=== PATIENT | female | born 1940 | race Caucasian/White ===

== ENCOUNTER → 2017-11-03 09:42 | Outpatient (CLI) | payer MEDICARE, OTHER, SELFPAY ==
--- NOTE | 2017-11-03 09:48 | US_ITS ---
STUDY: RENAL ULTRASOUND - COMPLETE REASON FOR EXAM: Female, 77 years old. Renal cysts. TECHNIQUE: Ultrasound evaluation of the kidneys was performed with real-time and static arango-scale imaging. COMPARISON: None. FINDINGS: RIGHT KIDNEY: Normal location of the right kidney, which is normal in size. The right kidney measures 9.5 x 4.4 x 5.1 cm. There is a normal cortex of the right kidney. The renal cortex measures 1.2 cm. No right renal masses evident. However, there are multiple small, round and ovoid anechoic foci throughout the renal cortex. These measure 1.2 x 1.2 x 1.2, 1.4 x 1.2 x 1.2, and 1.2 x 1.1 x 1.3 cm. Additionally, 2 echogenic foci are seen throughout the cortical medullary region both of these measure approximately 5 mm in size. There is no right hydronephrosis. DISTAL RIGHT URETER: There is non-visualization of the distal right ureter. There is no demonstrated right ureterovesical junction calculus. There is a visualized right ureteral jet. LEFT KIDNEY: Normal location of the left kidney, which is normal in size. The left kidney measures 10.3 x 5.1 x 5.4 cm. There is a normal cortex of the left kidney. The renal cortex measures 1.3 cm. There is no left renal mass. However, there are rounded and ovoid cystic foci. The these measure 2.9 x 5.5 x 3.7 cm, 1.4 x 1.7 x 1.6 cm and 1.9 x 1.7 x 1.4 cm. There are no left renal calculi. There is no left hydronephrosis. DISTAL LEFT URETER: There is non-visualization of the distal left ureter. There is no demonstrated left ureterovesical junction calculus. There is a visualized left ureteral jet. BLADDER: The distended urinary bladder has a volume of 76.2 ml. The empty urinary bladder has a volume of 10.7 ml. There is a normal wall thickness of the distended urinary bladder. There is no demonstrated mass within the urinary bladder. There are no demonstrated bladder calculi. US/Kidney and Bladder IMPRESSION: Bilateral renal cysts. Right nephrolithiasis versus nephrocalcinosis. Upon further review, potential left adrenal nodule measuring 4.[address] of the abdomen and pelvis performed May 14, 2015 indicates by report that this left adrenal finding is unchanged when compared to prior study. However, the adrenal nodule is larger on today's sonographic evaluation. Recommend comparison with recent/follow-up CT. Electronically Signed: Socrates Elizabeth MD at 12:28 EDT , Service support ,
== END ==
PROVIDERS: Family Provider Internal Medicine; PCP Internal Medicine; Visit Provider Nurse Practitioner Adult Health
DX: N28.1 Cyst of kidney, acquired (principal)
CPT/HCPCS: 76770

== ENCOUNTER → 2017-11-11 17:23 | Outpatient (CLI) | payer MEDICARE, OTHER, SELFPAY ==
--- NOTE | 2017-11-11 17:28 | CT_ITS ---
STUDY: CT ABDOMEN WITH CONTRAST REASON FOR EXAM: Female, 77 years old. Follow-up adrenal nodule from ultrasound and prior CT scan. RADIATION DOSAGE (If Supplied By Facility): CTDIvol = ( 17.03 ) mGy, DLP = ( 839.91 ) mGycm TECHNIQUE: Transaxial images were obtained post I.V. administration of 100 ml of Isovue 300 contrast, and with oral contrast. Sagittal and coronal images were reconstructed. Individualized dose optimization techniques were used for this CT. COMPARISON: Renal ultrasound 11/03/2017. CT scans 05/14/2015 and 04/21/2014. FINDINGS: There is mild atelectasis or fibrosis in the visualized posterior lung bases. The visualized portions of the heart are within normal limits. Normal liver. The gallbladder is partially contracted, which may be normal or abnormal, depending on when the patient last ate a fatty meal. Normal spleen. Normal pancreas. Normal bilateral adrenal glands. There is no demonstrated adrenal nodule in either the current or previous CT scan examinations. There are multiple right renal cysts, ranging up to 1.4 cm. Otherwise, normal right kidney. There are multiple left renal cysts, ranging up to 5.3 cm. Otherwise, normal left kidney. There is a moderate-sized hiatal hernia.. Normal small intestine. There are multiple colonic diverticula consistent with diverticulosis. There is non-visualization of the appendix. There is no evidence for appendicitis. There is diffuse atherosclerotic calcification of the abdominal aorta with elongation and tortuosity, but without a demonstrated aneurysm. Normal inferior vena cava. Normal retroperitoneum. There is an umbilical hernia which contains fat, but no bowel. There are multilevel degenerative changes of the visualized lumbar spine. CT/Abdomen WITH IV Contrast IMPRESSION: Moderate sized hiatal hernia. Colonic diverticulosis, without evidence for acute diverticulitis. Atherosclerosis. Bilateral renal cysts. No demonstrated urinary calculi or hydronephrosis. Contracted gallbladder, nonspecific finding, as above. No evidence for acute pathology. No demonstrated adrenal nodule. Electronically Signed: Ar Dempsey MD at 3:44 EDT , Service support ,
[2017-11-11 17:51] LABS: CREATININE FINGERSTICK 1.1 mg/dL (0.55-1.02)
== END ==
PROVIDERS: Family Provider Internal Medicine; PCP Internal Medicine; Visit Provider Internal Medicine
DX: E27.9 Disorder of adrenal gland, unspecified (principal); K44.9 Diaphragmatic hernia without obstruction or gangrene; K57.30 Diverticulosis of large intestine without perforation or abscess without bleeding; N28.1 Cyst of kidney, acquired
CPT/HCPCS: 74160; Q9967

== ENCOUNTER → 2018-04-01 17:32 | Outpatient (CLI) | payer MEDICARE, OTHER, SELFPAY | PROVIDERS: Family Provider Internal Medicine; PCP Internal Medicine; Visit Provider Nurse Practitioner Adult Health | DX: R30.0 Dysuria (principal) | CPT/HCPCS: 87086; 87088 ==

== ENCOUNTER → 2018-05-17 11:54 | Outpatient (CLI) | payer MEDICARE, OTHER, SELFPAY ==
[2018-05-17 13:37] LABS: Color, Urine Yellow (Yellow); Glucose, Dipstick Normal (Normal); Ketone-Dipstick 5 mg/dl (Negative); Leukocyte Esterase-Dipstick 500 /ul (Negative); Nitrite-Dipstick Negative (Negative); Occult Blood-Urine 25 /ul (Negative); Protein-Dipstick 30 mg/dl (Negative); Specific Gravity, Urine 1.025 (1.002-1.030); Urine Bilirubin Dipstick Negative (Negative); Urine Clarity Cloudy (Clear); Urine Urobilinogen 1 mg/dl (Normal)
[2018-05-17 13:45] LABS: Bacteria 2+ /hpf (None Seen); Mucous, Urine 1+ /hpf (<or=2+); Red Blood Cells-Urine 0-5 SEEN /hpf (0-5); Squamous Epithelial Cells - UA 0-5 SEEN /hpf (5-10); White Blood Cells 5-10 SEEN /hpf (0-5)
== END ==
PROVIDERS: Family Provider Internal Medicine; PCP Internal Medicine; Referring Provider Urology; Visit Provider Urology
DX: N39.0 Urinary tract infection, site not specified (principal); R10.84 Generalized abdominal pain
CPT/HCPCS: 81001; 87086; 87088

== ENCOUNTER 2019-11-15 14:32 | Emergency (ER) | payer OTHER, MEDICARE, SELFPAY ==
[2019-11-15 14:32] VITALS: BP 141/73; PULSE 67; RESP 16; TEMP 36.4
[2019-11-15 14:33] VITALS: BP 141/73; PULSE 67; RESP 16; TEMP 36.4; BMI 32.2
--- NOTE | 2019-11-15 14:43 | RAD_ITS ---
STUDY: X-RAY - LEFT WRIST REASON FOR EXAM: Female, 79 years old. PATIENT FELL. PAIN IN LEFT WRIST INTO LEFT HAND. PATIENT STATES HAS A HX OF A LEFT WRIST/FOREARM FX BEFORE. TECHNIQUE: 3 view(s) of the wrist were obtained. COMPARISON: Comparison is made with prior study dated March 02, 2010. FINDINGS: Evidence of prior fracture of the distal ulna as well as the distal radial metaphysis with residual deformity. There is degenerative arthrosis of the radiocarpal articulation. There is degenerative arthrosis of the distal radioulnar articulation. Normal carpal bones. Normal carpal articulations. Normal carpometacarpal articulation of the thumb. Normal second through fifth carpometacarpal articulations. Normal visualized metacarpal bones. Soft tissue swelling. RAD/Wrist min 3 Views IMPRESSION: No acute fracture is seen. Degenerative changes with evidence of prior fracture of the distal radius and distal ulna. Electronically Signed: Tonny Tee, at 15:04 EDT , Service support ,
--- NOTE | 2019-11-15 14:44 | ED.VIS.GEN ---
History of Present Illness Chief Complaint: Upper Extremity Injury Narrative: This patient is a 79-year-old female who presents after mechanical fall. She tripped and fell onto her left hand. She complains of pain to the left wrist and hand and also bit her lip. She did not lose consciousness. She has no headache. No vomiting. She is not anticoagulated. No neck chest abdominal or back pain. No injury to any other extremities. No paresthesias numbness weakness. Past Medical History - Allergies and Home Meds Allergies/Adverse Reactions: Allergies No Known Allergies Allergy (Verified 11/15/19 14:35) Primary Care Physician: Sanchez Lacey MD [Primary Care Provider] - Past Medical History: - - Hypertension, hyperlipidemia Review of Systems All systems negative except as indicated General: Denies: Fever Eyes: Denies: Visual changes - bilaterally ENT: Denies: Bilateral ear pain Cardiovascular: Denies: Chest pain Respiratory: Denies: Dyspnea Gastrointestinal: Denies: Nausea, Vomiting Musculoskeletal: Reports: Extremity Pain. Denies: Back pain Neurological: Denies: Headache Hematologic: Denies: Easy bruising, Easy bleeding Physical Exam Vital Signs/Narrative: Vital Signs Temp Pulse Resp BP 11/15/19 14:33 97.5 F L 67 16 141/73 H 11/15/19 14:32 97.5 F L 67 16 141/73 H Inital Vital Signs reviewed: Yes General: Well nourished Head: Normocephalic Eyes: EOMI ENT: Moist mucous membranes Neck: Supple Cardiovascular: Regular rate Respiratory: No distress Extremities: - - Tenderness of the left wrist and left hand without focal bony tenderness no obvious deformity palpable radial pulse brisk capillary refill normal sensation to light touch normal motor function no tenderness of the forearm elbow upper arm or shoulder Skin: Normal color Neurological: Alert, - - GCS of 15 with no focal or lateralizing neurological deficits Psychological: Normal affect Diagnostic/Tx/Re-eval Impressions Wrist X-Ray 11/15/19 14:43 IMPRESSION: No acute fracture is seen. Degenerative changes with evidence of prior fracture of the distal radius and distal ulna. Electronically Signed: Tonny Tee, at 15:04 EDT , Service support , Hand X-Ray 11/15/19 14:47 IMPRESSION: Degenerative joint disease of the hand and wrist, as described above. Electronically Signed: Tonny Tee, at 15:09 EDT , Service support , 11/15/19 14:43 Wrist min 3 Views [RAD] Stat 11/15/19 14:47 Hand Min 3 Views [RAD] Stat - Medical Decision Making X-rays obtained as above showed no acute fracture. Patient was given a Velcro wrist splint for comfort and advised on supportive care including rest, ice, elevation. Patient discharged. ED Disposition - Plan for ED Patient: Disposition: Home or Assisted Living Diagnosis: Left wrist sprain Instructions: ED Sprain Wrist Referrals: Sanchez Lacey MD [Primary Care Provider] -
--- NOTE | 2019-11-15 14:47 | RAD_ITS ---
STUDY: X-RAY - LEFT HAND REASON FOR EXAM: Female, 79 years old. PATIENT FELL. PAIN IN LEFT WRIST INTO LEFT HAND. PATIENT STATES HAS A HX OF A LEFT WRIST/FOREARM FX BEFORE. TECHNIQUE: 3 view(s) of the hand. COMPARISON: None. FINDINGS: Normal radiocarpal articulation. Normal distal radioulnar joint. Normal visualized carpal bones. Normal carpal articulations Normal carpometacarpal articulation of the thumb. Normal second through fifth carpometacarpal joints. Normal metacarpi. Normal metacarpophalangeal joint of the thumb. Normal interphalangeal joint of the thumb. Normal proximal and distal phalanges of the thumb. Normal metacarpophalangeal joints of the second through fifth fingers. There is diffuse articular joint space narrowing of the proximal and distal interphalangeal joints of the second through fifth fingers, but without erosive changes or periarticular soft tissue swelling. Normal phalanges of the second through fifth fingers. Soft tissue swelling. RAD/Hand Min 3 Views IMPRESSION: Degenerative joint disease of the hand and wrist, as described above. Electronically Signed: Tonny Tee, at 15:09 EDT , Service support ,
[2019-11-15 15:47] VITALS: PULSE 72; RESP 14; O2SAT 97
== END 2019-11-15 15:50 | disposition home or self-care (01) ==
PROVIDERS: Emergency Provider Emergency Medicine; PCP Internal Medicine
DX: S63.502A Unspecified sprain of left wrist, initial encounter (principal); W01.0XXA Fall on same level from slipping, tripping and stumbling without subsequent striking against object, initial encounter; M19.042 Primary osteoarthritis, left hand; E78.5 Hyperlipidemia, unspecified; I10 Essential (primary) hypertension
CPT/HCPCS: 73110; 73130; 99283

== ENCOUNTER → 2020-03-06 16:30 | Outpatient (CLI) | payer MEDICARE, OTHER, SELFPAY ==
[2020-03-06 17:01] LABS: Mucous, Urine 0 SEEN /hpf (<or=2+); Red Blood Cells-Urine 0 SEEN /hpf (0-5)
[2020-03-06 17:25] LABS: Color, Urine Yellow (Yellow); Glucose, Dipstick Normal (Normal); Ketone-Dipstick 5 mg/dl (Negative); Leukocyte Esterase-Dipstick 500 /ul (Negative); Nitrite-Dipstick Negative (Negative); Occult Blood-Urine 25 /ul (Negative); Protein-Dipstick Negative (Negative); Urine Bilirubin Dipstick Negative (Negative); Urine Clarity Sl. Cloudy (Clear); Urine Urobilinogen Normal (Normal)
[2020-03-06 17:33] LABS: White Blood Cells 10-25 SEEN /hpf (0-5)
[2020-03-06 17:34] LABS: Bacteria 1+ /hpf (None Seen); Squamous Epithelial Cells - UA 5-10 SEEN /hpf (5-10)
== END ==
PROVIDERS: PCP Internal Medicine; Referring Provider Urology; Visit Provider Urology
DX: M54.89 Other dorsalgia (principal); R31.21 Asymptomatic microscopic hematuria
CPT/HCPCS: 81001; 87086; 87088

== ENCOUNTER → 2020-09-06 10:52 | Outpatient (CLI) | payer MEDICARE, OTHER, SELFPAY | PROVIDERS: PCP Internal Medicine; Visit Provider Nurse Practitioner | DX: R00.2 Palpitations (principal); R07.9 Chest pain, unspecified | CPT/HCPCS: 93225; 93226 ==

== ENCOUNTER 2021-11-26 16:45 | Emergency (ER) | payer MEDICARE, OTHER, SELFPAY ==
[2021-11-26 16:45] VITALS: BP 134/81; PULSE 75; RESP 18; TEMP 36; O2SAT 98; BMI 30.9
[2021-11-26 17:33] LABS: Mucous, Urine 0 SEEN /hpf (<or=2+)
[2021-11-26 17:43] LABS: Color, Urine Yellow (Yellow); Glucose, Dipstick Normal (Normal); Ketone-Dipstick Negative (Negative); Leukocyte Esterase-Dipstick 500 /ul (Negative); Nitrite-Dipstick Negative (Negative); Occult Blood-Urine 10 /ul (Negative); Protein-Dipstick Negative (Negative); Urine Bilirubin Dipstick Negative (Negative); Urine Clarity Clear (Clear); Urine Urobilinogen 1 mg/dl (Normal)
[2021-11-26 17:52] LABS: Bacteria 1+ /hpf (None Seen); Red Blood Cells-Urine 0-5 SEEN /hpf (0-5); Squamous Epithelial Cells - UA 0-5 SEEN /hpf (5-10); White Blood Cells 5-10 SEEN /hpf (0-5)
[2021-11-26 18:01] VITALS: BP 136/72; O2SAT 97
--- NOTE | 2021-11-26 18:14 | EDS_ITS ---
HPI History of Present Illness Chief Complaint: Confusion Informant: patient and spouse/S.O. Onset/Context/Timing Onset: Month(s) Context: Gradual Onset Timing: Waxes and wanes Quality: Confusion Location: Generalized Worsened by: Nothing Relieved by: Nothing Narrative Narrative: Patient presents with increasing confusion that has been getting progressively worse over the past few months but became worse over the past couple days. states the patient is getting more forgetful. states patient cannot remember what she had for breakfast today. states patient has been having difficulty remembering her own birthday. Patient denies any fevers or chills. Patient states she has been having some low back pain. Patient denies any dysuria or hematuria. Patient denies any nausea or vomiting. Patient does have a history of Parkinson's disease and ADHD. [facility] Medical History Parkinson's disease Home Medications carbidopa-levodopa 2 tab PO TID 11/15/19 [History Last Taken Unknown] omeprazole 20 mg PO DAILY 11/15/19 [History Last Taken Unknown] paroxetine HCl 20 mg PO DAILY 11/15/19 [History Last Taken Unknown] cephalexin 500 mg PO Q6 #20 capsule 11/26/21 [Rx Last Taken Unknown] Allergy/AdvReac Type Severity Reaction Status Date / Time No Known Allergies Allergy Verified 11/26/21 16:48 Surgical History no surgical history no surgical history Social History Smoking Status: Never smoker ROS ROS ED Constitutional Constitutional ED: Denies chills or fever(s) Eyes Eyes: Denies blurry vision or change in vision ENT ENT ED: Denies rhinorrhea or sore throat Cardiovascular Cardiovascular: Denies chest pain or palpitations Respiratory/Chest Respiratory/Chest: Denies cough or dyspnea Gastrointestinal Gastrointestinal: Denies nausea or vomiting Genitourinary Genitourinary ED: Denies dysuria or hematuria Musculoskeletal Musculoskeletal: Reports back pain; Denies neck pain Integumentary Denies abscess or rash Neurologic Neurologic: Denies headache(s) or weakness Allergic/Immunologic Allergic/Immunologic ED: Denies mouth swelling or urticaria EXAM Physical Exam Const Vital Signs: 11/26/21 16:45 11/26/21 18:01 11/26/21 19:17 Temperature 96.8 F L Temperature Source Temporal Pulse Rate 75 68 Respiratory Rate 18 15 Blood Pressure 134/81 H 136/72 H 116/85 H Blood Pressure Mean 98 93 95 Pulse Ox 98 97 94 Oxygen Delivery Method Room Air Room Air Positive well nourished and well developed General Appearance ED: well developed and NAD HEENT Reports moist mucous membranes Neck supple and no JVD Resp normal respiratory effort and clear to auscultation bilaterally Cardio regular rate, regular rhythm and no murmurs GI normal to inspection, nondistended, normoactive bowel sounds and non-tender Palpation: soft Extremity normal to inspection General Extremety ED: Negative for edema or tenderness General Extremity: Negative for edema Neuro CN's II-XII intact bilaterally and no sensory deficits noted Neuro Narrative: Patient was able to remember her birthday here in the emergency department. Sensorium / Orientation: alert Motor Exam: strength 5/5 throughout Psych mental status grossly normal Skin no rashes or lesions noted MDM MDM MDM Narrative Medical decision making narrative: Urinalysis shows a leukocyte esterase of 500 with 5-10 white blood cells and 1+ bacteria. CBC was within normal limits. Comprehensive metabolic profile shows slightly elevated BUN of 24 but creatinine was normal. Lactate was normal. CT scan of the brain was obtained. There is no acute intracranial abnormality. This was interpreted by the radiologist and reviewed by myself. Urine culture was ordered. Patient was given a dose of Rocephin here. Patient was given IV fluids. Patient was advised of her findings. Patient was given a prescription for Keflex. Patient was instructed to start this tomorrow morning. Patient was instructed to follow-up with her primary care physician in 3 to 5 days. Patient and her understood and were agreeable with the plan. All questions were answered. Lab Data Attestation: I reviewed the patient's lab results. Labs: Laboratory Results - last 24 hr 11/26/21 11/26/21 11/26/21 17:25 18:40 18:40 WBC 7.5 RBC 4.12 L Hgb 12.9 Hct 40.6 MCV 98.5 MCH 31.3 MCHC 31.8 L RDW Std Deviation 47.8 H RDW Coeff of Sasha 13.2 Plt Count 252 MPV 9.5 Immature Gran % (Auto) 0.300 Neut % (Auto) 55.7 Lymph % (Auto) 31.1 [place] % (Auto) 6.8 Eos % (Auto) 5.7 H Baso % (Auto) 0.4 Absolute Neuts (auto) 4.2 Absolute Lymphs (auto) 2.34 Nucleated RBC % 0 Sodium 142 Potassium 3.8 Chloride 108 H Carbon Dioxide 30.0 Anion Gap 4 L BUN 24 H Creatinine 0.99 Estim Creat Clear Calc 38.48 Est GFR (MDRD) Af Amer 69 Est GFR (MDRD) Non-Af 57 L BUN/Creatinine Ratio 24.2 H Glucose 112 H Lactic Acid Calcium 8.8 Total Bilirubin 0.50 AST 14 L ALT 8 L Alkaline Phosphatase 112 Total Protein 7.1 Albumin 3.3 Globulin 3.8 Albumin/Globulin Ratio 0.9 Urine Color Yellow Urine Clarity Clear Urine pH 6.0 Ur Specific [place] 1.020 Urine Protein Negative Urine Glucose (UA) Normal Urine Ketones Negative Urine Occult Blood 10 H Urine Nitrite Negative Urine Bilirubin Negative Urine Urobilinogen 1 H Ur Leukocyte Esterase 500 H Urine RBC 0-5 SEEN Urine WBC 5-10 SEEN Ur Squamous Epith Cells 0-5 SEEN Urine Bacteria 1+ Urine Mucus 0 SEEN 11/26/21 18:40 WBC RBC Hgb Hct MCV MCH MCHC RDW Std Deviation RDW Coeff of Sasha Plt Count MPV Immature Gran % (Auto) Neut % (Auto) Lymph % (Auto) [place] % (Auto) Eos % (Auto) Baso % (Auto) Absolute Neuts (auto) Absolute Lymphs (auto) Nucleated RBC % Sodium Potassium Chloride Carbon Dioxide Anion Gap BUN Creatinine Estim Creat Clear Calc Est GFR (MDRD) Af Amer Est GFR (MDRD) Non-Af BUN/Creatinine Ratio Glucose Lactic Acid 0.8 Calcium Total Bilirubin AST ALT Alkaline Phosphatase Total Protein Albumin Globulin Albumin/Globulin Ratio Urine Color Urine Clarity Urine pH Ur Specific [place] Urine Protein Urine Glucose (UA) Urine Ketones Urine Occult Blood Urine Nitrite Urine Bilirubin Urine Urobilinogen Ur Leukocyte Esterase Urine RBC Urine WBC Ur Squamous Epith Cells Urine Bacteria Urine Mucus Radiography Diagnostic Testing: Clinical Impression(s) from Imaging Studies Brain CT 11/26/21 18:18 IMPRESSION: 1. No intracranial neoplasms or intracranial metastatic disease. 2. No ischemic or hemorrhagic cerebral infarction. 3. No subdural, epidural, intracerebral hematoma, hemorrhage or contusion. No subarachnoid hemorrhage. 4. Mild cortical, central, and cerebellar atrophy, appropriate for age. 5. No other intracranial pathology. 6. Normal calvarium without fractures. 7. Mucosal thickening in the posterior aspect of the left ethmoid sinus. The other paranasal sinuses are normal. Electronically Signed: Eugene Campos MD at 19:24 EDT , Discharge Plan Triage Chief Complaint: Confusion ED Provider: Santosh Santillan Dx/Rx/DC Orders Clinical Impression: Urinary tract infection, Confusion Instructions: ED CYSTITIS Female Adult Prescriptions: New cephalexin [cephalexin] 500 MG capsule 500 mg PO Q6 Qty: 20 RF: 0 No Action paroxetine HCl 20 MG tablet 20 mg PO DAILY RF: 0 omeprazole 20 MG capsule,delayed release(DR/EC) 20 mg PO DAILY RF: 0 carbidopa-levodopa 1 EACH tablet 2 tab PO TID RF: 0 Primary Care Provider: Sanchez Lacey Referrals: Sanchez Lacey MD [Primary Care Provider] - 3-5 Days Disposition Disposition: Home, Self Care
--- NOTE | 2021-11-26 18:18 | CT_ITS ---
STUDY: CT BRAIN WITHOUT CONTRAST ENHANCEMENT OF 1907 HOURS ON 11/26/2021 REASON FOR EXAM: 81-year-old female with confusion. RADIATION DOSAGE (If Supplied By Facility): CTDIvol = ( 44.99 ) mGy, DLP = ( 779.24 ) mGycm TECHNIQUE: Transaxial CT imaging of the brain was performed without administration of intravenous contrast material. COMPARISON: No relevant priors. FINDINGS: There is mild cortical, central, and cerebellar atrophy. Bilateral basal ganglia calcification is noted, not unusual for age. There is no evidence of ischemic or hemorrhagic surgical infarct. There is no evidence of intracranial neoplasms or intracranial metastatic disease. There is no midline shift. No subdural, epidural, or intracerebral hematoma, hemorrhage or contusion. The sella and pituitary are normal. The posterior fossa is normal. The brainstem has a normal appearance. Normal calvarium without linear or depressed skull fractures. There is mucosal thickening of posterior left ethmoid sinus. The other paranasal sinuses are normal. CT/Brain/Head without Contrast IMPRESSION: 1. No intracranial neoplasms or intracranial metastatic disease. 2. No ischemic or hemorrhagic cerebral infarction. 3. No subdural, epidural, intracerebral hematoma, hemorrhage or contusion. No subarachnoid hemorrhage. 4. Mild cortical, central, and cerebellar atrophy, appropriate for age. 5. No other intracranial pathology. 6. Normal calvarium without fractures. 7. Mucosal thickening in the posterior aspect of the left ethmoid sinus. The other paranasal sinuses are normal. Electronically Signed: Eugene Campos MD at 19:24 EDT ,
[2021-11-26 18:53] LABS: Absolute Lymphocyte Count 2.34 X10^3/uL (0.83-4.51); Absolute Neutrophil Count 4.2 X10^3/uL (2.0-7.7); Basophil# 0.03 X10^3/uL; Basophil% 0.4 % (0-1); Eosinophil# 0.43 X10^3/uL; Eosinophils% 5.7 % (0-5); Hematocrit 40.6 % (37-47); Hemoglobin 12.9 g/dL (12.0-15.0); Lymphocyte # 2.34 X10^3/ul (0.83-4.51); Lymphocyte % 31.1 % (19-41); Mean Corp Hgb Conc 31.8 g/dL (32-36); Mean Corpuscular Hgb 31.3 pg (27.0-32.0); Mean Corpuscular Volume 98.5 fL (81-99); Mean Platelet Vol. 9.5 fl (6.2-12.0); Monocyte# 0.51 X10^3/uL; Monocyte% 6.8 % (0-10); NRBC Flagged by Analyzer 0 % (0-5); Neutrophil % 55.7 % (47-70); Platelet Count 252 K/mm3 (150-450); RBC Distribution Width CV 13.2 % (11.6-14.6); RBC Distribution Width SD 47.8 fl (35.1-43.9); Red Blood Count 4.12 M/mm3 (4.2-5.4); White Blood Count 7.5 K/mm3 (4.4-11.0)
[2021-11-26] MEDS: 0.9% Normal Saline 1,000 ML 1000 ML IV (18:59)
[2021-11-26 19:11] LABS: ALB/GLOB Ratio 0.9 RATIO (0.9-2.4); AST(SGOT) 14 U/L (15-37); Alanine Aminotransfer ALT/SGPT 8 U/L (13-56); Albumin, Serum 3.3 g/dL (3.2-5.0); Alkaline Phosphatase 112 U/L (45-117); Anion Gap 4 (5-15); BUN 24 mg/dL (7-18); BUN/Creat Ratio 24.2 RATIO (10-20); Calcium,Total 8.8 mg/dL (8.5-10.1); Chloride 108 mmol/L (98-107); Creatinine, Serum 0.99 mg/dL (0.55-1.02); EST Glomerular Filtration Rate 57 mL/min (>60); Est Glom Filt Rate - Afr Amer 69 mL/min (>60); Estimated Creatinine Clearance 38.48 ml/min; Globulin 3.8 g/dL (2.2-4.2); Glucose 112 mg/dL (74-106); Potassium 3.8 mmol/L (3.5-5.1); Protein, Total 7.1 g/dL (6.4-8.2); Sodium Level 142 mmol/L (136-145)
[2021-11-26 19:14] LABS: Lactic Acid 0.8 mmol/L (0.4-1.9)
[2021-11-26 19:17] VITALS: BP 116/85; PULSE 68; RESP 15; O2SAT 94
[2021-11-26] MEDS: Ceftriaxone 1 GM/50 ML BAG IV (19:45)
[2021-11-26 20:57] VITALS: BP 132/75
== END 2021-11-26 20:58 | disposition home or self-care (01) ==
PROVIDERS: Emergency Provider Emergency Medicine; PCP Internal Medicine; Visit Provider Emergency Medicine
DX: N39.0 Urinary tract infection, site not specified (principal); G20 Parkinson's disease; R41.0 Disorientation, unspecified; F90.9 Attention-deficit hyperactivity disorder, unspecified type
CPT/HCPCS: 70450; 80053; 81001; 83605; 85025; 87040; 87086; 99283; J7030; A4216

== ENCOUNTER → 2021-12-19 | Outpatient (CLI) | payer MEDICARE, OTHER, SELFPAY | END | disposition home or self-care (01) | PROVIDERS: PCP Internal Medicine; Visit Provider Obstetrics & Gynecology | DX: N39.0 Urinary tract infection, site not specified (principal) | CPT/HCPCS: 87077; 87086; 87088 ==

== ENCOUNTER → 2022-03-18 | Outpatient (CLI) | payer MEDICARE, OTHER, SELFPAY | END | disposition home or self-care (01) | PROVIDERS: PCP Internal Medicine; Referring Provider Urology; Visit Provider Urology | DX: N30.01 Acute cystitis with hematuria (principal) | CPT/HCPCS: 87086; 87088 ==

== ENCOUNTER → 2022-03-20 | Outpatient (CLI) | payer MEDICARE, OTHER, SELFPAY | END | disposition home or self-care (01) | PROVIDERS: PCP Internal Medicine; Visit Provider Urology | DX: N30.01 Acute cystitis with hematuria (principal) | CPT/HCPCS: 87086 ==

== ENCOUNTER → 2023-04-10 | Outpatient (CLI) | payer MEDICARE, OTHER, SELFPAY ==
--- NOTE | 2023-04-10 13:01 | CT_ITS ---
CT LEFT LOWER EXTREMITY WITHOUT CONTRAST. CLINICAL INDICATION: OSTEOARTHRITIS LEFT KNEE. PRE-OP [place] [employer] KNEE PROTOCOL TECHNIQUE: Axial CT images of the LEFT lower extremity was performed without IV contrast material. Coronal and sagittal reformats were provided. RADIATION DOSAGE (If Supplied By Facility): CTDIvol = ( 18.76 ) mGy, DLP = ( 1228.81 ) mGycm COMPARISON: None FINDINGS: Noncontrast CT of the left hip knee and ankle per [facility] protocol. The patient does have some osteoarthritic change involving the left hip with joint space narrowing as well as subchondral cyst formation and osteophytosis around the left femoral head. There is some trochanteric enthesopathy. No acute fracture is detected. Degenerative changes are present at the pubic symphysis. There is colonic diverticular disease. Left adnexal clips are present. Regarding the knee, the patient does have moderate to severe medial and [id number] lateral tibiofemoral joint compartmental narrowing. Joint loose bodies are detected. No acute fracture is present. A joint effusion is small. At the ankle there is mild tibiotalar joint space narrowing. Achilles enthesopathy. Plantar spur. Some degenerative changes are present involving the articulations of the midfoot. CT/Extremity Lower without Contra IMPRESSION: Preprocedural imaging provided of left lower extremity. Electronically Signed: Arley Rollins MD at 20:29 EDT ,
[2023-04-10 14:43] LABS: Absolute Lymphocyte Count 1.54 X10^3/uL (0.83-4.51); Absolute Neutrophil Count 3.4 X10^3/uL (2.0-7.7); Basophil# 0.04 X10^3/uL; Basophil% 0.7 % (0-1); Eosinophil# 0.31 X10^3/uL; Eosinophils% 5.4 % (0-5); Hemoglobin 13.2 g/dL (12.0-15.0); Lymphocyte # 1.54 X10^3/ul (0.83-4.51); Lymphocyte % 26.9 % (19-41); Mean Corp Hgb Conc 31.4 g/dL (32-36); Mean Corpuscular Hgb 30.6 pg (27.0-32.0); Mean Corpuscular Volume 97.2 fL (81-99); Monocyte# 0.42 X10^3/uL; Monocyte% 7.3 % (0-10); NRBC Flagged by Analyzer 0 % (0-5); Neutrophil % 59.5 % (47-70); Platelet Count 263 K/mm3 (150-450); RBC Distribution Width CV 12.7 % (11.6-14.6); RBC Distribution Width SD 45.9 fl (35.1-43.9); Red Blood Count 4.32 M/mm3 (4.2-5.4); White Blood Count 5.7 K/mm3 (4.4-11.0)
[2023-04-10 15:06] LABS: Albumin, Serum 3.4 g/dL (3.2-5.0); Anion Gap 5 (5-15); BUN 32 mg/dL (7-18); BUN/Creat Ratio 25.4 RATIO (10-20); Calcium,Total 8.9 mg/dL (8.5-10.1); Chloride 109 mmol/L (98-107); Creatinine, Serum 1.26 mg/dL (0.55-1.02); EST Glomerular Filtration Rate 43 mL/min (>60); Est Glom Filt Rate - Afr Amer 52 mL/min (>60); Glucose 121 mg/dL (74-106); Potassium 3.8 mmol/L (3.5-5.1); Sodium Level 140 mmol/L (136-145)
[2023-04-10 15:14] LABS: Hemoglobin A1c 5.6 % (3.8-5.6)
[2023-04-10 15:15] LABS: Magnesium 2.1 mg/dL (1.6-2.6); Thyroid Stim Hormone (TSH) 3.12 uIU/mL (0.358-3.74)
== END | disposition home or self-care (01) ==
PROVIDERS: Anesthesiology; PCP Internal Medicine; Referring Provider Orthopaedic Surgery; Visit Provider Orthopaedic Surgery
DX: Z01.818 Encounter for other preprocedural examination (principal); R94.6 Abnormal results of thyroid function studies; R73.09 Other abnormal glucose; M17.12 Unilateral primary osteoarthritis, left knee
CPT/HCPCS: 36415; 73700; 80048; 82040; 83036; 83735; 84443; 85025; 87081

== ENCOUNTER 2023-04-27 11:06 | Observation (INO) | payer MEDICARE, OTHER, SELFPAY ==
[2023-04-27] VITALS (11 sets, daily range): BP systolic 94–149; BP diastolic 41–82; PULSE 66–98; RESP 14–18; TEMP 36.1–36.8; O2SAT 92–100; BMI 30.3
[2023-04-27] MEDS: Gabapentin 600 MG Tablet PO (06:24)
[2023-04-27] MEDS: Acetaminophen 500 MG Tablet 1000 MG PO ×3 (06:25→21:50)
[2023-04-27 06:26] LABS: Bedside Glucose 90 mg/dL (74-106)
[2023-04-27] MEDS: Lactated Ringers 1,000 ML 999 ML IV ×2 (06:32→08:10)
[2023-04-27] MEDS: Magnesium 1 GM over 15 mins IV (06:35)
[2023-04-27] MEDS: Lactated Ringers 1,000 ML 75 ML IV (06:37)
--- NOTE | 2023-04-27 07:30 | KNEE_PTH ---
PATIENT: SILVIANO WU LOC: MS3 U#:[id number] AGE/SX: 82/F [place] [facility] [place]: Dr. Ayaz Estrella DO : 1940 BED: 1 DIS: 04/28/2023 SPEC #: [id number] RECD: 04/27/23 10:47 STATUS: SIENNA REFidel #: [id number] SAIMA: 04/27/23 07:[address]: Ayaz Estrella DEPT: SURGICAL PATHOLOGY RECD BY: Deep Cornelius ENTERED: 04/27/23 11:14 SP TYPE: TOTAL KNEE OTHR DR: Dr. Sanchez Lacey MD Tissues: Knee, NOS Procedures: Decalcification bone/plaque Surgery Specimen Level IV HEADER OPERATION: ERAS, total knee replacement robotic arm assist PRE-OP DIAGNOSIS: Severe osteoarthritis left knee TISSUE SUBMITTED: Left knee bone and tissue MICROSCOPIC DIAGNOSIS Bone and tissue, left knee, total knee replacement/resection: Pieces of bone with degenerative osteoarthritic changes. DANIELA:ingrid 04/30/2023 MICROSCOPIC DESCRIPTION Slides are reviewed. GROSS DESCRIPTION Received is one container designated bone and soft tissue left knee. The specimen consists of multiple fragments of schulz-yellow bone measuring in aggregate 10.0 x 10.0 x 3.0 cm. No soft tissue is identified. A number of bony fragments contain articular surfaces consistent with tibial plateau and femoral condyle and displaying prominent osteophyte formation, eburnation and bone erosion. Freight Tallier sections are submitted in one cassette after decalcification. / DANIELA:ingrid 04/27/2023 TC:5 CPT: 03417, 21878
[2023-04-27] MEDS: Cefazolin 2 GM in 0.9% Normal Saline (100mL Bag) 100 ML IV (07:40)
[2023-04-27] MEDS: dexAMETHasone 10 MG/ML Vial IV (08:00)
[2023-04-27] MEDS: JPS (Morphine 10mg/ml) OPERA.SITE (08:57)
[2023-04-27] MEDS: TRANEXAMIC ACID 2,000 MG, 0.9% Normal Saline (100mL Bag) 100 ML OPERA.SITE (08:58)
--- NOTE | 2023-04-27 09:06 | PCM.OPRPT ---
Report of Operation Date of Procedure: 04/27/23 Pre-Operative Diagnosis: OA Left knee Post-Operative Diagnosis: same Surgery/Procedure Performed:: Left TKR Description of Surgical Findings:: Report of Operation Date of Procedure: 04/27/2023 Preoperative Diagnosis: [Left ] knee primary osteoarthritis Postoperative Diagnosis: [Left ] knee primary osteoarthritis Operation: Robotic Assisted Knee Total Arthroplasty, [Left ] knee Surgeon: Dr Ayaz Estrella DO Mud Jack Nozzle Worker: Freddy Gordon PA-C Anesthesia: spinal Anesthesiologist: Henri Donnelly M.D. Findings: Stable knee with good patella tracking Specimen(s): Bony cuts Complications: No intraoperative complications Estimated Blood Loss: 20 cc IV Fluids: 1000 cc crystalloid Implants Used: 1. [place] Triathlon press fit size 3 CR femur 2. [place] Triathlon size 3 tibia 3. 29 mm patella 4. 9 mm CS polyethylene Brief History Operative Indications: [ (82 y/o female) ] with history of [left ] knee osteoarthrosis with radiographic findings with loss of joint space, osteophyte formation and subchondral sclerosis. Failed conservative measures as mentioned in the H&P. Discussion of total knee arthroplasty as well as risk and benefits were discussed with the patient including but not limited to blood loss, DVTs, PEs, neurovascular damage, general risk of anesthesia including loss of life, and stiffness or instability were also discussed with the patient. Patient demonstrated understanding and was able to sign informed consent. Procedure: On the date of procedure, patient's [left ] lower extremity was marked in the preoperative area. The patient was then taken back to the operating room where that patient was placed on the table in the supine position. All bony prominences were identified and well-padded. Anesthesia assumed control of the C-spine and airway throughout the remainder of the procedure. A tourniquet was placed on the [left ] upper thigh and the leg was prepped in a sterile fashion. The surgeon then scrubbed at this time. Upon reentering the room, the [left ] lower extremity was draped in a standard orthopedic fashion. A timeout was then called and everyone agreed upon the side, the site, the procedure to be performed, patient's identity and antibiotics given. Esmarch bandage was used to exsanguinate the extremity and the tourniquet was placed up to 250 mmHg with the knee in flexion. A midline skin incision was made and a sharp dissection was taken down through skin, subcutaneous tissue and fat. The standard medial parapatellar incision was made and the patella was subluxed laterally. An appropriate deep MCL release was done and the fat pad was resected. Our attention was then directed to the patella. The patella was everted and a flat resection was made. The knee was then flexed up and 2 femoral pins were placed inside the incision and 2 tibial pins were placed outside the incision in the medial tibia bicortically. Once this was completed, the 2 checkpoints in the femur and tibia were placed. Knee was then flexed up and the bony landmarks were registered. Once the was completed, the knee taken through range of motion and manually stressed allowing us to plan for an appropriate tibial cut. The robotic arm was brought into the field sterilely and checkpoint and saw were registered. Based on the patient's deformity, the tibial cut was made in [2 degrees varus ]. At this time, the tensioner was then placed in the joint and ligament tension was checked at 90 degrees and full extension. Based on the patient's ligamentous tension, appropriate adjustments were made to the operative plan and ligament releases were done. Once we were happy with our operative plan with balanced flexion and extension gaps, our attention was directed to the femur. The robot was brought into the field sterilely and registered. Posterior condylar cuts, anterior chamfer cuts and anterior cuts were appropriately made for a [size 3 ] femur. When these were completed, the saws were switched out in the distal femoral and posterior chamfer cuts were made. Protecting the soft tissue throughout this time. A [ size 3 ] base plate was selected. The knee was flexed to 90 degrees and soft tissues and posterior osteophytes were removed from the joint. 40 cc of the periarticular injection was injected into the posterior medial corner of the joint. The appropriate trials were then placed on the femur and tibia. A trial polyethylene was trialed to ensure proper balancing and stability of the knee. The appropriate tibial internal rotation was then marked with a bovie. Our attention was then directed to the patella. The lug holes were drilled and the patella trial was placed. Patellar tracking was checked and deemed appropriate. Once we were happy, lug holes were drilled for the femur and trial components were removed. The tibia was subluxed and pinned into place and the keel was punched and drilled appropriately. Final components were verified and opened. The wound was copiously irrigated with normal saline. The components were impacted into place with the tibia, femur and finally the patella. The trial poly component was placed and the knee was placed in full extension. The tracking, alignment and balance were verified and a [ 9 mm CS ] polyethylene component was placed. Once the final components were placed an Irrisept lavage was performed and the wound was copiously irrigated with normal saline solution and the periarticular injection was given. the wound was closed in a layer-valdivia fashion using #1 vicryl interrupted sutures for the arthrotomy, 2-0 interrupted vicryl suture for the subcuticular layer and yogesh for final skin closure. A sterile compressive dressing was then placed. The patient was then awakened from anesthesia, transferred to the [place] [place] and transferred to the PACU for recovery. My physician admin assistant was a vital part of this case. He was important in appropriate retraction during the case, and protection of soft tissues during bony cuts. His intimate knowledge of the case and my steps aided in safe and expedient completion of the procedure as well as appropriate position of the leg during the case. He was also vital in assisting with closure under my direct supervision. Due to the complexity of this case, robotic arm was used to assist in the surgery to improve accuracy and clinical outcomes. Post-op Plan: DVT ppx; ASA 81 mg BID, thigh high compression stockings Follow up: in office in 2 weeks for wound check PT: to start POD #0 at hospital, outpatient PT should be arranged. Preoperative antibiotic: Ancef 2 grams IV Ayaz Estrella DO Surgeon: Ayaz Estrella electronics design engineer: Freddy Gordon Type of Anesthesia: Spinal Anesthesiologist: Henri Donnelly Specimen's removed: bone Estimated Blood Loss (mL): 20 cc Fluids Replaced: 1000 cc crystalloid Admit VTE Documentation VTE Present on Admission: No VTE Mechan Device Prophylaxis: SCD's and Thigh High SOFI Hose VTE Pharm Prophylaxis ordered?: Yes
--- NOTE | 2023-04-27 09:35 | RAD_ITS ---
STUDY: X-RAY - LEFT KNEE REASON FOR EXAM: Female, 82 years old. Post op -- AP and Lateral xray of operative knee in PACU. TECHNIQUE: 2 views of the left knee. COMPARISON: None. FINDINGS: There are new postoperative changes related to left total knee arthroplasty with patellar resurfacing. There is a vertical staple line along the anterior aspect of the knee. There is gas in the patellofemoral joint recess and anterior soft tissues, compatible with recent surgery. The orthopedic hardware components are intact. There is no periprosthetic fracture. Normal proximal tibiofibular articulation. RAD/Knee 1 or 2 Views IMPRESSION: New postoperative changes related to left total knee arthroplasty. Electronically Signed: Anish Mueller MD at 9:52 EDT ,
[2023-04-27] MEDS: Lactated Ringers 1,000 ML 125 ML IV (10:44)
[2023-04-27] MEDS: Aspirin 81 MG TAB.CHEW PO ×2 (11:57→21:51)
[2023-04-27] MEDS: Paroxetine 20 MG Tablet 30 MG PO (11:58)
[2023-04-27] MEDS: Senna/Docusate Sodium 1 Tablet 2 TABLET PO ×2 (11:58→21:50)
[2023-04-27] MEDS: Levothyroxine 50 MCG Tablet PO (11:58)
[2023-04-27] MEDS: Carbidopa/Levodopa 25/100 Tablet PO ×4 (11:59→21:50)
[2023-04-27] MEDS: Pantoprazole Sodium 20 MG Tablet PO (11:59)
[2023-04-27] MEDS: Potassium Chloride Oral Tablet 10 MEQ PO (11:59)
[2023-04-27] MEDS: Cefazolin 1 GM/50 ML BAG IV ×2 (14:57→22:43)
[2023-04-27] MEDS: Atorvastatin Calcium 40 MG Tablet PO (21:51)
[2023-04-28 03:03] VITALS: BP 142/97; PULSE 60; RESP 16; TEMP 36.7; O2SAT 94
[2023-04-28 06:19] LABS: Hemoglobin 9.1 g/dL (12.0-15.0); Mean Corp Hgb Conc 32.5 g/dL (32-36); Mean Corpuscular Hgb 31.9 pg (27.0-32.0); Mean Corpuscular Volume 98.2 fL (81-99); Mean Platelet Vol. 9.4 fl (6.2-12.0); Platelet Count 176 K/mm3 (150-450); RBC Distribution Width SD 46.1 fl (35.1-43.9); Red Blood Count 2.85 M/mm3 (4.2-5.4)
[2023-04-28 07:01] LABS: Anion Gap 6 (5-15); BUN 25 mg/dL (7-18); BUN/Creat Ratio 21.7 RATIO (10-20); Calcium,Total 8.2 mg/dL (8.5-10.1); Chloride 110 mmol/L (98-107); Creatinine, Serum 1.15 mg/dL (0.55-1.02); EST Glomerular Filtration Rate 48 mL/min (>60); Est Glom Filt Rate - Afr Amer 58 mL/min (>60); Glucose 111 mg/dL (74-106); Potassium 4.2 mmol/L (3.5-5.1); Sodium Level 141 mmol/L (136-145)
[2023-04-28 07:25] VITALS: BP 104/54; PULSE 58; RESP 18; TEMP 36.5; O2SAT 100
[2023-04-28] MEDS: Acetaminophen 500 MG Tablet 1000 MG PO ×2 (07:30→14:45)
[2023-04-28] MEDS: Levothyroxine 50 MCG Tablet PO (07:30)
[2023-04-28 09:52] VITALS: O2SAT 94
[2023-04-28 10:30] VITALS: BP 108/56; PULSE 67; RESP 18; TEMP 36.6; O2SAT 94
[2023-04-28] MEDS: Senna/Docusate Sodium 1 Tablet 2 TABLET PO (10:31)
[2023-04-28] MEDS: amLODIPine 2.5 MG Tablet PO (10:31)
[2023-04-28] MEDS: Carbidopa/Levodopa 25/100 Tablet PO ×3 (10:31→17:42)
[2023-04-28] MEDS: Pantoprazole Sodium 20 MG Tablet PO (10:31)
[2023-04-28] MEDS: hydroCHLOROthiazide 12.5mg 12.5 MG PO (10:31)
[2023-04-28] MEDS: Potassium Chloride Oral Tablet 10 MEQ PO (10:31)
[2023-04-28] MEDS: Aspirin 81 MG TAB.CHEW PO (10:31)
[2023-04-28] MEDS: Paroxetine 20 MG Tablet 30 MG PO (10:32)
[2023-04-28 11:06] VITALS: O2SAT 95
--- NOTE | 2023-04-28 11:20 | CASEMGMT ---
Addendum entered by Rosa Pruett 04/28/23 16:07: Pt and family aware that she was accepted by inpatient rehab and she can dc today. They deny any questions. Pt nurse aware as well. Addendum entered by Rosa Pruett 04/28/23 13:08: JAVI ROBB back into pt room. Pt states she is agreeable to inpt rehab unit at [facility]. Updated SW. Original Note: JAVI ROBB Assessment: Face to Face with pt for initial transition planning/care coordination assessment. JAVI ROBB introduced self and role at [facility], pt voices understanding and consents to assessment. Pt is A&O x4 and answers all questions appropriately at this time. Pt sitting up in chair with dtr and present in room. Pt agreeable to assessment with visitors present. Care providers, pharmacy, and demographics verified/updated. Admitting Dx: TKR PCP:Abhijit Specialists:lizzeth Estrella; Zoë Whitmore at [facility] in [place] for parkinsons Preferred Pharmacy: [facility] Insurance: [facility], [facility] Prescription Benefit: yes LNOK: Lefty Lowe, ; Toyin Thomas, dtr Living Arrangements: Pt lives with in a two story home with 1 step to enter. Pt reports she is I in ADL's and denies concerns at home. Transportation: Pt transports her to medical appts. Pt states she can drive short distances but her does not allow her. DME:polar care, tub bench, FWW, high rise toilet HHC/SNF: Pt denies hx of Pt dtr and are inquiring about the inpatient rehab unit at [facility] for pt post hospitalization. Pt states she is not sure if she wants this yet. Pt has some food stuck in her throat, notified pt nurse. Pt asks to come back for her decision. Pt has outpt therapy set up at [facility] for tomorrow. Pt states no further concerns/needs. CM to follow. Advised pt to ask CM if any further question/concerns/needs arise, voices understanding. Pt Goal: TBD Plan: Home with outpt therapy already set up vs Inpatient Rehab unit
[2023-04-28 15:03] VITALS: BP 100/52; PULSE 65; RESP 18; TEMP 36.6; O2SAT 93
--- NOTE | 2023-04-28 15:23 | CASEMGMT ---
Met with patient to complete HUNT form. HUNT form explained to patient who voiced understanding and signed form. Original form placed in pt?s chart and copy provided to?patient. Stacey Lassiter, Discharge Planning Asst.
== END 2023-04-28 18:46 ==
LOC: SDC 04-28 12:56 → MS3 04-28 12:56
PROVIDERS: Admitting Provider Orthopaedic Surgery; PCP Internal Medicine; Referring Provider Orthopaedic Surgery; Visit Provider Orthopaedic Surgery
PROC: 0SRD0JZ Replacement of Left Knee Joint with Synthetic Substitute, Open Approach (ICD-10-PCS; CPT 27447; principal; 2023-04-27 07:00)
DX: M17.12 Unilateral primary osteoarthritis, left knee (principal); I10 Essential (primary) hypertension; E78.00 Pure hypercholesterolemia, unspecified; E07.9 Disorder of thyroid, unspecified; Z86.718 Personal history of other venous thrombosis and embolism; Z87.891 Personal history of nicotine dependence; Z79.899 Other long term (current) drug therapy; Z79.890 Hormone replacement therapy; K21.9 Gastro-esophageal reflux disease without esophagitis; G20.A1 Parkinson's disease without dyskinesia, without mention of fluctuations
CPT/HCPCS: 27447; S2900; 01402; 64447; 96361; 96365; 96366 ×2; 36415; 73560; 80048; 82962; 85027; 88305; 88311; 93005; 94668; 97110; 97116; 97162; 97166; 97530; 97535; 99221; J7120; G0378; J2405; J3475

== ENCOUNTER 2023-04-28 18:50 | Inpatient (IN) | payer MEDICARE, OTHER, SELFPAY ==
[2023-04-28 19:18] VITALS: BMI 31.8
--- NOTE | 2023-04-28 20:23 | HP.PCM_ITS ---
[facility] - General General Date of Admission: 04/28/23 Date of Service: 04/29/23 Chief Complaint: Here for 3 hours daily rehabilitation. HPI Narrative SILVIANO WU, is a 82 Female who presents with followin04/27/2023 Dr. Estrella performed left total knee replacement. 04/28/2023 Admit to for 3 hours daily rehabilitation, strengthening, prior to discharge home with . [facility] Medical History (Updated 04/28/23 @ 20:[address] Korey Wallace MD) Alcohol use Arthritis Chronic cough DVT (deep venous thrombosis) Former smoker Gastric reflux History of edema History of Holter monitoring History of pain when walking History of steroid therapy History of stress test Hypertension Kidney stone Parkinson's disease Post-menopausal Thyroid disease Wears glasses Wears partial dentures Home Medications carbidopa 25 mg-levodopa 100 mg tablet 1.5 tab PO 4X/DAY Parkinson 11/15/19 [History Last Taken 04/28/23] omeprazole 20 mg capsule,delayed release 20 mg PO DAILY GERD 11/15/19 [History Last Taken 04/28/23] paroxetine HCl 20 mg tablet 30 mg PO DAILY Depression 11/15/19 [History Last Taken 04/28/23] amlodipine 2.5 mg tablet 2.5 mg PO DAILY Blood Pressure 04/06/23 [History Last Taken 04/28/23] atorvastatin 40 mg tablet 40 mg PO QHS Cholesterol 04/06/23 [History Last Taken 04/27/23] hydrochlorothiazide 12.5 mg capsule 12.5 mg PO DAILY Blood Pressure 04/06/23 [History Last Taken 04/28/23] levothyroxine 50 mcg tablet 50 mcg PO DAILY Thyroid 04/06/23 [History Last Taken 04/28/23] meloxicam 15 mg tablet 15 mg PO DAILY Arthritis 04/06/23 [History Last Taken 04/26/23] potassium chloride 10 mEq tablet,extended release (Klor-Con) 10 meq PO DAILY supplement 04/06/23 [History Last Taken 04/28/23] aspirin 81 mg tablet,delayed release (Adult Low Dose Aspirin) 81 mg PO BID DVT Proph 04/28/23 [History Last Taken 04/28/23] Allergy/AdvReac Type Severity Reaction Status Date / Time No Known Allergies Allergy Verified 04/27/23 06:00 Surgical History (Updated 04/28/23 @ 20:42 by Kassidy Mcclain) History of carpal tunnel surgery of right wrist Hx of bilateral cataract extraction Hx of tubal ligation Status post left knee replacement Social History (Updated 04/28/23 @ 20:[address] Korey Wallace MD) household members: spouse Smoking Status: Former smoker alcohol intake: current details: Social. substance use type: does not use ROS Constitutional Constitutional: Denies chills, fever(s) or weight gain ENT HEENT: Denies headache(s), nasal congestion or nasal discharge Cardiovascular Cardiovascular: Denies chest pain or palpitations Respiratory/Chest Respiratory/Chest: Denies cough, excessive phlegm production or shortness of breath with exertion Gastrointestinal Gastrointestinal: Denies abdominal pain, nausea or vomiting Genitourinary Genitourinary: Denies dysuria Musculoskeletal Musculoskeletal: Denies joint pain or joint swelling Integumentary Integumentary: Denies rash or wounds Neurologic Neurologic: Denies focal weakness, numbness or tingling Psychiatric Psychiatric: Denies anxiety, auditory hallucinations, depression, homicidal ideation or suicidal ideation Vital Signs Vital Signs Vital Signs: Weight Weight: 81.7 kg Body Mass Index (BMI) 31.8 Indicators for Scoring Admitted with or Primary Diagnosis of CVA/Stroke: No Hx of CVA/Stroke: No Modified Anjelica Score MRS Score at time of Evaluation: 4-Moderate/severe disability Physical Exam Const alert General Appearance: cooperative HEENT normocephalic Eyes PERRL and EOMs intact bilaterally Neck supple, no JVD and no carotid bruits Resp normal respiratory effort, normal air movement and clear to auscultation bilaterally Cardio regular rate and regular rhythm GI normal to inspection, nondistended, normoactive bowel sounds, non-tender and non-distended Extremity normal capillary refill General Extremity: Negative for edema Skin no rashes or lesions noted General Skin Exam: no breakdown Psych affect normal Appearance: appropriate Assessment & Plan Assessment/Plan (1) Debility: (2) Osteoarthritis of left knee: (3) Status post total left knee replacement: (4) Hypertension: (5) Parkinson's disease: (6) Hypothyroidism: (7) GERD (gastroesophageal reflux disease): (8) Depression: (9) Hypokalemia: PLAN: Plan 82 year old female with below past medical history underwent left total knee replacement 04/28/[address] Estrella, admitted to for 3 hours daily rehabiliation, strengthening, prior to discharge home with . * Debility - PT/OT/ST. * Pain - Tylenol 1000mg q8, Tramadol 50mg q6 prn pain (1-5), Oxycodone 2.5mg q4 prn pain (6-10). * Bowel - senna/colace 2 tablets bid, Magnesium citrate 300ml po daily prn. * DVT prophylaxis - Aspirin 81mg bid thru 05/28/2023. * Hypertension - Amlodipine 2.5mg daily, Blood pressure low, hold HCTZ 12.5mg daily. * Parkinson Disease - Sinemet 25/100mg 1.5 tablets 4x/day. * Hypothyroidism - Levothyroxine 50mcg daily. * Osteoarthritis - Meloxicam 15mg daily. * GERD - Pantoprazole 20mg daily. * Depression - Paroxetine 30mg daily. * Hypokalemia - KCL 10meq daily.
[2023-04-28 20:40] VITALS: BP 85/40; PULSE 76; RESP 16; TEMP 36.6; O2SAT 95
[2023-04-28 20:55] VITALS: BP 106/45; PULSE 74; RESP 16; TEMP 36.6; O2SAT 94
[2023-04-28 22:00] VITALS: PULSE 77; RESP 15; O2SAT 93
[2023-04-28] MEDS: Senna/Docusate Sodium 1 Tablet 2 TABLET PO (22:11)
[2023-04-28] MEDS: Carbidopa/Levodopa 25/100 Tablet PO (22:11)
[2023-04-28] MEDS: Aspirin E.C. 81 MG Tablet PO (22:12)
[2023-04-28] MEDS: Acetaminophen 500 MG Tablet 1000 MG PO (22:12)
[2023-04-28] MEDS: Atorvastatin Calcium 40 MG Tablet PO (22:12)
[2023-04-29] MEDS: 0.9% Saline Lock 10 ML Syringe IV (03:31)
[2023-04-29] MEDS: Acetaminophen 500 MG Tablet 1000 MG PO ×3 (05:00→21:10)
[2023-04-29] MEDS: Levothyroxine 50 MCG Tablet PO (05:00)
[2023-04-29 07:28] VITALS: BP 124/55; PULSE 84; RESP 16; TEMP 37.1; O2SAT 95
[2023-04-29 08:26] VITALS: O2SAT 93
[2023-04-29] MEDS: Magnesium Hydroxide 30 ML UDC PO (10:03)
[2023-04-29] MEDS: Pantoprazole Sodium 20 MG Tablet PO (10:07)
[2023-04-29] MEDS: Paroxetine 20 MG Tablet 30 MG PO (10:07)
[2023-04-29] MEDS: amLODIPine 2.5 MG Tablet PO (10:08)
[2023-04-29] MEDS: Meloxicam 15 MG Tablet PO (10:08)
[2023-04-29] MEDS: Senna/Docusate Sodium 1 Tablet 2 TABLET PO (10:09)
[2023-04-29] MEDS: Carbidopa/Levodopa 25/100 Tablet PO ×4 (10:09→21:10)
[2023-04-29] MEDS: Potassium Chloride Oral Tablet 10 MEQ PO (10:09)
[2023-04-29] MEDS: Aspirin E.C. 81 MG Tablet PO ×2 (10:09→21:10)
[2023-04-29] MEDS: traMADol 50 MG Tablet PO (16:01)
--- NOTE | 2023-04-29 19:07 | REHABEVAL_ITS ---
Admission Information Primary Diagnosis:: Status post left total knee replacement. Status Changes from Prescreening?: No changes Identified Actual Problem List:: Pain, ALteration in Cmfrt, Bowel, Constipation, Alteration in Sleep, Mobility Impaired, Self Care Deficit, Ineffective Communication, Know.Dfct/Disease Process and Alteration-Leisure Activ. Potential Problem List:: DVT, Bleeding, Infection, UTI, Aspiration, Falls, Skin Integrity and Depression Risk of Complications DVT: - (Aspirin.) Bleeding: Monitor Lab Values, Nursing to Teach Precautions for anti-coagulation therapy., Wound, if applicable, to be assessed every shift. and Stroke patients assessed for lethargy or change in status. Infection: Clinical Staff to Monitor for S/S of infection: and S/S of infection include fever, redness, warmth, etc. Urinary Tract Infection: Monitor for frequency, burning, discomfort, or incontinence. and Nursing will obtain urine sample for urinalysis and C&S when ordered. Aspiration: Clinical staff will monitor for coughing, drooling, congestion., Speech will evaluate swallowing and dsyphasia. and Nursing will monitor patient swallowing during meals. Falls: Patient will be evaluated for Fall Precautions and Patient will be placed on Fall Precautions as indicated per protocol. Skin Breakdown: Nursing will assess skin daily using assessment tool. and Nursing will place on Skin Breakdown Precautions as indicated. Pain: Clinical staff will assess patient's pain level per protocol., Medications will be given, if needed, and the pain level reassessed. and Other methods: Massage, distraction, decrease stimulus, etc. used PRN. Plan of Care Patient requires physician specializing in physical medicine and rehab oversight to provide close medical supervision of rehab issues including: Pain Management, Sleep Problems, Bowel and Bladder, Medical and co-morbidity Management, DVT prophylaxis, Rehabilitation Leadership and Coordination of treatment team Patient needs Physical Therapy: For a minimum of 1 hour and At least 5 out of 7 days Patient needs Physical Therapy to improve:: Mobility, Strengthening, Transfers, Stretching, ROM, Endurance, Stairs, Gait and Balance Patient needs Occupational Therapy: For a minimum of 1 hour and At least 5 out of 7 days Patient needs Occupational Therapy to improve ADL's incl.: Eating, Grooming, Bathing, Dressing, Toileting, Toilet transfers, Community Reintegration, Higher functioning activities, Household tasks, Adaptive Equipment, Splinting and Other activities as determined Patient requires speech therapy: For a minimum of 1 hour and At least 5 out of 7 days Patient requires speech therapy for: Swallowing, Cognition, Language Skills and Compensatory Strategies Patient requires 24/ Rehabilitation Nursing for: Pain Issues, Identifying and preventing risk factors, Monitoring and reporting current medical conditions, Assisting with ambulation, transfer, and all ADL's, Teaching patients about disease process and medications, Family teaching, Providing safe environment, Bowel and Bladder Issues, Skin integrity and Medication Management Patient needs Wastewater Plant Civil Engineer/ Case Management for: Discharge Planning, Arranging Home Equipment or Services and Family Interventions Patient needs Dietary and Nutrition Services for: Adequate Nutrition, Nutritional Supplements and Nutritional Education Goals Patient will remain: free from falls and or injury at time of discharge. Patient will perform bed mobility at: Standby Assist. Patient will complete transfers from bed to chair at: MOD I level of assist. Patient will ambulate: - (150 feet SBA) Patient will complete upper body dressing at: MOD I level of assist. Patient will complete lower body dressing at: MOD I level of assist. Patient will complete toileting at: MOD I level of assist. Patient will perform bathing at: - (CGA) Patient will achieve: 12 stairs and - (min A) Patient's skin will: remain intact and free from infection. Patient will receive: adequate nutrition. Discharge Planning Pt Prognosis for Sig. Practical Improv. w/in Reasonable Time: Good Estimated Length of stay (days): 14 Anticipated D/C Destination: Home with Home Health Was Preadmission Assessment Accurate?: Yes
[2023-04-29 20:00] VITALS: BP 130/55; PULSE 95; RESP 17; TEMP 36.7; O2SAT 98
[2023-04-29] MEDS: Atorvastatin Calcium 40 MG Tablet PO (21:10)
[2023-04-30] MEDS: Levothyroxine 50 MCG Tablet PO (05:04)
[2023-04-30] MEDS: Acetaminophen 500 MG Tablet 1000 MG PO ×3 (05:05→21:00)
[2023-04-30] MEDS: oxyCODONE 5 MG Tablet 2.5 MG PO (05:05)
[2023-04-30 07:14] VITALS: BP 116/67; PULSE 75; RESP 18; TEMP 37.1; O2SAT 93
--- NOTE | 2023-04-30 08:08 | CASEMGMT ---
Social Work IDT met with patient and for Team meeting. Discussed patient's progress in PT/OT/ST/SN. Educated to Medicare benefit. SW to update once approval of days are given. Pt's goal is to return home with closer to PLOF. SW to coordinate DC needs. Will ReTeam weekly. ARNEL SainiW
--- NOTE | 2023-04-30 09:00 | ST.MBS ---
Modified Barium Swallow Patient Information Study Date: 04/30/23 Study Time: 09:00 Direct Billable Minutes: 90 Total Minutes procedure & reportin Diagnosis: Parkoinson's Disease, Dysphagia Referring Physician: Korey Wallace Chi Reason for Referral: Objective assessment of swallow function under fluoroscopy recommended following Clinical Bedside Swallow Evaluation d/t suspected pharyngoesophageal phase dysphagia. Pt reports difficulty swallowing, characterized by sensation of food ?getting stuck? in her throat and not going down. Pt indicates location of food retention to be near the clavicular notch. Pt is able to talk and breathe while retention occurs ? suspect esophageal retention. Pt additionally reports odynophagia with deglutition, especially w/ larger volume bites/sips. Medical History: Alcohol use, Arthritis, Chronic cough, DVT (deep venous thrombosis), Former smoker, Gastric reflux, History of edema, History of Holter monitoring, History of pain when walking, History of steroid therapy, History of stress test, Hypertension, Kidney stone, Parkinson's disease, Post-menopausal, Thyroid disease, Wears glasses, Wears partial dentures. This patient underwent a left total knee replacement 04/28/[address] Estrella. Current Diet Ordered: regular textures/thin liquids Dentition: Natural Teeth and Partials (has partials for missing molars, but not currently wearing them) Respiratory Status: Oxygenating on Room Air Penetration-Aspiration Scale Penetration-Aspiration Scale: OBJECTIVE ASSESSMENT OF SWALLOW FUNCTION (QUANTITATIVE ? PER TRIAL): PENETRATION / ASPIRATION SCALE (MENCHACA): 1 = does not enter airway 2 = enters airway/above vocal folds/ejected 3 = enters airway/above vocal folds/not ejected 4 = enters airway/contacts vocal folds/ejected 5 = enters airway/contacts vocal folds/not ejected 6 = enters airway/below vocal folds/ejected 7 = enters airway/below vocal folds/not ejected despite effort 8 = enters airway/below vocal folds/no effort VIDEOFLOROSCOPIC SCALE SCORE (MENCHACA): Grade I = aspiration of material that has penetrated into the laryngeal vestibule, intact cough reflex Grade II = aspiration < 10 % of the bolus, intact cough reflex Grade III = aspiration of < 10 % of the bolus, reduced cough reflex or aspiration of > 10 % of the bolus, intact cough reflex Grade IV = aspiration of > 10 % of the bolus, reduced cough reflex Penetration-Aspiration Scale Score Thin Liquid via teaspoon: Result: 2= enter airway/above vocal folds/ejected Thin Liquid via teaspoon Trial 2: Result: 2= enter airway/above vocal folds/ejected Thin Liquid via small single sip: cup: Result: 2= enter airway/above vocal folds/ejected Thin Liquid via large single sip: cup: Result: 2= enter airway/above vocal folds/ejected Thin Liquid via single sip: straw: Result: 1= does not enter airway Pudding: Result: 1= does not enter airway Cookie: Result: 1= does not enter airway Oral Phase Labial Seal: Escape progressing to mid-chin (w/ liquid presented via tsp) Tongue Control During Bolus Hold: Escape to lateral buccal cavity/floor of mouth Bolus Preparation/Mastication: Slow prolonged chewing/mashing with complete recollection Bolus Transport/Lingual Motion: Repetitive/disorganized tongue motion Oral Residue: Residue collection on oral structures (utilizes piecemeal deglutition pattern ) Pharyngeal Phase Initiation of Pharyngeal Swallow: Bolus head at posterior laryngeal surgace of epiglottis Soft Palate Elevation: No bolus between soft palate and pharyngeal wall Laryngeal Elevation: Partial superior movement thyroid cart/partial apprx aryt-epig petiole Anterior Hyoid Excursion: Complete anterior movement Epiglottic Movement: Complete inversion Laryngeal Vestibule Closure at Height of Swallow: Complete; no air/contrast in laryngeal vestibule Pharyngeal Stripping Wave: Present - diminished Pharyngoesophageal Segment Opening: Parital distension and partial duration; parital obstruction of flow Tongue Base Retraction: Narrow column of contrast between tongue base & post. pharyngeal wall Pharyngeal Residue: Trace residue within or on pharyngeal structures Esophageal Phase Esophageal Clearance: Esophageal retention w/ retrograde flow below pharyngoesophageal seg. Diagnosis/Impression Diagnosis: oropharyngeal dysphagia (R13.12), pharyngoesophageal dysphagia (R13.14) Impression: The oral phase is marked by: anterior bolus loss from the R labial commissure w/ contrast extending to mid chin (w/ bolus presented via teaspoon only) disorganized oral bolus control characterized by loss of bolus to the buccal cavities/floor of mouth prior to recollection for A-P bolus transportation repetitive pumping of the tongue w/ rocking-rolling lingual festination prolonged mastication time piecemeal deglutition pattern The pharyngeal phase is marked by: swallow onset initiated when the leading edge of thin liquid boluses reaches the posterior laryngeal surface of the epiglottis, allowing laryngeal vestibule penetration to occur before/during the swallow complete laryngeal vestibule closure achieved at the height of the swallow w/ complete ejection of all penetrated thin liquid contrast reduced tongue base retraction and reduced pharyngeal wall contraction, resulting in trace post-prandial residue retention along the tongue base and tip of uvula reduced PES distention w/ cricopharyngeal hypertrophy noted, which narrowed the opening for pharyngoesophageal transit, but did not prevent clearance (of note, the patient indicates tightness when swallowing, as if it is narrow/difficult to clear things) The esophageal phase is marked by: impaired esophageal motility w/ significant retention and retrograde flow below the UES - GI REFERRAL RECOMMENDED Recommendations Diet: Regular Textures and Thin Liquids Compensatory Strategies: Small Bites, Small Sips, Slow Rate, Alternate bites/solids and sips/liquids, Sitting upright and Remain sitting upright for 30 minutes after PO intake Recommend Repeat Modified Barium Swallow: Yes (pending changes in swallow function d/t progression of Parkinson's Disease) Need for Skilled Speech Therapy Services: Yes Comment: This patient requires ongoing skilled dysphagia intervention to address deficits identified and initiate an oropharyngeal strengthening exercise program to maintian current swallow function and prevent further decline in function d/t the progressive nature of Parkinson's Disease. Recommended Referrals: GI Consult (cricopharyngeal hypertrophy, impaired esophageal motility w/ retention/discomfort) Education Completed: 1. Described result of evaluation. and 2. Pt understands evaluation & agrees with goals and treatment plan. Status Active ST Patient: Active Contact Information [facility] Speech Therapy:: Brenda Wayne M.A. [facility]-ADMINISTRATIVE ASSISTANT COORDINATOR Speech-Language Pathologist [facility] [address] [place], [place] [id number] [email or web address]
[2023-04-30] MEDS: Meloxicam 15 MG Tablet PO (09:30)
[2023-04-30] MEDS: Paroxetine 20 MG Tablet 30 MG PO (09:30)
[2023-04-30] MEDS: Potassium Chloride Oral Tablet 10 MEQ PO (09:30)
[2023-04-30] MEDS: Pantoprazole Sodium 20 MG Tablet PO (09:30)
[2023-04-30] MEDS: amLODIPine 2.5 MG Tablet PO (09:30)
[2023-04-30] MEDS: Carbidopa/Levodopa 25/100 Tablet PO ×4 (09:30→21:00)
[2023-04-30] MEDS: Aspirin E.C. 81 MG Tablet PO ×2 (11:03→21:00)
[2023-04-30 20:00] VITALS: BP 127/61; PULSE 88; RESP 16; TEMP 37; O2SAT 96
[2023-04-30] MEDS: Atorvastatin Calcium 40 MG Tablet PO (20:55)
[2023-05-01] MEDS: Acetaminophen 500 MG Tablet 1000 MG PO ×3 (06:02→21:08)
[2023-05-01] MEDS: Levothyroxine 50 MCG Tablet PO (06:02)
[2023-05-01] MEDS: 0.9% Saline Lock 10 ML Syringe IV ×2 (06:03→08:52)
[2023-05-01 06:42] VITALS: O2SAT 94
[2023-05-01 07:30] VITALS: BP 150/80; PULSE 77; RESP 17; TEMP 36.6; O2SAT 96
[2023-05-01] MEDS: Aspirin E.C. 81 MG Tablet PO ×2 (08:46→21:09)
[2023-05-01] MEDS: Potassium Chloride Oral Tablet 10 MEQ PO (08:46)
[2023-05-01] MEDS: Meloxicam 15 MG Tablet PO (08:46)
[2023-05-01] MEDS: Pantoprazole Sodium 20 MG Tablet PO (08:47)
[2023-05-01] MEDS: Paroxetine 20 MG Tablet 30 MG PO (08:47)
[2023-05-01] MEDS: amLODIPine 2.5 MG Tablet PO (08:47)
[2023-05-01] MEDS: Carbidopa/Levodopa 25/100 Tablet PO ×4 (09:00→21:10)
--- NOTE | 2023-05-01 10:42 | PCM.PROGNOTE ---
Subjective Subjective Afebrile VSS Maintaining appropriate oxygen saturation on RA Oral intake is good Discussed with nursing - no problems that need addressed Reviewed the PT/OT/ST notes - ST reports that she is very drowsy today. Per night nursing she slept well last night. PMH per ST is significant for alcohol use, chronic cough. She c/o dysphagia while on the acute side of the hospital and that is why she is seeing ST. Medication list reviewed. She has only taken 1 tramadol 50 mg and 1 oxycodone 2.5 mg since admission to rehab. All lab this admission was personally reviewed. The hemoglobin dropped from 13.2 preoperative to 9.1 postop. GFR is 48 at last check which is consistent with stage IIIa chronic renal failure. Recent TSH is within normal limits. The last vitamin D level was in 2014. She is not on a calcium or vitamin D supplement. She is currently taking 30 mg of Paxil daily and she has stage IIIa chronic renal failure with a creatinine clearance estimated at 31 currently. With a creatinine clearance of 30 to 60 mL/min the dose of Paxil should be decreased by 25 to 50%. MBS showed impaired esophageal motility with significant retention and retrograde flow below the upper esophageal sphincter. Diet recommended was regular textures and thin liquids with small bites, small sips, slow rate and alternating bites/solids and sips/liquids. Salma denies lightheadedness, vertigo, CP, SOB at rest, SOB with exertion, nausea, vomiting, abd pain, diarrhea, dysuria and calf pain. 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 She is sleeping well at night. She admits to having problems with memory. She tells me that she follows with a neurologist in [facility] now and it is a woman. She cannot recall the name at this time. She is aware of the results of the MBS and that she will need to follow up with a scouring train operator. She tells me she has some soreness when bearing weight but, it is not bad and she has not been taking pain medication for this. Objective Data Objective Data Vital Signs: Vital Signs Temp Pulse Resp BP Pulse Ox O2 Del Method 98.6 F 88 16 127/61 H 94 Room Air 04/30/23 20:00 04/30/23 20:00 04/30/23 20:00 04/30/23 20:00 05/01/23 06:42 05/01/23 06:42 Oxygen Delivery Method Room Air Weight: 180 lb 1.883 oz Body Mass Index (BMI) 31.8 Intake & Output: Intake and Output for Last 24 Hours 04/29/23 04/30/23 05/01/23 23:59 23:59 23:59 Intake Total 480 / 480 120 / 120 Output Total 600 / 600 Balance -120 / -120 120 / 120 Physical Exam Const alert, oriented x3 and no apparent distress Constitutional Narrative: pleasant and talkative. Tells me that she is dyslexic. She is not feeling depressed. She does get anxious at times and she worries a lot. Has trouble going to sleep at night and sometimes she takes a nap during the day. General Appearance: cooperative and well developed HEENT moist oral mucous membranes HEENT Narrative: No thrush Resp normal respiratory effort Resp Narrative: Diminished BS's in the left base. No recent CXR and she smoked in the past but, she quit 40 years ago. No wheezing. R base is clear. Not tachypneic. No wheezes. No conversational dyspnea. Cardio regular rate, regular rhythm, S1 normal heart sound, S2 normal heart sound, no murmurs, no rub and no gallops Cardio Narrative: No ectopy GI normal to inspection, nondistended, normoactive bowel sounds, soft to palpation and non-tender GI Narrative: No guarding with palpation Extremity no calf tenderness General Extremity: edema right (ankle to just above the ankle. ) Skin General Skin Exam: no breakdown Rashes: no rashes Neuro CN's II-XII intact bilaterally and no focal motor deficits Psych cooperative and affect normal Psych Narrative: She is shaking her R leg and speech is a little pressured/excessive at times. Appearance: appropriate Assessment & Plan Assessment/Plan (1) Debility: (2) Osteoarthritis of left knee: (3) Status post total left knee replacement: (4) Hypocalcemia: (5) Parkinson's disease: QUALIFIERS: Dyskinesia presence: unspecified whether dyskinesia Fluctuating manifestations: unspecified whether manifestations fluctuate Qualified Code(s): G20.A1 - Parkinson's disease without dyskinesia, without mention of fluctuations PLAN: Not on any PD medications. (6) Chronic renal failure, stage 3a: (7) Hypertension: QUALIFIERS: Hypertension type: primary hypertension Qualified Code(s): I10 - Essential (primary) hypertension (8) Depression: (9) GERD (gastroesophageal reflux disease): (10) Hypothyroidism: (11) Acute blood loss anemia (ABLA): (12) Eosinophilia: PLAN: May be drug induced? Is this the reason for the chronic cough. She quit smoking 40 years ago. Could she have esoinophilic esophagitis? (13) Chronic cough: PLAN: Etiology? Due to esophageal retention and reflux? Not on a ARB or an SUSIE. PLAN: Plan 1. Continue therapy 2. Check a CMP, CBC with differential, magnesium and phosphorus in the a.m. 3. Discussed decreasing the Paxil to 40 mg BID with the patient. Maximum recommended dose of Paxil in this age group is 50 mg daily and she has chronic renal failure stage IIIa and it is recommended to decrease the dose by 25 to 50% with this degree of chronic renal failure. 4. Who diagnosed with PD? Has she seen a neurologist? 5. PA and lateral chest x-ray today. 6. Hemoccult stool - She is on Meloxicam and also ASA BID 7. Add MiraLAX once daily for constipation 8. Consult Dr. Swanson for esophageal dysmotility with esophageal retention 9. Add melatonin 3 mg p.o. at bedtime Charges/Coding Visit Charges Inpatient E&M: 61495 Subs Hosp L2
--- NOTE | 2023-05-01 12:20 | RAD_ITS ---
STUDY: X-RAY CHEST REASON FOR EXAM: Female, 82 years old. Cough. TECHNIQUE: Frontal and lateral views of the chest. COMPARISON: None. FINDINGS: Cardiomegaly with aortic tortuosity and calcification. Prominent central pulmonary arteries. Mild hyperinflation. Linear atelectasis at the left base. Thoracic osteopenia with moderate spondylosis and increased kyphosis. No abnormality of the visualized soft tissue structures of the upper abdomen. RAD/Chest PA and Lateral IMPRESSION: No active or acute cardiopulmonary disease Electronically Signed: Freddy Savage MD at 13:04 EDT ,
[2023-05-01] MEDS: Atorvastatin Calcium 40 MG Tablet PO (21:09)
[2023-05-01] MEDS: MELATONIN 3 MG TABLET PO (21:10)
[2023-05-01] MEDS: Pantoprazole Sodium 40 MG Tablet PO (21:10)
[2023-05-01] MEDS: Senna/Docusate Sodium 1 Tablet 2 TABLET PO (21:10)
[2023-05-01 21:30] VITALS: BP 119/54; PULSE 77; RESP 16; TEMP 37.2; O2SAT 96
[2023-05-02] MEDS: Levothyroxine 50 MCG Tablet PO (06:26)
[2023-05-02] MEDS: Acetaminophen 500 MG Tablet 1000 MG PO ×3 (06:26→21:15)
[2023-05-02 06:29] LABS: Absolute Lymphocyte Count 1.44 X10^3/uL (0.83-4.51); Absolute Neutrophil Count 3.9 X10^3/uL (2.0-7.7); Basophil# 0.02 X10^3/uL; Basophil% 0.3 % (0-1); Eosinophil# 0.35 X10^3/uL; Eosinophils% 5.6 % (0-5); Hematocrit 26.4 % (37-47); Hemoglobin 8.3 g/dL (12.0-15.0); Lymphocyte # 1.44 X10^3/ul (0.83-4.51); Lymphocyte % 23.2 % (19-41); Mean Corp Hgb Conc 31.4 g/dL (32-36); Mean Corpuscular Hgb 31.1 pg (27.0-32.0); Mean Corpuscular Volume 98.9 fL (81-99); Mean Platelet Vol. 9.8 fl (6.2-12.0); Monocyte# 0.51 X10^3/uL; Monocyte% 8.2 % (0-10); NRBC Flagged by Analyzer 0 % (0-5); Neutrophil # 3.88 X10^3/uL (2.7-7.7); Neutrophil % 62.4 % (47-70); Platelet Count 249 K/mm3 (150-450); RBC Distribution Width CV 13.3 % (11.6-14.6); RBC Distribution Width SD 47.8 fl (35.1-43.9); Red Blood Count 2.67 M/mm3 (4.2-5.4); White Blood Count 6.2 K/mm3 (4.4-11.0)
[2023-05-02] MEDS: 0.9% Saline Lock 10 ML Syringe IV ×2 (06:31→13:57)
[2023-05-02 06:59] LABS: ALB/GLOB Ratio 0.6 RATIO (0.9-2.4); AST(SGOT) 17 U/L (15-37); Alanine Aminotransfer ALT/SGPT 7 U/L (13-56); Albumin, Serum 2.2 g/dL (3.2-5.0); Alkaline Phosphatase 75 U/L (45-117); Anion Gap 6 (5-15); BUN 22 mg/dL (7-18); BUN/Creat Ratio 23.7 RATIO (10-20); Calcium,Total 8.1 mg/dL (8.5-10.1); Chloride 110 mmol/L (98-107); Creatinine, Serum 0.93 mg/dL (0.55-1.02); EST Glomerular Filtration Rate 61 mL/min (>60); Est Glom Filt Rate - Afr Amer 74 mL/min (>60); Estimated Creatinine Clearance 38.58 ml/min; Globulin 3.4 g/dL (2.2-4.2); Glucose 96 mg/dL (74-106); Magnesium 2.1 mg/dL (1.6-2.6); Phosphorus 3.3 mg/dL (2.5-4.9); Potassium 3.9 mmol/L (3.5-5.1); Protein, Total 5.6 g/dL (6.4-8.2); Sodium Level 142 mmol/L (136-145)
[2023-05-02 07:48] VITALS: O2SAT 95
[2023-05-02] MEDS: Pantoprazole Sodium 40 MG Tablet PO ×2 (08:06→21:14)
[2023-05-02] MEDS: amLODIPine 2.5 MG Tablet PO (08:06)
[2023-05-02] MEDS: Meloxicam 15 MG Tablet PO (08:06)
[2023-05-02] MEDS: Aspirin E.C. 81 MG Tablet PO ×2 (08:06→21:15)
[2023-05-02] MEDS: Potassium Chloride Oral Tablet 10 MEQ PO (08:06)
[2023-05-02] MEDS: Senna/Docusate Sodium 1 Tablet 2 TABLET PO ×2 (08:06→21:14)
[2023-05-02] MEDS: Paroxetine 20 MG Tablet PO (08:07)
[2023-05-02 08:43] VITALS: BP 138/68; PULSE 74; RESP 16; TEMP 36.8; O2SAT 93
[2023-05-02] MEDS: Carbidopa/Levodopa 25/100 Tablet PO ×4 (09:16→21:13)
[2023-05-02] MEDS: Polyethylene Glycol 3350 17 GM PACKET PO (09:16)
[2023-05-02] MEDS: Magnesium Hydroxide 30 ML UDC PO (16:33)
[2023-05-02 20:08] VITALS: BP 121/53; PULSE 82; RESP 18; TEMP 36.3; O2SAT 94
[2023-05-02] MEDS: Atorvastatin Calcium 40 MG Tablet PO (21:14)
[2023-05-02] MEDS: MELATONIN 3 MG TABLET PO (21:14)
[2023-05-03] MEDS: Acetaminophen 500 MG Tablet 1000 MG PO ×3 (05:20→21:23)
[2023-05-03] MEDS: Levothyroxine 50 MCG Tablet PO (05:20)
[2023-05-03] MEDS: Potassium Chloride Oral Tablet 10 MEQ PO (07:59)
[2023-05-03] MEDS: amLODIPine 2.5 MG Tablet PO (07:59)
[2023-05-03] MEDS: Meloxicam 15 MG Tablet PO (07:59)
[2023-05-03] MEDS: Aspirin E.C. 81 MG Tablet PO ×2 (07:59→21:23)
[2023-05-03] MEDS: Pantoprazole Sodium 40 MG Tablet PO ×2 (07:59→21:23)
[2023-05-03] MEDS: Senna/Docusate Sodium 1 Tablet 2 TABLET PO ×2 (07:59→21:23)
[2023-05-03] MEDS: Paroxetine 20 MG Tablet PO (07:59)
[2023-05-03] MEDS: Polyethylene Glycol 3350 17 GM PACKET PO (08:00)
[2023-05-03 09:53] VITALS: BP 113/66; PULSE 81; RESP 16; TEMP 36.7; O2SAT 94
[2023-05-03] MEDS: Carbidopa/Levodopa 25/100 Tablet PO ×4 (10:38→21:23)
--- NOTE | 2023-05-03 12:08 | CON.PCM.GI_ITS ---
HPI Consult Data Date of Consult: 05/03/23 HPI Narrative Reason for Consultation: Dysphagia HPI Narrative: SILVIANO WU, is a 82 F who presents to rehab for real with patient of left knee replacement. She has past medical history of CKD, Parkinson's disease use hypothyroidism, gastroesophageal reflux disease who has been having progressive solid food dysphagia. Pt reports difficulty swallowing, characterized by sensation of food ?getting stuck? in her throat and not going down. Pt indicates location of food retention to be near the clavicular notch. Pt is able to talk and breathe while retention occurs ? suspect esophageal retention. Pt additionally reports odynophagia with deglutition. She underwent modified barium swallow and it showed mild stricture at the level of the cricopharyngeus. GI Consult was recommended to assess for abnormality of the cricopharyngeus and to assess for impaired esophageal motility. [facility] Medical History (Updated 05/03/23 @ 12:[address] Solomon Friend, DO) Alcohol use Arthritis Chronic cough Chronic renal failure, stage 3a DVT (deep venous thrombosis) Eosinophilia Former smoker Gastric reflux History of edema History of Holter monitoring History of pain when walking History of steroid therapy History of stress test Hypertension Hypokalemia Kidney stone Parkinson's disease Post-menopausal Thyroid disease Wears glasses Wears partial dentures Home Medications carbidopa 25 mg-levodopa 100 mg tablet 1.5 tab PO 4X/DAY Parkinson 11/15/19 [History Last Taken 04/28/23] omeprazole 20 mg capsule,delayed release 20 mg PO DAILY GERD 11/15/19 [History Last Taken 04/28/23] paroxetine HCl 20 mg tablet 30 mg PO DAILY Depression 11/15/19 [History Last Taken 04/28/23] amlodipine 2.5 mg tablet 2.5 mg PO DAILY Blood Pressure 04/06/23 [History Last Taken 04/28/23] atorvastatin 40 mg tablet 40 mg PO QHS Cholesterol 04/06/23 [History Last Taken 04/27/23] hydrochlorothiazide 12.5 mg capsule 12.5 mg PO DAILY Blood Pressure 04/06/23 [History Last Taken 04/28/23] levothyroxine 50 mcg tablet 50 mcg PO DAILY Thyroid 04/06/23 [History Last Taken 04/28/23] meloxicam 15 mg tablet 15 mg PO DAILY Arthritis 04/06/23 [History Last Taken 04/26/23] potassium chloride 10 mEq tablet,extended release (Klor-Con) 10 meq PO DAILY supplement 04/06/23 [History Last Taken 04/28/23] aspirin 81 mg tablet,delayed release (Adult Low Dose Aspirin) 81 mg PO BID DVT Proph 04/28/23 [History Last Taken 04/28/23] Allergy/AdvReac Type Severity Reaction Status Date / Time No Known Allergies Allergy Verified 04/27/23 06:00 Surgical History (Updated 04/28/23 @ 20:42 by Kassidy Mcclain) History of carpal tunnel surgery of right wrist Hx of bilateral cataract extraction Hx of tubal ligation Status post left knee replacement Social History (Updated 04/28/23 @ 20:[address] Korey Wallace MD) household members: spouse Smoking Status: Former smoker alcohol intake: current details: Social. substance use type: does not use ROS Constitutional Constitutional: Denies chills, fever(s) or weight gain ENT HEENT: Denies headache(s), nasal congestion or nasal discharge Cardiovascular Cardiovascular: Denies chest pain or palpitations Respiratory/Chest Respiratory/Chest: Denies cough, excessive phlegm production or shortness of breath with exertion Gastrointestinal Gastrointestinal: Denies abdominal pain, nausea or vomiting Genitourinary Genitourinary: Denies dysuria Musculoskeletal Musculoskeletal: Denies joint pain or joint swelling Integumentary Integumentary: Denies rash or wounds Neurologic Neurologic: Denies focal weakness, numbness or tingling Psychiatric Psychiatric: Denies anxiety, auditory hallucinations, depression, homicidal ideation or suicidal ideation Physical Exam Const alert General Appearance: cooperative HEENT normocephalic Eyes PERRL and EOMs intact bilaterally Neck supple, no JVD and no carotid bruits Resp normal respiratory effort, normal air movement and clear to auscultation bilaterally Cardio regular rate and regular rhythm GI normal to inspection, nondistended, normoactive bowel sounds, non-tender and non-distended Extremity normal capillary refill General Extremity: Negative for edema Skin no rashes or lesions noted General Skin Exam: no breakdown Psych affect normal Appearance: appropriate Lab / Micro Data 05/02/23 05:27 05/02/23 05:27 Micro: Microbiology 05/02/23 10:00 Stool Stool Occult Blood (TARIK) - Final Occult Blood Positive Assessment & Plan Assessment/Plan (1) Dysphagia: QUALIFIERS: Dysphagia type: oropharyngeal phase Qualified Code(s): R13.12 - Dysphagia, oropharyngeal phase PLAN: Plan She has multiple risk factors for esophageal dysphagia including Parkinson's disease was associated with esophageal dysmotility disorders including an appropriate esophageal motility involving the distal to lower esophageal sphincter, presbyesophagus, achalasia. She is also at risk for eosinophilic esophagitis with history of GERD which can cause GERD induced eosinophilic esophagitis and she does have a peripheral eosinophilia which also increases her risk of eosinophilic esophagitis. She should undergo an upper endoscopy to evaluate upper GI tract. She was explained alternatives, risk, benefits include not withstanding bleeding, infection, sepsis, perforation, need for emergent surgery . She will have an ASA of 3. Charges/Coding Visit Charges Inpatient E&M: 30912 SNF Init L2
--- NOTE | 2023-05-03 12:18 | NURSING ---
Dr Swanson to unit to see pt, made aware of occult positive stool sample.
[2023-05-03 20:16] VITALS: BP 114/62; PULSE 75; RESP 17; TEMP 36.8; O2SAT 95
[2023-05-03] MEDS: MELATONIN 3 MG TABLET PO (21:23)
[2023-05-03] MEDS: Atorvastatin Calcium 40 MG Tablet PO (21:23)
[2023-05-04] MEDS: Levothyroxine 50 MCG Tablet PO (05:44)
[2023-05-04] MEDS: Acetaminophen 500 MG Tablet 1000 MG PO ×3 (05:45→20:43)
[2023-05-04 06:00] VITALS: BMI 32.0
[2023-05-04] MEDS: traMADol 50 MG Tablet PO (06:20)
[2023-05-04 07:54] VITALS: BP 135/76; PULSE 61; RESP 14; TEMP 36.6; O2SAT 95
[2023-05-04] MEDS: Potassium Chloride Oral Tablet 10 MEQ PO (08:02)
[2023-05-04] MEDS: Pantoprazole Sodium 40 MG Tablet PO ×2 (08:03→20:43)
[2023-05-04] MEDS: Senna/Docusate Sodium 1 Tablet 2 TABLET PO ×2 (08:03→20:43)
[2023-05-04] MEDS: Aspirin E.C. 81 MG Tablet PO ×2 (08:03→20:43)
[2023-05-04] MEDS: Paroxetine 20 MG Tablet PO (08:04)
[2023-05-04] MEDS: amLODIPine 2.5 MG Tablet PO (08:04)
[2023-05-04] MEDS: Meloxicam 15 MG Tablet PO (08:06)
[2023-05-04 08:10] LABS: Vitamin D,25 Hydroxy 21.6 ng/mL
[2023-05-04] MEDS: Carbidopa/Levodopa 25/100 Tablet PO ×4 (10:45→20:44)
--- NOTE | 2023-05-04 11:33 | CASEMGMT ---
Social Work SW phoned to inform him of Medicare approval for pt of 11 days, DC 05/09. states pt is anxious to DC sooner but and dtr have seen great improvements and would like pt to remain until 05/09. Pt will have Team meeting on 05/07 and DC plans can be finalized. appreciative. SW will continue to follow for DC planning. Jessica Estrada, UNDERGROUND MINE SUPERINTENDENT [employer]ING [employer]ER
--- NOTE | 2023-05-04 14:45 | PN_ITS ---
Subjective Subjective Afebrile VSS Maintaining appropriate oxygen saturation on RA Oral intake is good Discussed with nursing - she has edema of the LLE that nursing is concerned about. She also had this Thursday when I examined her and I think this is due to recent surgery. She had no calf pain Thursday. Reviewed the PT/OT notes Medication list reviewed. Hemoglobin on Thursday was 8.3, down from 9.1 on 04/28/2023. She is better hy drated than she was on 04/28. Creatinine went from 1.15 on 1016-0.93 on 05/02/2023. She has 5.6% eos on the diff. Calcium is low at 8.1 but when corrected for hypoalbuminemia is within normal limits at 9.22. Calcium and magnesium are within normal limits. LFTs are unremarkable. Vitamin D level is in the end of sufficiency range at 21.6. She is telling me that she has a dry mouth and her tongue is sore. She is also concerned about the swelling in the Left leg. she denies CP, shortness of breath, palpitations, lightheadedness, vertigo, nausea/vomiting/abdominal pain, dysuria and calf pain. she continues to have a cough. Her calf feels a little tight but, not painful. It is actually less swollen than it was on Thursday. Chest x-ray shows prominent central pulmonary arteries with mild hyperinflation. There is linear atelectasis at the left base. There is thoracic osteopenia with moderate spondylosis and increased kyphosis. She tells me that her sister this year from Gastric CA. She also told me that she has had colon polyps removed years ago. She was seen by Dr. Swanson yesterday and he plans on doing an EGD. I reviewed his consult and it is interesting that she also has pain with swallowing and peripheral eosinophilia........putting eosinophilic esophagitis in the differential. I suspect the cough is related to the esophageal retention and reflux. She has noted that her voice is different than it was and when I asked if it sounds more hoarse she said yes. Objective Data Objective Data Vital Signs: Vital Signs Temp Pulse Resp BP Pulse Ox O2 Del Method 97.8 F 61 14 135/76 H 95 Room Air 05/04/23 07:54 05/04/23 07:54 05/04/23 07:54 05/04/23 07:54 05/04/23 07:54 05/04/23 07:54 Oxygen Delivery Method Room Air Weight: 180 lb 12.465 oz Body Mass Index (BMI) 32.0 Intake & Output: Intake and Output for Last 24 Hours 05/02/23 05/03/23 05/04/23 23:59 23:59 23:59 Intake Total 280 / 280 120 / 120 Output Total 200 / 200 270 / 270 Balance -200 / -200 120 / 120 Lab / Micro Data 05/02/23 05:27 05/02/23 05:27 Labs: Laboratory Results - last 24 hr 05/04/23 05:13: Vitamin D 25-Hydroxy 21.6 Micro: Microbiology 05/02/23 10:00 Stool Stool Occult Blood (TARIK) - Final Occult Blood Positive Physical Exam Const alert Constitutional Narrative: She has memory difficulties. Could not recall my name and could not remember where I went on vacation recently and we discussed this on Thursday. ST is working with her. She is pleasant and very talkative. General Appearance: cooperative HEENT HEENT Narrative: no evidence of thrush. Mouth: dry mucous membranes Neck no lymphadenopathy Resp normal respiratory effort Resp Narrative: No conversational dyspnea. BS's mildly diminished in the left base with a rare coarse crackle, chest x-ray showing left basilar atelectasis. Effort and Inspection: Negative for tachypneic or labored Cardio regular rate, regular rhythm and no gallops Cardio Narrative: No ectopy GI normal to inspection, nondistended, normoactive bowel sounds, soft to palpation and non-tender GI Narrative: No guarding with palpation. No masses appreciated. Extremity no calf tenderness Extremity Narrative: Negative Homans and negative Xavi signs. She is not tachycardic nor is she tachypneic. General Extremity: edema left (She has pitting edema of the left ankle and in fact the calf from the knee distally is swollen. There is no erythema and no increased warmth to touch.) Skin Rashes: no rashes Assessment & Plan Assessment/Plan (1) Debility: (2) Osteoarthritis of left knee: (3) Status post total left knee replacement: (4) Hypocalcemia: (5) Parkinson's disease: QUALIFIERS: Dyskinesia presence: unspecified whether dyskinesia Fluctuating manifestations: unspecified whether manifestations fluctuate Qualified Code(s): G20.A1 - Parkinson's disease without dyskinesia, without mention of fluctuations (6) Chronic renal failure, stage 3a: (7) Hypertension: QUALIFIERS: Hypertension type: primary hypertension Qualified Code(s): I10 - Essential (primary) hypertension (8) Depression: (9) GERD (gastroesophageal reflux disease): (10) Hypothyroidism: (11) Acute blood loss anemia (ABLA): (12) Eosinophilia: (13) Chronic cough: (14) Heme + stool: (15) Dysphagia: QUALIFIERS: Dysphagia type: oropharyngeal phase Qualified Code(s): R13.12 - Dysphagia, oropharyngeal phase (16) Vitamin D insufficiency: PLAN: Plan 1. Continue therapy 2. Add cholecalciferol 1000 units p.o. daily to current drug regimen 3. I think the drop in HGB from 04/28 is likely due to better hydration and not ongoing blood loss but, hemoccult stool is +. 4. I spoke with No Garcia's dtr, and with No Olea's , when they were in to visit today and answered all there questions and explained about the EGD....yes she will be sedated and yes it will be done in the endoscopy suite where she will be monitored. Charges/Coding Visit Charges Inpatient E&M: 92041 Subs Hosp L2
[2023-05-04] MEDS: MELATONIN 3 MG TABLET PO (20:43)
[2023-05-04] MEDS: Atorvastatin Calcium 40 MG Tablet PO (20:43)
[2023-05-04 20:48] VITALS: BP 135/70; PULSE 70; RESP 17; TEMP 36.9; O2SAT 97
[2023-05-04] MEDS: NYSTATIN 500,000 UNIT/5 ML UDC 500000 UNIT PO (21:05)
[2023-05-05] MEDS: traMADol 50 MG Tablet PO ×2 (04:18→11:51)
[2023-05-05] MEDS: Levothyroxine 50 MCG Tablet PO (06:41)
[2023-05-05] MEDS: Acetaminophen 500 MG Tablet 1000 MG PO ×3 (06:41→20:57)
[2023-05-05 07:29] VITALS: BP 139/73; PULSE 67; RESP 16; TEMP 36.7; O2SAT 94
[2023-05-05] MEDS: Carbidopa/Levodopa 25/100 Tablet PO ×4 (07:46→20:58)
[2023-05-05] MEDS: Senna/Docusate Sodium 1 Tablet 2 TABLET PO ×2 (07:46→20:58)
[2023-05-05] MEDS: Aspirin E.C. 81 MG Tablet PO ×2 (07:46→20:58)
[2023-05-05] MEDS: Pantoprazole Sodium 40 MG Tablet PO ×2 (07:46→20:59)
[2023-05-05] MEDS: Meloxicam 15 MG Tablet PO (07:47)
[2023-05-05] MEDS: amLODIPine 2.5 MG Tablet PO (07:48)
[2023-05-05] MEDS: Potassium Chloride Oral Tablet 10 MEQ PO (07:48)
[2023-05-05] MEDS: Paroxetine 20 MG Tablet PO (07:48)
[2023-05-05] MEDS: NYSTATIN 500,000 UNIT/5 ML UDC 500000 UNIT PO ×4 (07:48→20:59)
[2023-05-05] MEDS: Cholecalciferol (VIT D3) 25 MCG TABLET (1,000 UNITS) 50 MCG PO (07:49)
[2023-05-05] MEDS: Menthol/Lanolin/Calamine/Znox 113 GM Tube 1 APPLIC TOPICAL (07:50)
--- NOTE | 2023-05-05 11:05 | PCM.PROGNOTE ---
Subjective Subjective Afebrile VSS Maintaining appropriate oxygen saturation on RA Oral intake is good Weight is stable Discussed with nursing - no problems that need addressed Reviewed the PT/OT/ST notes Medication list reviewed. No denies lightheadedness, vertigo, CP, SOB at rest, SOB with exertion, cough, nausea, vomiting, abd pain, diarrhea, constipation, dysuria, calf pain and cephalgia. the Left LE is not feeling as tight as it was yesterday. She has a SUSIE on the LLE now and she has been elevating her leg. Objective Data Objective Data Vital Signs: Vital Signs Temp Pulse Resp BP Pulse Ox O2 Del Method 98.0 F 67 16 139/73 H 94 Room Air 05/05/23 07:29 05/05/23 07:29 05/05/23 07:29 05/05/23 07:29 05/05/23 07:29 05/05/23 07:29 Oxygen Delivery Method Room Air Weight: 180 lb 12.465 oz Body Mass Index (BMI) 32.0 Intake & Output: Intake and Output for Last 24 Hours 05/03/23 05/04/23 05/05/23 23:59 23:59 23:59 Intake Total 280 / 280 120 / 120 Output Total 270 / 270 Balance 120 / 120 Lab / Micro Data 05/02/23 05:27 05/02/23 05:27 Micro: Microbiology 05/02/23 10:00 Stool Stool Occult Blood (TARIK) - Final Occult Blood Positive Physical Exam Const alert, oriented x3 and no apparent distress General Appearance: cooperative HEENT moist oral mucous membranes Resp normal respiratory effort Resp Narrative: No conversational dyspnea. BS's mildly diminished in the left base with a rare coarse crackle, chest x-ray showing left basilar atelectasis. Effort and Inspection: Negative for tachypneic or labored Cardio regular rate, regular rhythm, no murmurs, no rub and no gallops Cardio Narrative: No ectopy GI normal to inspection, nondistended, normoactive bowel sounds, soft to palpation and non-tender GI Narrative: No guarding with palpation. No masses appreciated. Extremity no calf tenderness Extremity Narrative: The edema in the L distal leg is less today and she has compression now to the distal leg. General Extremity: edema left (She has pitting edema of the left ankle and in fact the calf from the knee distally is swollen. There is no erythema and no increased warmth to touch.) Skin General Skin Exam: no breakdown Rashes: no rashes Wound Narrative: The incision is intact with no dehiscence and no vitor-incisional erythema to purulent DC present. Psych cooperative and affect normal Psych Narrative: She is calmer today and no longer shaking her leg. She is more comfortable when talking with me. Making good eye contact. Appearance: appropriate Attitude: No agitated Activity / Motor Behavior: Negative for restless Assessment & Plan Assessment/Plan (1) Debility: (2) Osteoarthritis of left knee: (3) Status post total left knee replacement: (4) Hypocalcemia: (5) Parkinson's disease: QUALIFIERS: Dyskinesia presence: unspecified whether dyskinesia Fluctuating manifestations: unspecified whether manifestations fluctuate Qualified Code(s): G20.A1 - Parkinson's disease without dyskinesia, without mention of fluctuations (6) Chronic renal failure, stage 3a: (7) Hypertension: QUALIFIERS: Hypertension type: primary hypertension Qualified Code(s): I10 - Essential (primary) hypertension (8) Depression: QUALIFIERS: Depression Type: other depression Qualified Code(s): F32.89 - Other specified depressive episodes (9) GERD (gastroesophageal reflux disease): QUALIFIERS: Esophagitis presence: esophagitis presence not specified Qualified Code(s): K21.9 - Gastro-esophageal reflux disease without esophagitis (10) Hypothyroidism: QUALIFIERS: Hypothyroidism type: acquired Qualified Code(s): E03.9 - Hypothyroidism, unspecified (11) Acute blood loss anemia (ABLA): PLAN: Stable (12) Eosinophilia: QUALIFIERS: Eosinophilia type: unspecified eosinophilia Qualified Code(s): D72.10 - Eosinophilia, unspecified PLAN: persistent since at least 2012....etiology at this time is not known. With the dysphagia, painful swallowing and the stricture on MBS she could have eosinophilic esophagitis. (13) Chronic cough: PLAN: Due to reflex, esophageal retention? (14) Heme + stool: (15) Dysphagia: QUALIFIERS: Dysphagia type: oropharyngeal phase Qualified Code(s): R13.12 - Dysphagia, oropharyngeal phase (16) Vitamin D insufficiency: PLAN: Supplement started. PLAN: Plan 1. Continue therapy 2. Recheck a HH and BMP on Thursday 3. Plan DC home on Thursday 4. D/W Dr. Swansno whether he plans to do the EGD while she is on rehab OR as OP. She has not had a colonoscopy for many years and she had 2 polyps removed in the past......if no source of bleeding in the UGI tract she should have a colonoscopy. Charges/Coding Visit Charges Inpatient E&M: 44477 Subs Hosp L2
[2023-05-05 20:00] VITALS: BP 126/56; PULSE 69; RESP 20; TEMP 37; O2SAT 97
[2023-05-05] MEDS: Atorvastatin Calcium 40 MG Tablet PO (20:59)
[2023-05-05] MEDS: MELATONIN 3 MG TABLET PO (20:59)
[2023-05-06] MEDS: Acetaminophen 500 MG Tablet 1000 MG PO ×3 (06:09→20:28)
[2023-05-06] MEDS: Levothyroxine 50 MCG Tablet PO (06:09)
[2023-05-06 07:22] VITALS: BP 123/72; PULSE 72; RESP 17; TEMP 36.3; O2SAT 97
[2023-05-06] MEDS: Paroxetine 20 MG Tablet PO (07:51)
[2023-05-06] MEDS: NYSTATIN 500,000 UNIT/5 ML UDC 500000 UNIT PO ×4 (07:51→20:27)
[2023-05-06] MEDS: Aspirin E.C. 81 MG Tablet PO ×2 (07:51→20:26)
[2023-05-06] MEDS: Pantoprazole Sodium 40 MG Tablet PO ×2 (07:51→20:27)
[2023-05-06] MEDS: Menthol/Lanolin/Calamine/Znox 113 GM Tube 1 APPLIC TOPICAL (07:51)
[2023-05-06] MEDS: amLODIPine 2.5 MG Tablet PO (07:51)
[2023-05-06] MEDS: Potassium Chloride Oral Tablet 10 MEQ PO (07:51)
[2023-05-06] MEDS: Carbidopa/Levodopa 25/100 Tablet PO ×4 (07:52→20:28)
[2023-05-06] MEDS: Senna/Docusate Sodium 1 Tablet 2 TABLET PO ×2 (07:52→20:27)
[2023-05-06] MEDS: Cholecalciferol (VIT D3) 25 MCG TABLET (1,000 UNITS) 50 MCG PO (07:52)
[2023-05-06] MEDS: Meloxicam 15 MG Tablet PO (07:52)
[2023-05-06 12:13] VITALS: BP 130/66; PULSE 72; RESP 17; O2SAT 98
--- NOTE | 2023-05-06 12:27 | NURSING ---
Pt c/o Chest pain under bilateral breasts. No SOB. not radiating. VS NWL. Dr Fung made aware. EKG complete
--- NOTE | 2023-05-06 16:06 | CHAPLAIN ---
Type of Pastoral Visit _x__ Initial Visit ___ Follow-up Visit ___ On-call Visit ___ General Patient Visit ___ Spiritual Assessment ___ Family Conference ___ Bereavement ___ Rapid Response ___ Code Blue ___ Other (describe below) Pastoral Care Referral From _x__ Patient ___ Family ___ Nurse ___ Physician ___ Science Instructor ___ Punch Out Crew Member ___ Other (describe below) Sacrament/Intervention _x__ Active listening ___ Anointing ___ Taoism ___ Bereavement ___ Communion ___ Fannie exploration ___ _x__ Life review ___ Prayer ___ Reconciliation ___ Sacrament of Sick _x__ Supportive presence ___ Wedding ___ Other (describe below) Pastoral Comments patient is welcoming and talkative about her life, her surgery/recovery, her family, and her thoughts on spirituality; pt is spiritual but not connected to a sabianism; pt states she enjoys the opportunity to be with people and is thankful for such a visit with 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
[2023-05-06] MEDS: Atorvastatin Calcium 40 MG Tablet PO (20:27)
[2023-05-06] MEDS: MELATONIN 3 MG TABLET PO (20:27)
[2023-05-06 21:00] VITALS: PULSE 72; RESP 15; O2SAT 98
[2023-05-06 22:00] VITALS: BP 126/51; PULSE 68; RESP 15; TEMP 36.9; O2SAT 98
[2023-05-07] MEDS: oxyCODONE 5 MG Tablet 2.5 MG PO (00:37)
[2023-05-07] MEDS: Acetaminophen 500 MG Tablet 1000 MG PO ×3 (05:32→20:40)
[2023-05-07] MEDS: Levothyroxine 50 MCG Tablet PO (05:33)
[2023-05-07] MEDS: Polyethylene Glycol 3350 17 GM PACKET PO (08:38)
[2023-05-07] MEDS: Paroxetine 20 MG Tablet PO (08:39)
[2023-05-07] MEDS: Cholecalciferol (VIT D3) 25 MCG TABLET (1,000 UNITS) 50 MCG PO (08:39)
[2023-05-07] MEDS: amLODIPine 2.5 MG Tablet PO (08:40)
[2023-05-07] MEDS: Potassium Chloride Oral Tablet 10 MEQ PO (08:40)
[2023-05-07] MEDS: Senna/Docusate Sodium 1 Tablet 2 TABLET PO ×2 (08:40→20:40)
[2023-05-07] MEDS: Meloxicam 15 MG Tablet PO (08:40)
[2023-05-07] MEDS: NYSTATIN 500,000 UNIT/5 ML UDC 500000 UNIT PO ×4 (08:40→20:39)
[2023-05-07] MEDS: Pantoprazole Sodium 40 MG Tablet PO ×2 (08:40→20:40)
[2023-05-07] MEDS: Aspirin E.C. 81 MG Tablet PO ×3 (08:40→20:39)
[2023-05-07] MEDS: Carbidopa/Levodopa 25/100 Tablet PO ×4 (08:41→20:40)
[2023-05-07] MEDS: traMADol 50 MG Tablet PO ×2 (08:44→20:40)
[2023-05-07] MEDS: Magnesium Hydroxide 30 ML UDC PO (08:48)
[2023-05-07] MEDS: Menthol/Lanolin/Calamine/Znox 113 GM Tube 1 APPLIC TOPICAL ×2 (08:52→20:39)
[2023-05-07 10:00] VITALS: BP 125/65; PULSE 67; RESP 14; TEMP 36.3; O2SAT 96
--- NOTE | 2023-05-07 11:28 | PN_ITS ---
Subjective Subjective No was seen on TEAM rounds today. Lefty and Radha were present in the room. Afebrile VSS Maintaining appropriate oxygen saturation on RA Oral intake is good Discussed with nursing - Did not sleep well last night due to pain in the L knee......it was relieved after she got a Tramadol. She did not take any Tramadol yesterday until the dose she had early this morning. Reviewed the PT/OT/ST notes Medication list reviewed. Other than feeling tired she has not complaints today. Yesterday afternoon she had CP but, the EKG was normal except for low voltage. she denies CP today. She is known to have GERD and esophageal retention so I suspect the CP may have been due to reflux. Objective Data Objective Data Vital Signs: Vital Signs Temp Pulse Resp BP Pulse Ox O2 Del Method 97.4 F L 67 14 125/65 H 96 Room Air 05/07/23 10:00 05/07/23 10:00 05/07/23 10:00 05/07/23 10:00 05/07/23 10:00 05/07/23 10:00 Oxygen Delivery Method Room Air Weight: 180 lb 12.465 oz Body Mass Index (BMI) 32.0 Intake & Output: Intake and Output for Last 24 Hours 05/05/23 05/06/23 05/07/23 23:59 23:59 23:59 Intake Total 300 / 300 Balance 300 / 300 Lab / Micro Data 05/07/23 12:10 05/08/23 05:09 Micro: Microbiology 05/02/23 10:00 Stool Stool Occult Blood (TARIK) - Final Occult Blood Positive Physical Exam Const alert, oriented x3 and no apparent distress General Appearance: cooperative HEENT moist oral mucous membranes Resp normal respiratory effort Resp Narrative: No conversational dyspnea. BS's mildly diminished in the left base with a rare coarse crackle, chest x-ray showing left basilar atelectasis. Effort and Inspection: Negative for tachypneic or labored Cardio regular rate, regular rhythm, no murmurs, no rub and no gallops Cardio Narrative: No ectopy GI normal to inspection, nondistended, normoactive bowel sounds, soft to palpation and non-tender GI Narrative: No guarding with palpation. No masses appreciated. Extremity no calf tenderness Extremity Narrative: The edema in the L distal leg is less today and she has compression now to the distal leg. Skin General Skin Exam: no breakdown Rashes: no rashes Wound Narrative: The incision is intact with no dehiscence and no vitor-incisional erythema to purulent DC present. Psych cooperative and affect normal Appearance: appropriate Attitude: No agitated Activity / Motor Behavior: Negative for restless Assessment & Plan Assessment/Plan (1) Debility: (2) Osteoarthritis of left knee: (3) Status post total left knee replacement: (4) Hypocalcemia: (5) Parkinson's disease: QUALIFIERS: Dyskinesia presence: unspecified whether dyskinesia Fluctuating manifestations: unspecified whether manifestations fluctuate Qualified Code(s): G20.A1 - Parkinson's disease without dyskinesia, without mention of fluctuations (6) Chronic renal failure, stage 3a: (7) Hypertension: QUALIFIERS: Hypertension type: primary hypertension Qualified Code(s): I10 - Essential (primary) hypertension (8) Depression: QUALIFIERS: Depression Type: other depression Qualified Code(s): F32.89 - Other specified depressive episodes (9) GERD (gastroesophageal reflux disease): QUALIFIERS: Esophagitis presence: esophagitis presence not specified Qualified Code(s): K21.9 - Gastro-esophageal reflux disease without esophagitis (10) Hypothyroidism: QUALIFIERS: Hypothyroidism type: acquired Qualified Code(s): E03.9 - Hypothyroidism, unspecified (11) Acute blood loss anemia (ABLA): PLAN: Stable (12) Eosinophilia: QUALIFIERS: Eosinophilia type: unspecified eosinophilia Qualified Code(s): D72.10 - Eosinophilia, unspecified PLAN: persistent since at least 2012....etiology at this time is not known. With the dysphagia, painful swallowing and the stricture on MBS she could have e osinophilic esophagitis. (13) Chronic cough: PLAN: Due to reflex, esophageal retention? (14) Heme + stool: (15) Dysphagia: QUALIFIERS: Dysphagia type: oropharyngeal phase Qualified Code(s): R13.12 - Dysphagia, oropharyngeal phase (16) Vitamin D insufficiency: PLAN: Supplement started. PLAN: Plan 1. Continue therapy 2. Contact Dr. Swanson today to determine if he plans on doing the EGD as an inpatient or as an outpatient. 3. Lab ordered for the a.m. 4. Schedule tramadol 50 mg p.o. nightly. 5. Discharge home on Thursday with outpatient PT. Charges/Coding Visit Charges Inpatient E&M: 04043 Subs Hosp L2
[2023-05-07 12:29] LABS: Hematocrit 29.6 % (37-47); Hemoglobin 9.5 g/dL (12.0-15.0)
--- NOTE | 2023-05-07 12:46 | CASEMGMT ---
Social Work IDT met with patient, and dtr for Team meeting. Discussed patient's progress in PT/OT/ST/SN. Confirmed DC home 05/09. Offered HHC vs OP therapy. Family and pt prefer OP therapy at [place]. No DME needs. to transport. SW faxed referral to [place] OP PT/OT/ST. Plan: DC home with 05/09, [facility] OP PT/OT/ST Jessica Estrada, EARTH SCIENCE PROFESSOR STRIKE OFF MACHINE OPERATOR
[2023-05-07 19:21] VITALS: BP 121/64; PULSE 77; RESP 16; TEMP 36.8; O2SAT 94
[2023-05-07 19:24] VITALS: PULSE 82; RESP 16; O2SAT 97
[2023-05-07] MEDS: MELATONIN 3 MG TABLET PO (20:39)
[2023-05-07] MEDS: Atorvastatin Calcium 40 MG Tablet PO (20:39)
[2023-05-08] VITALS (7 sets, daily range): BP systolic 108–128; BP diastolic 57–86; PULSE 68–85; RESP 16–18; TEMP 36.2–36.7; O2SAT 92–100; BMI 32.0
--- NOTE | 2023-05-08 | IMM_PTH ---
PATIENT: SILVIANO WU LOC: RU U#:[id number] AGE/SX: 82/F ROOM: [facility] RE04/28/[address]: Dr. Karina Fung DO : 1940 BED: 1 DIS: 05/09/2023 SPEC #: [id number] RECD: 05/12/23 13:36 STATUS: SIENNA REFidel #: [id number] SAIMA: 05/08/23 00:[address]: Juanito Swanson DEPT: IMMUNOHISTOCHEMISTRY RECD BY: Jennifer Barrios ENTERED: 05/12/23 13:37 SP TYPE: IMMUNO OTHR DR: DO Dr. Korey Quezada Chi, MD Dr. Victor Velasquez, MD Tissues: Esophagus, NOS Procedures: P53 (initial) KI-67 (add) PHYSICIAN & INSTITUTION [place] [id number] SPECIMEN INFORMATION: Tissue Source: Distal esophagus Clinical Info: Dysphagia Specimen Number: [id number] [facility] code: [id number], [id number] METHODOLOGY: Deparaffinized sections of prefer/formalin-fixed tissue or PAP/DQ stained slides are incubated with monoclonal/polyclonal antibodies/oligonucleotide probes. Localization is made via biotin free immunoperoxidase method. Appropriate controls are performed and reacted as expected. Results on target cell population are indicated in the following table: RESULTS: ANTIBODY / CLONE RESULT P53 (DO-7) negative (null pattern) Ki-67 (30-9) negative, very low These tests were developed and their performance characteristics determined by [facility]. They may not have been cleared or approved by the U.S. Food and Drug Administration. The FDA has determined that such clearance or approval is not necessary. The above immunohistochemical/dualISH markers are ordered and reviewed by the Pathologist. INTERPRETATION: Distal esophagus, biopsy: Negative for dysplasia. DANIELA:ingrid 05/13/2023
[2023-05-08 06:37] LABS: Anion Gap 6 (5-15); BUN 29 mg/dL (7-18); BUN/Creat Ratio 25.9 RATIO (10-20); Calcium,Total 8.3 mg/dL (8.5-10.1); Chloride 109 mmol/L (98-107); Creatinine, Serum 1.12 mg/dL (0.55-1.02); EST Glomerular Filtration Rate 49 mL/min (>60); Est Glom Filt Rate - Afr Amer 60 mL/min (>60); Estimated Creatinine Clearance 32.04 ml/min; Glucose 89 mg/dL (74-106); Potassium 4.3 mmol/L (3.5-5.1); Sodium Level 141 mmol/L (136-145)
--- NOTE | 2023-05-08 11:50 | DCINST_ITS ---
Discharge Instructions Diet Discharge Diet: 4000 mg Sodium Diet and - (Low salt, low fat) Activity Discharge Activity: May Not Drive, May Shower, Use Walker and - (NO TUB BATHS AND NO SWIMMING) Weight Bearing Status: Full weight bearing Lifting Restrictions: 5 lbs Keep extremity elevated above heart level: Left Leg Additional Activity Instructions:: Get up at least once every hour and take a walk around the inside of your home to keep the knee from getting stiff. This will help with pain control. Do the exercises given to you by therapy at least once a day.....twice would be better. Dressing / Incision Call your doctor if your incision/area has: Continuous Slow Oozing, Sudden Increased Bleeding, Increased Pain/ Swelling, Increased Redness, Foul Smelling Discharge and Swelling at the incision site Call your doctor if you observe: Fever of 101 or Higher, Inability to urinate, Inability to have a bowel movement, Shortness of breath, Dizziness, Fainting spells, Chest pain, Increased palpitations (irregular heartbeat), Calf discomfort and Uncontrolled pain Suture Line Care: Avoid Pulling/Pushing and Avoid Pinching/Bending Remove Dressing in: no dressin Cleanse incision/area with: Soap & Water Additional Dressing/Incision Instructions:: You do not have to have a dressing on the incision but, if your pants are rubbing the incision and irritating it you can apply a light dry dressing. Make sure to continue wearing the white compression stockings to help control swelling and elevate the left leg any time you are sitting in a chair. Follow Up Care Please Follow Up With: Sanchez Lacey MD When: within the next 2 weeks. You will also need to follow up with Dr. Estrella/Bill Haque at [facility] on 05/19/23 at [address] Swanson to discuss the results of the biopsies. Test Results: Test results from this visit will be discussed in further detail at your follow- up appointment, if applicable. 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 1. It is VERY IMPORTANT for you to MOVE. IF you do not move and do your exercises you will probably not regain full range of motion at the knee and it will be stiff and painful. After 3 months you should be walking like a champ and not having pain. No pain, no gain.......Do Your exercises. 2. Listen to your family when they tell you you need to do your exercises and do not put it off until the end of the day because, you will forget and they won't get done. 3. We checked the vitamin D level and it was low. vitamin D comes from the sun and we don't see much of the sun in [place] so many [place] have low Vitamin D levels and need to take a supplement. Vitamin D is necessary to absorb Calcium from you gastrointestinal tract. Without sufficient vitamin D your calcium will drop. This can lead to osteoporosis and bone loss. I am giving you a prescription for a vitamin D supplement and you will take it once a day. It is available [id number] so you can ask your pharmacist for recommendation. 4. You have stage 3 chronic renal/kidney failure. I don't know if anyone has told you this is the past. There are 5 stages of kidney failure. When you get to stage 5 you are headed for dialysis. Medications like Meloxicam, Motrin, Advil, Naprosyn and Aleve can damage your kidneys and you probably should not be taking these at this time in your life. I recommend that you discuss this with Dr. Lacey. 5. The endoscopy(EGD) showed a tight stricture in the upper esophagus called a Schatzki's ring. Dr. Swanson dilated the ring. The esophagus was very tortuous. You have a hiatal hernia and reflux. You also had pyloric stenosis. The pylorus is the region between the stomach and the duodenum. You have delayed emptying of the stomach because of this and it can contribute to reflux. There is a line in the esophagus where the esophagus enters the stomach and this is called the Z line. The Z line was irregular and biopsies were taken. Chronic reflux can lead to an esophageal malignancy and the results of the biopsies will not be back to next week. 6. I have enjoyed getting to know you and sharing photos. KEEP MOVING.......it helps to prevent dementia and it will improve your chances of walking normally. If you or your family have any questions after you leave rehab please do not hesitate to call me. OFFICE: [phone] CELL: [phone] Discharge Orders/Prescriptions Prescriptions: New acetaminophen 500 mg Tablet 1,000 mg PO Q8 Qty: 1 0RF Rx Instructions: Take 1,000 mg every 8 hours for 1-2 weeks and as the pain gets better you can convert to taking it every 8 hours as needed. paroxetine HCl 20 mg Tablet 20 mg PO DAILY Qty: 30 0RF pantoprazole 40 mg Tablet,Delayed Release (Dr/Ec) 40 mg PO BID Qty: 60 0RF cholecalciferol (vitamin D3) 25 mcg (1,000 unit) Tablet 50 mcg PO DAILY Qty: 60 12RF nystatin 100,000 unit/mL Suspension 500,000 unit PO 4X/DAY Qty: 200 0RF Rx Instructions: 1 teaspoon 4 X's a day.....swish and swallow for thrush tramadol 50 mg Tablet 50 mg PO Q6H PRN PRN (Reason: Pain Score 1-5) Qty: 28 0RF Continued carbidopa-levodopa 1 EACH tablet 1.5 tab PO 4X/DAY amlodipine 2.5 mg tablet 2.5 mg PO DAILY Patient Comments: TAKE 1 TABLET BY MOUTH EVERY DAY atorvastatin 40 mg tablet 40 mg PO QHS Patient Comments: TAKE 1 TABLET BY MOUTH EVERYDAY AT BEDTIME levothyroxine 50 mcg tablet 50 mcg PO DAILY Patient Comments: TAKE 1 TABLET BY MOUTH ONCE DAILY. TAKE ON EMPTY STOMACH. FOR THYROID. meloxicam 15 mg tablet 15 mg PO DAILY Patient Comments: TAKE 1 TABLET BY MOUTH EVERY DAY potassium chloride [Klor-Con 10] 10 mEq tablet extended release 10 meq PO DAILY Patient Comments: TAKE 1 TABLET BY MOUTH EVERY DAY WITH BREAKFAST aspirin [Adult Low Dose Aspirin] 81 mg tablet,delayed release (DR/EC) 81 mg PO BID Qty: 1 0RF Rx Instructions: Take 1 baby aspirin twice a day with food until May 25and then discontinue. This is to help prevent blood clots after your surgery. Discontinued paroxetine HCl 20 MG tablet 30 mg PO DAILY omeprazole 20 MG capsule,delayed release(DR/EC) 20 mg PO DAILY hydrochlorothiazide 12.5 mg capsule 12.5 mg PO DAILY Patient Comments: TAKE 1 CAPSULE BY MOUTH ONCE DAILY Referrals / Follow Up: [facility] [Provider Group] - 05/11/23 11:00 am (Елена REYNOLDS) Juanito Swanson DO [Med Staff - Active Staff] - Sanchez Lacey MD [Primary Care Provider] - Freddy Gordon PA-C [Med Staff - Adv Practice Prof] - 05/19/23 2:00 am Disposition Disposition (needs filled in before D/C Order can be placed): Home, Self Care
--- NOTE | 2023-05-08 13:25 | NURSING ---
report called to ac belinda calvo with no questions voiced. pt in gown and back to bed. had just been up to void 10min prior. sl flushed per deisy trevino with no diff. pt sent to endo via bed with chart.
[2023-05-08] MEDS: Lactated Ringers 1,000 ML 15 ML IV (13:28)
--- NOTE | 2023-05-08 14:00 | EGD_PTH ---
PATIENT: SILVIANO WU LOC: RU U#:[id number] AGE/SX: 82/F ROOM: [facility] RE04/28/[address]: Dr. Karina Fung DO : 1940 BED: 1 DIS: 05/09/2023 SPEC #: [id number] RECD: 05/08/23 18:30 STATUS: SIENNA MONCHO #: [id number] SAIMA: 05/08/23 14:[address]: Juanito Swanson DEPT: SURGICAL PATHOLOGY RECD BY: Esther Sommers ENTERED: 05/11/23 07:58 SP TYPE: EGD BIOPSY OTHR DR: DO Dr. Korey Quezada Chi, MD Dr. Victor Velasquez, MD Tissues: Esophageal mucous membrane Procedures: Special Stain Group II Surgery Specimen Level IV Alcian Blue/PAS (control) Comments: @ Ordering doctor for SUIV edited from to @ by [email or web address] at 05/11/23 1529 @ Submitting doctor edited from to @ by RGOOD at 05/11/23 1529 HEADER OPERATION: EGD with biopsy and dilation PRE-OP DIAGNOSIS: Dysphagia TISSUE SUBMITTED: Distal esophagus MICROSCOPIC DIAGNOSIS Distal esophagus, biopsy: Fragments of gastroesophageal mucosa with focal intestinal metaplasia (goblet cell metaplasia), consistent with Crenshaw's esophagus. Chronic inflammation. Negative for dysplasia. See comment. DANIELA:ingrid 05/12/2023 COMMENT Immunohistochemistry ([id number]) for P53 and Ki-67 will be performed and results will be reported separately. Alcian blue/PAS stain with matched control is used in the evaluation of the specimen. Correlation with clinical, endoscopic findings and appropriate follow up are necessary. MICROSCOPIC DESCRIPTION Slides are reviewed. GROSS DESCRIPTION Received in fixative is one container labeled with the patient's name and designated distal esophagus. The specimen consists of multiple irregular fragments of light schulz soft tissue that in aggregate measure 1.5 x 0.7 x 0.1 cm. The specimen is totally submitted in one cassette. / DANIELA:ingrid 05/11/2023 TC:3 CPT: 44178, 89275
--- NOTE | 2023-05-08 14:28 | OP.EGD_ITS ---
Patient Name: Slama Lowe Procedure Date: 05/08/2023 1:40 PM Date of : 1940 Age: 82 Procedure: Upper GI endoscopy Indications: Dysphagia Providers: Juanito Swanson DO Medicines: Monitored Anesthesia Care Patient Profile: This is an 82 year old female. Refer to note in patient chart for documentation of history and physical. Patient has symptoms of chronic dysphagia and dysphagia with solids. Complications: No immediate complications. Procedure: Pre-Anesthesia Assessment: - Prior to the procedure, a History and Physical was performed, and patient medications and allergies were reviewed. The risks and benefits of the procedure and the sedation options and risks were discussed with the patient. All questions were answered and informed consent was obtained. Patient identification and proposed procedure were verified by the physician. Mental Status Examination: normal. Prophylactic Antibiotics: The patient does not require prophylactic antibiotics. Prior Anticoagulants: The patient has taken no anticoagulant or antiplatelet agents. ASA Grade Assessment: III - A patient with severe systemic disease. After reviewing the risks and benefits, the patient was deemed in satisfactory condition to undergo the procedure. The anesthesia plan was to use monitored anesthesia care (MAC). Immediately prior to administration of medications, the patient was re-assessed for adequacy to receive sedatives. The heart rate, respiratory rate, oxygen saturations, blood pressure, adequacy of pulmonary ventilation, and response to care were monitored throughout the procedure. The physical status of the patient was re-assessed after the procedure. After obtaining informed consent, the endoscope was passed under direct vision. Throughout the procedure, the patient's blood pressure, pulse, and oxygen saturations were monitored continuously. The Endoscope was introduced through the mouth, and advanced to the second part of duodenum. The upper GI endoscopy was accomplished without difficulty. The patient tolerated the procedure well. Scope In: 2:12:08 PM Scope Out: 2:18:46 PM Total Procedure Duration Time 0 hours 6 minutes 38 seconds Findings: The examined esophagus was significantly tortuous. A high-grade of narrowing Schatzki ring was found at the gastroesophageal junction. A guidewire was placed and the scope was withdrawn. Dilation was performed with a Savary dilator with no resistance at 51 Fr. The dilation site was examined and showed moderate improvement in luminal narrowing. Estimated blood loss was minimal. The Z-line was irregular and was found 40 cm from the incisors. Biopsies were taken with a cold forceps for histology. Verification of patient identification for the specimen was done. Estimated blood loss was minimal. A large hiatal hernia was present. A benign-appearing, intrinsic severe stenosis was found at the pylorus. This was non-traversed. A TTS dilator was passed through the scope. Dilation with a 15 mm pyloric balloon dilator was performed. The dilation site was examined following endoscope reinsertion and showed moderate improvement in luminal narrowing. Estimated blood loss was minimal. No gross lesions were noted in the second portion of the duodenum. Impression: - Tortuous esophagus. - High-grade of narrowing Schatzki ring. Dilated. - Z-line irregular, 40 cm from the incisors. Biopsied. - Large hiatal hernia. - Gastric stenosis was found at the pylorus. Dilated. - No gross lesions in the second portion of the duodenum. Recommendation: - Return patient to [facility] for ongoing care. - Full liquid diet. - Use Protonix (pantoprazole) 40 mg PO BID for 12 weeks. - Continue present medications. Procedure Code(s): --- Professional --- 87286, Esophagogastroduodenoscopy, flexible, transoral; with dilation of gastric/duodenal stricture(s) (eg, balloon, bougie) 20261, Esophagogastroduodenoscopy, flexible, transoral; with insertion of guide wire followed by passage of dilator(s) through esophagus over guide wire 40068, 59,51, Esophagogastroduodenoscopy, flexible, transoral; with biopsy, single or multiple CPT copyright 2021 [employer]. All rights reserved. The codes documented in this report are preliminary and upon tinner automatic review may be revised to meet current compliance requirements. Juanito Swanson DO 05/08/2023 2:27:09 PM This report has been signed electronically. Number of Addenda: 0 Note Initiated On: 05/08/2023 1:40 PM
--- NOTE | 2023-05-08 14:28 | OP.CCLET_ITS ---
05/08/2023 Sanchez Lacey [address] [place] [address] Re : Upper GI endoscopy procedure for Salma Lowe Dear Dr. Lacey This procedure was performed on Monday, May 08, 2023. My impressions and recommendations are as follows: Impressions : - Tortuous esophagus. - High-grade of narrowing Schatzki ring. Dilated. - Z-line irregular, 40 cm from the incisors. Biopsied. - Large hiatal hernia. - Gastric stenosis was found at the pylorus. Dilated. - No gross lesions in the second portion of the duodenum. Recommendations : - Return patient to [facility] for ongoing care. - Full liquid diet. - Use Protonix (pantoprazole) 40 mg PO BID for 12 weeks. - Continue present medications. My findings are described in the full procedure note, which is enclosed. If I can be of further assistance, please feel free to contact me at . Sincerely, Juanito Swanson, 05/08/2023 2:27:09 PM This report has been signed electronically.
--- NOTE | 2023-05-08 16:22 | NURSING ---
1400-pt back to floor after egd a&ox3 and denies any pain or nausea. aware that full liq for rest of day ordered. no other needs at this time.
[2023-05-08] MEDS: Polyethylene Glycol 3350 17 GM PACKET PO (17:09)
[2023-05-08] MEDS: Menthol/Lanolin/Calamine/Znox 113 GM Tube 1 APPLIC TOPICAL ×2 (17:09→21:30)
[2023-05-08] MEDS: Potassium Chloride Oral Tablet 10 MEQ PO (17:09)
[2023-05-08] MEDS: Meloxicam 15 MG Tablet PO (17:10)
[2023-05-08] MEDS: NYSTATIN 500,000 UNIT/5 ML UDC 500000 UNIT PO ×3 (17:10→21:01)
[2023-05-08] MEDS: amLODIPine 2.5 MG Tablet PO (17:11)
[2023-05-08] MEDS: Paroxetine 20 MG Tablet PO (17:12)
[2023-05-08] MEDS: Pantoprazole Sodium 40 MG Tablet PO ×2 (17:12→21:02)
[2023-05-08] MEDS: Senna/Docusate Sodium 1 Tablet 2 TABLET PO ×2 (17:13→21:03)
[2023-05-08] MEDS: Carbidopa/Levodopa 25/100 Tablet PO ×2 (17:13→21:03)
[2023-05-08] MEDS: Cholecalciferol (VIT D3) 25 MCG TABLET (1,000 UNITS) 50 MCG PO (17:14)
[2023-05-08] MEDS: Aspirin E.C. 81 MG Tablet PO (21:01)
[2023-05-08] MEDS: Atorvastatin Calcium 40 MG Tablet PO (21:02)
[2023-05-08] MEDS: Acetaminophen 500 MG Tablet 1000 MG PO (21:03)
[2023-05-08] MEDS: MELATONIN 3 MG TABLET PO (21:04)
[2023-05-08] MEDS: traMADol 50 MG Tablet PO (21:07)
[2023-05-09] MEDS: Levothyroxine 50 MCG Tablet PO (06:56)
[2023-05-09] MEDS: Acetaminophen 500 MG Tablet 1000 MG PO (06:56)
[2023-05-09 07:55] VITALS: BP 114/63; PULSE 64; RESP 16; TEMP 36.7; O2SAT 92
[2023-05-09] MEDS: NYSTATIN 500,000 UNIT/5 ML UDC 500000 UNIT PO (09:39)
[2023-05-09] MEDS: Paroxetine 20 MG Tablet PO (09:39)
[2023-05-09] MEDS: Cholecalciferol (VIT D3) 25 MCG TABLET (1,000 UNITS) 50 MCG PO (09:40)
[2023-05-09] MEDS: Pantoprazole Sodium 40 MG Tablet PO (09:40)
[2023-05-09] MEDS: Polyethylene Glycol 3350 17 GM PACKET PO (09:41)
[2023-05-09] MEDS: Senna/Docusate Sodium 1 Tablet 2 TABLET PO (09:41)
[2023-05-09] MEDS: Aspirin E.C. 81 MG Tablet PO (09:42)
[2023-05-09] MEDS: Potassium Chloride Oral Tablet 10 MEQ PO (09:44)
[2023-05-09] MEDS: amLODIPine 2.5 MG Tablet PO (09:44)
[2023-05-09] MEDS: Menthol/Lanolin/Calamine/Znox 113 GM Tube 1 APPLIC TOPICAL (09:44)
[2023-05-09] MEDS: Carbidopa/Levodopa 25/100 Tablet PO (09:45)
[2023-05-09] MEDS: Meloxicam 15 MG Tablet PO (09:45)
--- NOTE | 2023-05-09 11:22 | PCM.DC.SUM ---
Providers Date of Admission: 04/28/23 Date of Discharge: 05/09/23 Primary Care Physician: Dr. Sanchez Lacey MD Consultations 05/01/23 12:19 Consult: Gastroenterology Routine Consulting Provider: [facility] Reason for Consult: esophageal dysmotility and esophageal retention. EMERGENT Consult: No MD Notified: Yes Date Notified: 05/01/23 Time Notified: 12:19 Method of Notification: Text Reason For Visit: L KNEE REPLACEMENT Diagnosis Discharge Diagnosis (1) Debility: Status: Acute Code(s): R53.81 - Other malaise (2) Osteoarthritis of left knee: Status: Inactive Code(s): M17.12 - Unilateral primary osteoarthritis, left knee (3) Status post total left knee replacement: Status: Acute Code(s): Z96.652 - Presence of left artificial knee joint Plan: Patient has an appointment to follow-up with Bill Haque/Dr. Estrella on the . Surgery was 04/27/23 and she will be taking ASA for DVT prophylaxis for 4 weeks from the date of surgery. (4) Parkinson's disease: Status: Inactive Code(s): G20 - Parkinson's disease Qualifiers: Dyskinesia presence: unspecified whether dyskinesia Fluctuating manifestations: unspecified whether manifestations fluctuate Qualified Code(s): G20.A1 - Parkinson's disease without dyskinesia, without mention of fluctuations (5) Chronic renal failure, stage 3a: Status: Inactive Code(s): N18.31 - Chronic kidney disease, stage 3a (6) Hypertension: Status: Inactive Code(s): I10 - Essential (primary) hypertension Qualifiers: Hypertension type: primary hypertension Qualified Code(s): I10 - Essential (primary) hypertension (7) Depression: Status: Inactive Code(s): F32.A - Depression, unspecified Qualifiers: Depression Type: other depression Qualified Code(s): F32.89 - Other specified depressive episodes (8) GERD (gastroesophageal reflux disease): Status: Inactive Code(s): K21.9 - Gastro-esophageal reflux disease without esophagitis Qualifiers: Esophagitis presence: esophagitis presence not specified Qualified Code(s): K21.9 - Gastro-esophageal reflux disease without esophagitis (9) Hypothyroidism: Status: Inactive Code(s): E03.9 - Hypothyroidism, unspecified Qualifiers: Hypothyroidism type: acquired Qualified Code(s): E03.9 - Hypothyroidism, unspecified (10) Acute blood loss anemia (ABLA): Status: Acute Code(s): D62 - Acute posthemorrhagic anemia Plan: Stable (11) Eosinophilia: Status: Acute Code(s): D72.10 - Eosinophilia, unspecified Qualifiers: Eosinophilia type: unspecified eosinophilia Qualified Code(s): D72.10 - Eosinophilia, 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 With the dysphagia, painful swallowing and the stricture on MBS she could have eosinophilic esophagitis. (12) Chronic cough: Status: Chronic Code(s): R05.3 - Chronic cough Plan: Due to reflux, esophageal retention? (13) Heme + stool: Status: Acute Code(s): R19.5 - Other fecal abnormalities (14) Dysphagia: Status: Acute Code(s): R13.10 - Dysphagia, unspecified Qualifiers: Dysphagia type: oropharyngeal phase Qualified Code(s): R13.12 - Dysphagia, oropharyngeal phase Plan: With esophageal retention due to a Schatzki's ring. (15) Vitamin D insufficiency: Status: Acute Code(s): E55.9 - Vitamin D deficiency, unspecified Plan: Supplement started. (16) Schatzki's ring: Status: Acute Code(s): K22.2 - Esophageal obstruction (17) Hiatal hernia: Status: Acute Code(s): K44.9 - Diaphragmatic hernia without obstruction or gangrene (18) Pyloric stenosis: Status: Acute Code(s): K31.1 - Adult hypertrophic pyloric stenosis (19) Irregular Z line of esophagus: Status: Acute Code(s): K22.9 - Disease of esophagus, unspecified Plan: Biopsies were taken on 05/08/2023 and the results are pending. Plan 1. DC home with OP Therapy. 2. She will follow up with Bill Haque/Dr. Estrella, Dr. Swanson and Dr. Lacey post DC. 3. She needs to take Protonix 40 mg BID for 12 weeks. RX given for [address] Lacey or Dr. Swanson can refill. 4. she is to avoid caffeine, chocolate and peppermint to help reduce reflux and she should not lie down for at least 1 hour after eating. 5. The Paxil dose was decreased to 20 mg daily due to CRF stage 3. Affect is normal at ID. 6. HCTZ was discontinued due to poor fluid intake and elevated BUN/CREAT ratio. BP remains well controlled. 7. Would consider discontinuing the use of NSAID's in light of stage 3 CRF. Medications at Discharge Home Medications carbidopa 25 mg-levodopa 100 mg tablet 1.5 tab PO 4X/DAY Parkinson 11/15/19 amlodipine 2.5 mg tablet 2.5 mg PO DAILY Blood Pressure 04/06/23 atorvastatin 40 mg tablet 40 mg PO QHS Cholesterol 04/06/23 levothyroxine 50 mcg tablet 50 mcg PO DAILY Thyroid 04/06/23 meloxicam 15 mg tablet 15 mg PO DAILY Arthritis 04/06/23 potassium chloride 10 mEq tablet,extended release (Klor-Con) 10 meq PO DAILY supplement 04/06/23 acetaminophen 500 mg tablet 1,000 mg (2 x 500 mg) PO Q8 #1 TAB 05/08/23 aspirin 81 mg tablet,delayed release (Adult Low Dose Aspirin) 81 mg PO BID DVT Proph #1 TAB 05/08/23 cholecalciferol (vitamin D3) 25 mcg (1,000 unit) tablet 50 mcg (2 x 25 mcg (1,000 unit)) PO DAILY #60 tabs 05/08/23 nystatin 100,000 unit/mL oral suspension 500,000 unit (5 mL) PO 4X/DAY #200 mL 05/08/23 pantoprazole 40 mg tablet,delayed release 40 mg PO BID #60 tabs 05/08/23 paroxetine HCl 20 mg tablet 20 mg PO DAILY #30 tabs 05/08/23 tramadol 50 mg tablet 50 mg PO Q6H PRN PRN Pain Score 1-5 #28 tabs 05/08/23 Hospital Course Operations total knee replacement (Left total knee replacement on 04/27/[address] Ayaz Estrella) Procedures EGD (Dr. Swanson on 05/08/2023 for dysphagia and esophageal obstruction) Summary of Care Provided Minutes Spent on Discharge: 45 Hospital Course: Salma Lowe is an 82-year-old female who underwent a left total knee replacement by Dr. Estrella on 04/27/2023. On 04/28/2023 she was transferred to the acute inpatient rehab unit for 3 hours of therapy daily to strengthen prior to returning home. She has for quite some time had difficulty swallowing both solids and liquids and she was seen by the speech therapist while on acute rehab. She had a modified barium swallow and had oral pharyngeal and pharyngoesophageal dysphagia. The esophageal phase was marked by impaired esophageal motility with significant retention in the esophagus and retrograde flow below the upper esophageal sphincter. She had a known hx of HH and GERD. Consultation was obtained with GI and she underwent an EGD on 05/08/2023. The exam revealed a tortuous esophagus, high-grade narrowing due to a Schatzki's ring which was dilated and an irregular Z-line which was biopsied. She had a large hiatal hernia and had gastric stenosis at the pylorus. The pylorus was also dilated. There were no gross lesions in the second portion of the duodenum. She will continue Protonix 40 mg twice daily for the next 12 weeks and she will need to follow-up with Dr. Swanson. The results of the biopsies will be discussed at her next appointment with Dr. Swanson. She did well in therapy. She had 97 degrees of flexion while sitting prior to leaving rehab. She was able to climb up twelve 6 inch steps with 2 handrails to contact guard assist prior to discharge. She had ambulated up to 200 feet on the rehab unit at contact-guard assist with a front wheeled walker. She also ambulated on uneven surfaces off the rehab unit at contact-guard assist. She was supervision/set up for eating, grooming, upper body dressing and toileting/toilet transfer.. She still needed minimal assistance with bathing and lower body dressing which her will provide at home. She was contact-guard assist for tub/shower transfer. She was discharged home on 05/09/2023. While she was in the hospital the Paxil dose was decreased to 20 mg daily due to chronic renal failure stage III with a maximum recommended dose of Paxil at 20 mg. She had been taking 30 mg as an outpatient. She consistently has poor fluid intake with an elevated BUN/creatinine ratio and hydrochlorothiazide was discontinued. The blood pressure remained well controlled. She was instructed not to take nonsteroidal anti-inflammatory drugs due to her stage III chronic renal failure. She was also instructed to avoid caffeine, chocolate, peppermints to help reduce reflux. She will not lie down for at least 1 hour after eating. Follow-up appointments were scheduled with Dr. Lacey and . Sky. Physical Exam Const alert, oriented x3 and no apparent distress General Appearance: cooperative HEENT Mouth: dry mucous membranes Resp normal respiratory effort Resp Narrative: No conversational dyspnea. BS's mildly diminished in the left base with a rare coarse crackle, chest x-ray showing left basilar atelectasis. Effort and Inspection: Negative for tachypneic or labored Cardio regular rate, regular rhythm, no murmurs, no rub and no gallops Cardio Narrative: No ectopy GI normal to inspection, nondistended, normoactive bowel sounds, soft to palpation and non-tender GI Narrative: No guarding with palpation. No masses appreciated. Extremity no calf tenderness Extremity Narrative: The edema in the L distal leg is less today and she has compression now to the distal leg. Skin General Skin Exam: no breakdown Rashes: no rashes Wound Narrative: The incision is intact with no dehiscence and no vitor-incisional erythema to purulent DC present. Psych cooperative and affect normal Appearance: appropriate Attitude: No agitated Activity / Motor Behavior: Negative for restless Weight / BMI Weight Weight: 180 lb 12.465 oz Body Mass Index (BMI) 32.0 ABG / Lab / Microbiology Data 05/07/23 12:10 05/08/23 05:09 Microbiology: Microbiology 05/02/23 10:00 Stool Stool Occult Blood (TARIK) - Final Occult Blood Positive D/C Instructions Discharge Diet: 4000 mg Sodium Diet and - (Low salt, low fat) Weight Bearing Status: Full weight bearing Keep extremity elevated above heart level: Left Leg Additional Activity Instructions: Get up at least once every hour and take a walk around the inside of your home to keep the knee from getting stiff. This will help with pain control. Do the exercises given to you by therapy at least once a day.....twice would be better. Call your doctor if your incision/area has: Continuous Slow Oozing, Sudden Increased Bleeding, Increased Pain/ Swelling, Increased Redness, Foul Smelling Discharge and Swelling at the incision site Call your doctor if you observe: Fever of 101 or Higher, Inability to urinate, Inability to have a bowel movement, Shortness of breath, Dizziness, Fainting spells, Chest pain, Increased palpitations (irregular heartbeat), Calf discomfort and Uncontrolled pain Suture Line Care: Avoid Pulling/Pushing and Avoid Pinching/Bending Cleanse incision/area with: Soap & Water Additional Dressing/Incision Instructions: You do not have to have a dressing on the incision but, if your pants are rubbing the incision and irritating it you can apply a light dry dressing. Make sure to continue wearing the white compression stockings to help control swelling and elevate the left leg any time you are sitting in a chair. Pending Tests Upon Discharge: none Please Follow Up With: Sanchez Lacey MD When: within the next 2 weeks. You will also need to follow up with Dr. Estrella/Bill Haque at [facility] on 05/19/23 at [address] Swanson to discuss the results of the biopsies. Meaningful Use Info Meaningful Use Diagnoses (Choose all that apply): None applicable Discharge Plan Admission Admit Date/Time: 04/28/23 18:50 Primary Reason for Your Visit: Debility due to severe OA/L TKA Attending Provider: Karina Fung Primary Care Provider: Sanchez Lacey Consulting Providers: Korey Wallace Chi Instructions Patient Instructions: Home Safety After Joint Surgery, Knee Replace Control Swelling, Caring for Your Incision, Knee Replace Manage Pain, Knee Replace At Home Exercise Additional Instructions / Restrictions: 1. 1. It is VERY IMPORTANT for you to MOVE. IF you do not move and do your exercises you will probably not regain full range of motion at the knee and it will be stiff and painful. After 3 months you should be walking like a champ and not having pain. No pain, no gain.......Do Your exercises. 2. Listen to your family when they tell you you need to do your exercises and do not put it off until the end of the day because, you will forget and they won't get done. 3. We checked the vitamin D level and it was low. vitamin D comes from the sun and we don't see much of the sun in [place] so many [place] have low Vitamin D levels and need to take a supplement. Vitamin D is necessary to absorb Calcium from you gastrointestinal tract. Without sufficient vitamin D your calcium will drop. This can lead to osteoporosis and bone loss. I am giving you a prescription for a vitamin D supplement and you will take it once a day. It is available [id number] so you can ask your pharmacist for recommendation. 4. You have stage 3 chronic renal/kidney failure. I don't know if anyone has told you this is the past. There are 5 stages of kidney failure. When you get to stage 5 you are headed for dialysis. Medications like Meloxicam, Motrin, Advil, Naprosyn and Aleve can damage your kidneys and you probably should not be taking these at this time in your life. I recommend that you discuss this with Dr. Lacey. 5. The endoscopy(EGD) showed a tight stricture in the upper esophagus called a Schatzki's ring. Dr. Swanson dilated the ring. The esophagus was very tortuous. You have a hiatal hernia and reflux. You also had pyloric stenosis. The pylorus is the region between the stomach and the duodenum. You have delayed emptying of the stomach because of this and it can contribute to reflux. There is a line in the esophagus where the esophagus enters the stomach and this is called the Z line. The Z line was irregular and biopsies were taken. Chronic reflux can lead to an esophageal malignancy and the results of the biopsies will not be back to next week. 6. I have enjoyed getting to know you and sharing photos. KEEP MOVING.......it helps to prevent dementia and it will improve your chances of walking normally. If you or your family have any questions after you leave rehab please do not hesitate to call me. OFFICE: [phone] CELL: [phone] Discharge Orders/Prescriptions Prescriptions: New acetaminophen 500 mg Tablet 1,000 mg PO Q8 Qty: 1 0RF Rx Instructions: Take 1,000 mg every 8 hours for 1-2 weeks and as the pain gets better you can convert to taking it every 8 hours as needed. paroxetine HCl 20 mg Tablet 20 mg PO DAILY Qty: 30 0RF pantoprazole 40 mg Tablet,Delayed Release (Dr/Ec) 40 mg PO BID Qty: 60 0RF cholecalciferol (vitamin D3) 25 mcg (1,000 unit) Tablet 50 mcg PO DAILY Qty: 60 12RF nystatin 100,000 unit/mL Suspension 500,000 unit PO 4X/DAY Qty: 200 0RF Rx Instructions: 1 teaspoon 4 X's a day.....swish and swallow for thrush tramadol 50 mg Tablet 50 mg PO Q6H PRN PRN (Reason: Pain Score 1-5) Qty: 28 0RF Continued carbidopa-levodopa 1 EACH tablet 1.5 tab PO 4X/DAY amlodipine 2.5 mg tablet 2.5 mg PO DAILY Patient Comments: TAKE 1 TABLET BY MOUTH EVERY DAY atorvastatin 40 mg tablet 40 mg PO QHS Patient Comments: TAKE 1 TABLET BY MOUTH EVERYDAY AT BEDTIME levothyroxine 50 mcg tablet 50 mcg PO DAILY Patient Comments: TAKE 1 TABLET BY MOUTH ONCE DAILY. TAKE ON EMPTY STOMACH. FOR THYROID. meloxicam 15 mg tablet 15 mg PO DAILY Patient Comments: TAKE 1 TABLET BY MOUTH EVERY DAY potassium chloride [Klor-Con 10] 10 mEq tablet extended release 10 meq PO DAILY Patient Comments: TAKE 1 TABLET BY MOUTH EVERY DAY WITH BREAKFAST aspirin [Adult Low Dose Aspirin] 81 mg tablet,delayed release (DR/EC) 81 mg PO BID Qty: 1 0RF Rx Instructions: Take 1 baby aspirin twice a day with food until May 25and then discontinue. This is to help prevent blood clots after your surgery. Discontinued paroxetine HCl 20 MG tablet 30 mg PO DAILY omeprazole 20 MG capsule,delayed release(DR/EC) 20 mg PO DAILY hydrochlorothiazide 12.5 mg capsule 12.5 mg PO DAILY Patient Comments: TAKE 1 CAPSULE BY MOUTH ONCE DAILY Referrals / Follow Up: [facility] [Provider Group] - 05/11/23 11:00 am (Елена REYNOLDS) Juanito Swanson DO [Med Staff - Active Staff] - Sanchez Lacey MD [Primary Care Provider] - Freddy Gordon PA-C [Med Staff - Adv Practice Prof] - 05/19/23 2:00 am Disposition Disposition (needs filled in before D/C Order can be placed): Home, Self Care Charges/Coding Visit Charges Inpatient E&M: 66693 Disch Hosp >30min
[2023-05-09 13:35] VITALS: BP 114/63; PULSE 64; RESP 16; TEMP 36.7; O2SAT 92
--- NOTE | 2023-05-09 13:45 | NURSING ---
Discharged to home with and both parties verbalized understanding to discharge instructions provided.
== END 2023-05-09 13:45 | disposition home or self-care (01) | DRG 560 ==
PROVIDERS: Internal Medicine Gastroenterology; Admitting Provider Family Medicine Geriatric Medicine; PCP Internal Medicine; Visit Provider Internal Medicine
PROC: 0DJ08ZZ Inspection of Upper Intestinal Tract, Via Natural or Artificial Opening Endoscopic (ICD-10-PCS; CPT 43235; principal; 2023-05-08 13:55)
DX: Z47.1 Aftercare following joint replacement surgery (principal); D62 Acute posthemorrhagic anemia; K22.0 Achalasia of cardia; D72.10 Eosinophilia, unspecified; K22.2 Esophageal obstruction; N18.31 Chronic kidney disease, stage 3a; E03.9 Hypothyroidism, unspecified; F32.A Depression, unspecified; I12.9 Hypertensive chronic kidney disease with stage 1 through stage 4 chronic kidney disease, or unspecified chronic kidney disease; E55.9 Vitamin D deficiency, unspecified; M17.12 Unilateral primary osteoarthritis, left knee; K21.9 Gastro-esophageal reflux disease without esophagitis; K44.9 Diaphragmatic hernia without obstruction or gangrene; E87.6 Hypokalemia; K31.89 Other diseases of stomach and duodenum; Z79.82 Long term (current) use of aspirin; G20.A1 Parkinson's disease without dyskinesia, without mention of fluctuations; Z96.652 Presence of left artificial knee joint; Z87.891 Personal history of nicotine dependence; R13.12 Dysphagia, oropharyngeal phase; Z79.899 Other long term (current) drug therapy; Z79.890 Hormone replacement therapy; Z86.718 Personal history of other venous thrombosis and embolism
CPT/HCPCS: 36415; 71046; 73560; 74230; 80048; 80053; 82274; 82306; 82962; 83735; 84100; 85014; 85018; 85025; 85027; 88305; 88311; 88313; 88341; 88342; 92507; 92526; 92610; 92611; 93005; 94668; 96361; 96365; 96366; 97110; 97116; 97162; 97166; 97530; 97535; 97802; 97803; 99221; 99252; C1776; J7120; A4216; C1769; G0378; G0463; J2405; J3475

== ENCOUNTER 2023-11-05 10:46 | Observation (INO) | payer MEDICARE, OTHER, SELFPAY ==
[2023-11-05] VITALS (7 sets, daily range): BP systolic 102–147; BP diastolic 70–109; PULSE 67–82; RESP 16–18; TEMP 36.4–36.6; O2SAT 96–100; BMI 28.8
--- NOTE | 2023-11-05 11:01 | CT_ITS ---
STUDY: CT BRAIN WITHOUT CONTRAST REASON FOR EXAM: Female, 83 years old. Head injury due to a fall. History of Parkinson''s. RADIATION DOSAGE (If Supplied By Facility): CTDIvol = ( 44.99 ) mGy, DLP = ( 796.11 ) mGycm TECHNIQUE: Transaxial CT imaging of the brain was performed without administration of intravenous contrast material. Individualized dose optimization techniques were used for this CT. COMPARISON: No relevant priors. FINDINGS: Normal soft tissue structures. Normal calvarium. There is mild cerebral atrophy with widening of the extra-axial spaces and ventricular dilatation. There are areas of decreased attenuation within the white matter tracts of the supratentorial brain, consistent with microvascular disease changes. There are small punctate calcifications of the basal ganglia which are seen in the aging brain as a normal variant. Normal brainstem. There is mild cerebellar atrophy. There is no intracranial hemorrhage. There are no findings of an acute ischemic infarction. Atherosclerotic calcification of the cavernous portions of the internal carotid arteries bilaterally. Normal visualized paranasal sinuses. CT/Brain/Head without Contrast IMPRESSION: Chronic involutional changes of the brain. Electronically Signed: Tonny Tee MD at 12:01 EDT ,
--- NOTE | 2023-11-05 11:01 | RAD_ITS ---
STUDY: X-RAY - LEFT KNEE REASON FOR EXAM: Female, 83 years old. Pain following fall. TECHNIQUE: 4 view(s) of the knee. COMPARISON: Comparison is made with prior study April 27, 2023. FINDINGS: Normal visualized distal femur. Normal visualized proximal tibia and fibula. Normal proximal tibiofibular articulation. The patient is status post total knee replacement. There is good alignment. Joint effusion and postoperative soft tissue changes. RAD/Knee 4 or More Views IMPRESSION: Status post left total knee replacement. There is good alignment. Residual soft tissue swelling and a joint effusion. Electronically Signed: Tonny Tee MD at 12:03 EDT ,
--- NOTE | 2023-11-05 11:02 | EKG12_ITS ---
Test Reason : Blood Pressure : / mmHG Vent. Rate : 068 BPM Atrial Rate : 068 BPM P-R Int : 164 ms QRS Dur : 072 ms QT Int : 430 ms P-R-T Axes : 035 007 038 degrees QTc Int : 457 ms SIGNIFICANT BASELINE ARTIFACT POSSIBLE SINUS RHYTHM Low voltage QRS Possible Inferior infarct , age undetermined Abnormal ECG Confirmed by KIA OBANDO, JEWELS ([id number]), science editor JOVANNY ALCARAZ ([id number]) on 11/09/2023 10:28:08 AM Referred By: Confirmed By:SHANTHI ADAM MD
--- NOTE | 2023-11-05 11:05 | ED.VIS.FALL ---
HPI HPI - Fall History of Present Illness Chief Complaint: Fall Informant: patient, spouse/S.O. and family Occured/Mechanism Occurred: Weeks Mechanism/Context: Yes same level fall Usually ambulates: Without assistance Pain/Injury Pain Location: pelvis and lower extremity Quality of Pain: Dull and Aching Current Severity: Mild Maximum Severity: Mild Associated Symptoms Associated Symptoms: Negative for Parasthesias, Weakness, Loss of function, Inability to ambulate, Loss of consciousness or Amnesia Narrative Narrative: 83-year-old female history of Parkinson's disease prior left knee replacement in April of last year. Denies history of falls is fallen about 3 times last 2 weeks. and daughter are with her they said her mental status is changed. They are concerned she may have a UTI. They saw her neurologist 2 weeks ago when she was still doing well and said that time she was fine. At that time her neurological score for her daily function had not changed. He denies fever. Denies chills. Denies vomiting or diarrhea. No headache. She is not on any blood thinners. No recent med changes. Prior similar symptoms: Yes Recent Illness/Hospitalization: No PFSH PFSH Medical History Alcohol use Arthritis Chronic cough Chronic renal failure, stage 3a Depression DVT (deep venous thrombosis) Eosinophilia Former smoker Gastric reflux GERD (gastroesophageal reflux disease) Hiatal hernia History of edema History of Holter monitoring History of pain when walking History of steroid therapy History of stress test Hypertension Hypocalcemia Hypokalemia Hypothyroidism Kidney stone Osteoarthritis of left knee Parkinson's disease Post-menopausal Pyloric stenosis Thyroid disease Wears glasses Wears partial dentures Home Medications carbidopa 25 mg-levodopa 100 mg tablet 1.5 tab PO 4X/DAY Parkinson 11/15/19 [History Last Taken 04/28/23] amlodipine 2.5 mg tablet 2.5 mg PO DAILY Blood Pressure 04/06/23 [History Last Taken 04/28/23] atorvastatin 40 mg tablet 40 mg PO QHS Cholesterol 04/06/23 [History Last Taken 04/27/23] levothyroxine 50 mcg tablet 50 mcg PO DAILY Thyroid 04/06/23 [History Last Taken 04/28/23] meloxicam 15 mg tablet 15 mg PO DAILY Arthritis 04/06/23 [History Last Taken 10/15/23] potassium chloride 10 mEq tablet,extended release (Klor-Con) 10 meq PO DAILY supplement 04/06/23 [History Last Taken 04/28/23] acetaminophen 500 mg tablet 1,000 mg (2 x 500 mg) PO Q8 #1 TAB 05/08/23 [Rx Last Taken Unknown] cholecalciferol (vitamin D3) 25 mcg (1,000 unit) tablet 50 mcg (2 x 25 mcg (1,000 unit)) PO DAILY #60 tabs 05/08/23 [Rx Last Taken Unknown] nystatin 100,000 unit/mL oral suspension 500,000 unit (5 mL) PO 4X/DAY #200 mL 05/08/23 [Rx Last Taken Unknown] paroxetine HCl 20 mg tablet 20 mg PO DAILY #30 tabs 05/08/23 [Rx Last Taken Unknown] tramadol 50 mg tablet 50 mg PO Q6H PRN PRN Pain Score 1-5 #28 tabs 05/08/23 [Rx Last Taken Unknown] pantoprazole 40 mg tablet,delayed release 40 mg PO BID #60 tabs 06/15/23 [Rx Last Taken Unknown] Allergy/AdvReac Type Severity Reaction Status Date / Time No Known Allergies Allergy Verified 11/05/23 10:46 Surgical History History of carpal tunnel surgery of right wrist Hx of bilateral cataract extraction Hx of tubal ligation Status post left knee replacement Status post total left knee replacement Social History household members: spouse Smoking Status: Former smoker alcohol intake: current details: Social. substance use type: does not use ROS ROS ED ROS Narrative Mental status change. Mild left hip and knee pain. Review of Systems ROS Unobtainable: Denies due to encephalopathy Constitutional Constitutional ED: Denies chills or fever(s) Eyes Eyes: Denies blurry vision ENT ENT ED: Denies ear pain Cardiovascular Cardiovascular: Denies chest pain Respiratory/Chest Respiratory/Chest: Denies cough or dyspnea Gastrointestinal Gastrointestinal: Denies abdominal pain Genitourinary Genitourinary ED: Reports dysuria and urinary frequency Musculoskeletal Musculoskeletal: Denies arthralgias Integumentary Denies abscess Neurologic Neurologic: Denies headache(s) Psychiatric Psychiatric: Denies anxiety or depression Endocrine Endocrinology: Denies polydipsia Hematologic/Lymphatic Hematologic/Lymphatic: Denies easy bleeding Allergic/Immunologic Allergic/Immunologic ED: Denies mouth swelling or tongue swelling EXAM Physical Exam Narrative Exam Narrative: And 3 of female no acute distress sitting upright in bed. He knows month, year current location. Answering questions following commands. and daughter at bedside. Vital signs are stable and afebrile. Pulse ox 100% room air no signs hypoxia. She is no distress. H EENT exam pupils round react to light. No facial droop. Normal speech. No signs of trauma. No tenderness to her scalp. Neck nontender. Back nontender. No bruising. Lungs clear to auscultation bilaterally. Heart regular rhythm no murmur. Chest wall and ribs nontender. Abdomen soft nontender. Moving all 4 extremities. Well-healed prior knee replacement surgery. Normal flexion extension of both hips, knees ankles and feet. Mild tenderness to the left knee minimal swelling. No bruising. No signs of deformity. Normal control manager strength of her hands. Normal range of motion of her upper extremities. Neurologically she is awake alert. Answering questions and following commands. No focal motor deficits. GCS 15. Const Vital Signs: 11/05/23 10:46 11/05/23 11:03 11/05/23 12:45 Temperature 98 F Temperature Source Temporal Pulse Rate 71 68 Respiratory Rate 16 18 Respiratory Effort Normal Non-Labored Respiratory Depth Normal Respiratory Pattern Normal Blood Pressure 147/90 H 130/70 H Blood Pressure Mean 109 90 Pulse Ox 100 97 Oxygen Delivery Method Room Air Room Air Positive well nourished and well developed; Negative for cachectic, contractures or unkempt General Appearance ED: well developed and NAD; Negative for unkempt, cachectic or contractures Nutritional Appearance: Negative for cachectic HEENT Reports normocephalic atraumatic; Negative for trauma, contusion, hematoma or tenderness Eyes PERRL and EOMs intact bilaterally General Eye ED: Negative for pale conjunctiva, scleral icterus or other Neck full ROM, no lymphadenopathy and supple General: Negative for tenderness Chest Wall inspection of chest normal and palpation of chest normal Resp normal respiratory effort, no retractions and clear to auscultation bilaterally Effort and Inspection: Negative for pain with movement Auscultation: Negative for rales, rhonchi or wheezes Cardio regular rate, regular rhythm, S1 normal heart sound, S2 normal heart sound and no murmurs Rate: Negative for bradycardia or tachycardic GI non-tender, non-distended and no masses Inspection: Negative for abdominal distention Auscultation: normoactive bowel sounds Palpation: soft; Negative for guarding or rebound tenderness present Back/Spine no CVA tenderness General Back: Negative for CVA tenderness, erythema, ecchymosis, swelling or tenderness Cervical Spine: Negative for cervical spine tenderness Thoracic Spine / Upper Back: Negative for ROM limited Lumbar Spine / Lower Back: Negative for lumbar spinal tenderness or paraspinal muscle tenderness Neuro oriented x3, CN's II-XII intact bilaterally, moves all extremities and no focal motor deficits Sensorium / Orientation: alert, oriented to person, oriented to place and oriented to time; Negative for orientation impaired, confused, lethargic or stuporous Motor Exam: strength 5/5 throughout; Negative for general weakness or strength abnormal Psych mental status grossly normal and thought process normal Appearance: Negative for unkempt Attitude: No agitated Mood & Affect: Negative for depressed, anxious or tearful Skin Rashes: no rashes Trauma: Negative for abrasion or laceration MDM MDM MDM Narrative Medical decision making narrative: 83-year-old female has fallen 3 times at home the last 2 weeks. Family thinks she might have a UTI due to her mental status change. Her exam is pretty benign. Obtaining a CT of her brain to rule out intracranial bleed which I think is very unlikely. She is not on thinners. She did have a significant trauma to her head. Screening labs. Urine to rule out a UTI. Left hip and pelvis x-ray and a left knee x-ray even though I think they are just most likely contused. Repeat exams unchanged. At 130 nursing to walk the patient and she had great difficulty walking. She would have felt they were not at her sides. Discussed this with family we know of a specific reason for her worsening ataxia. It may be medication related. There is no signs of infection. There is no current signs of a stroke. I spoke to the hospitalist and she will be admitted for further evaluation. Family is comfortable with the plan. History & Record Review Discussion w/independent historian: Patient and Family Additional record(s) reviewed:: Prior inpatient record, Prior outpatient record and Prior labs Lab Data Attestation: I reviewed the patient's lab results. Lab results narrative: CBC shows a white count of 5. H&H 12 and 39. Platelets 241. The CBC is unremarkable. Electrolytes show gap 4. Normal BUN of 17 creatinine of 1. Liver enzymes normal. UA normal. No white or red cells. No nitrates or bacteria. Labs: Laboratory Results - last 24 hr 11/05/23 11/05/23 11:15 11:57 WBC 5.3 RBC 4.14 L Hgb 12.3 Hct 39.8 MCV 96.1 MCH 29.7 MCHC 30.9 L RDW Std Deviation 54.4 H RDW Coeff of Sasha 15.3 H Plt Count 241 MPV 9.8 Immature Gran % (Auto) 0.200 Neut % (Auto) 66.3 Lymph % (Auto) 21.3 [place] % (Auto) 7.3 Eos % (Auto) 4.5 Baso % (Auto) 0.4 Absolute Neuts (auto) 3.5 Absolute Lymphs (auto) 1.13 Nucleated RBC % 0 Sodium 143 Potassium 3.8 Chloride 108 H Carbon Dioxide 31.0 Anion Gap 4 L BUN 17 Creatinine 1.05 H Est GFR (MDRD) Af Amer 64 Est GFR (MDRD) Non-Af 53 L BUN/Creatinine Ratio 16.2 Glucose 103 Calcium 8.9 Total Bilirubin 0.50 AST 18 ALT 10 L Alkaline Phosphatase 93 Total Protein 7.2 Albumin 3.4 Globulin 3.8 Albumin/Globulin Ratio 0.9 Urine Color Yellow Urine Clarity Sl. Cloudy Urine pH 5.0 Ur Specific [place] 1.020 Urine Protein 30 H Urine Glucose (UA) Normal Urine Ketones 5 H Urine Occult Blood 10 H Urine Nitrite Negative Urine Bilirubin Negative Urine Urobilinogen Normal Ur Leukocyte Esterase Negative Urine RBC 0-5 SEEN Urine WBC 0-5 SEEN Ur Squamous Epith Cells 0-5 SEEN Urine Bacteria 0 SEEN Urine Mucus 0 SEEN Radiography Diagnostic Testing: Clinical Impression(s) from Imaging Studies Brain CT 11/05/23 11:01 IMPRESSION: Chronic involutional changes of the brain. Electronically Signed: Tonny Tee MD at 12:01 EDT , Knee X-Ray 11/05/23 11:01 IMPRESSION: Status post left total knee replacement. There is good alignment. Residual soft tissue swelling and a joint effusion. Electronically Signed: Tonny Tee MD at 12:03 EDT , Hip/Pelvis X-Ray 11/05/23 11:40 IMPRESSION: Arthritis of both hip joints worse on the right side with right femoral acetabular impingement. Electronically Signed: Tonny Tee MD at 12:08 EDT , Left hip and pelvis x-ray multiple views interpreted by myself and the radiologist, 3 views, shows chronic changes. Arthritis. No fracture. Left knee x-ray multiple views interpreted by myself and the radiologist, 4 views shows no acute abnormality. Well-appearing prior prosthetic knee. Rhythm Strip Rhythm Strip: Sinus Rhythm Rate: 68 Ectopy: None EKG Initial EKG: Attestation: I personally reviewed and interpreted this EKG as follows: Interpretation: Sinus Rhythm and No Acute Injury Pattern Comments: Normal sinus rhythm rate of 68 no acute [place] or ischemia. Low voltage. Discharge Plan Triage Chief Complaint: Fall ED Provider: Pérez Coronado Dx/Rx/DC Orders Clinical Impression: History of Parkinson's disease, Unable to ambulate, Fall Prescriptions: No Action pantoprazole 40 mg tablet,delayed release (DR/EC) 40 mg PO BID Qty: 60 6RF carbidopa-levodopa 1 EACH tablet 1.5 tab PO 4X/DAY amlodipine 2.5 mg tablet 2.5 mg PO DAILY Patient Comments: TAKE 1 TABLET BY MOUTH EVERY DAY atorvastatin 40 mg tablet 40 mg PO QHS Patient Comments: TAKE 1 TABLET BY MOUTH EVERYDAY AT BEDTIME levothyroxine 50 mcg tablet 50 mcg PO DAILY Patient Comments: TAKE 1 TABLET BY MOUTH ONCE DAILY. TAKE ON EMPTY STOMACH. FOR THYROID. meloxicam 15 mg tablet 15 mg PO DAILY Patient Comments: TAKE 1 TABLET BY MOUTH EVERY DAY potassium chloride [Klor-Con 10] 10 mEq tablet extended release 10 meq PO DAILY Patient Comments: TAKE 1 TABLET BY MOUTH EVERY DAY WITH BREAKFAST acetaminophen 500 mg Tablet 1,000 mg PO Q8 Qty: 1 0RF Rx Instructions: Take 1,000 mg every 8 hours for 1-2 weeks and as the pain gets better you can convert to taking it every 8 hours as needed. paroxetine HCl 20 mg Tablet 20 mg PO DAILY Qty: 30 0RF cholecalciferol (vitamin D3) 25 mcg (1,000 unit) Tablet 50 mcg PO DAILY Qty: 60 12RF nystatin 100,000 unit/mL Suspension 500,000 unit PO 4X/DAY Qty: 200 0RF Rx Instructions: 1 teaspoon 4 X's a day.....swish and swallow for thrush tramadol 50 mg Tablet 50 mg PO Q6H PRN PRN (Reason: Pain Score 1-5) Qty: 28 0RF Primary Care Provider: Sanchez Lacey Referrals: Sanchez Lacey MD [Primary Care Provider] - Disposition Disposition: Acute Care Hospital [facility]
[2023-11-05 11:24] LABS: Absolute Lymphocyte Count 1.13 X10^3/uL (0.83-4.51); Absolute Neutrophil Count 3.5 X10^3/uL (2.0-7.7); Basophil# 0.02 X10^3/uL; Basophil% 0.4 % (0-1); Eosinophil# 0.24 X10^3/uL; Eosinophils% 4.5 % (0-5); Hematocrit 39.8 % (37-47); Hemoglobin 12.3 g/dL (12.0-15.0); Lymphocyte # 1.13 X10^3/ul (0.83-4.51); Lymphocyte % 21.3 % (19-41); Mean Corp Hgb Conc 30.9 g/dL (32-36); Mean Corpuscular Hgb 29.7 pg (27.0-32.0); Mean Corpuscular Volume 96.1 fL (81-99); Mean Platelet Vol. 9.8 fl (6.2-12.0); Monocyte# 0.39 X10^3/uL; Monocyte% 7.3 % (0-10); NRBC Flagged by Analyzer 0 % (0-5); Neutrophil # 3.52 X10^3/uL (2.7-7.7); Neutrophil % 66.3 % (47-70); Platelet Count 241 K/mm3 (150-450); RBC Distribution Width CV 15.3 % (11.6-14.6); RBC Distribution Width SD 54.4 fl (35.1-43.9); Red Blood Count 4.14 M/mm3 (4.2-5.4); White Blood Count 5.3 K/mm3 (4.4-11.0)
[2023-11-05 11:40] LABS: ALB/GLOB Ratio 0.9 RATIO (0.9-2.4); AST(SGOT) 18 U/L (15-37); Alanine Aminotransfer ALT/SGPT 10 U/L (13-56); Albumin, Serum 3.4 g/dL (3.2-5.0); Alkaline Phosphatase 93 U/L (45-117); Anion Gap 4 (5-15); BUN 17 mg/dL (7-18); BUN/Creat Ratio 16.2 RATIO (10-20); Calcium,Total 8.9 mg/dL (8.5-10.1); Chloride 108 mmol/L (98-107); Creatinine, Serum 1.05 mg/dL (0.55-1.02); EST Glomerular Filtration Rate 53 mL/min (>60); Est Glom Filt Rate - Afr Amer 64 mL/min (>60); Globulin 3.8 g/dL (2.2-4.2); Glucose 103 mg/dL (74-106); Potassium 3.8 mmol/L (3.5-5.1); Protein, Total 7.2 g/dL (6.4-8.2); Sodium Level 143 mmol/L (136-145)
--- NOTE | 2023-11-05 11:40 | RAD_ITS ---
STUDY: X-RAY - PELVIS AND LEFT HIP REASON FOR EXAM: Female, 83 years old. Fall w/ left hip pain TECHNIQUE: 3 views of the pelvis and hip. COMPARISON: None. FINDINGS: Large amount of fecal material is seen in the colon. Bilateral tubal ligation clips. Degenerative changes of the lower lumbar spine. Normal bilateral iliac wings, sacroiliac joints and visualized sacrum. Normal bilateral superior and inferior pubic rami. Normal pubic symphysis. Normal bilateral ischial tuberosities. Normal visualized femoral head. Normal acetabulum. is severe articular joint space narrowing of the hip. Marked degree of joint space and of the right hip joint with femoral spurs. There is evidence of a right femoral acetabular impingement. RAD/HIP, UNI W/ Pelvis 2-3 Views IMPRESSION: Arthritis of both hip joints worse on the right side with right femoral acetabular impingement. Electronically Signed: Tonny Tee MD at 12:08 EDT ,
[2023-11-05 12:05] LABS: Bacteria 0 SEEN /hpf (None Seen); Mucous, Urine 0 SEEN /hpf (<or=2+)
[2023-11-05 12:12] LABS: Color, Urine Yellow (Yellow); Glucose, Dipstick Normal (Normal); Ketone-Dipstick 5 mg/dl (Negative); Leukocyte Esterase-Dipstick Negative /ul (Negative); Nitrite-Dipstick Negative (Negative); Occult Blood-Urine 10 /ul (Negative); Protein-Dipstick 30 mg/dl (Negative); Urine Bilirubin Dipstick Negative (Negative); Urine Clarity Sl. Cloudy (Clear); Urine Urobilinogen Normal (Normal)
[2023-11-05 12:18] LABS: Red Blood Cells-Urine 0-5 SEEN /hpf (0-5); Squamous Epithelial Cells - UA 0-5 SEEN /hpf (5-10); White Blood Cells 0-5 SEEN /hpf (0-5)
--- NOTE | 2023-11-05 13:41 | NURSING ---
DR CAMILO VERNON
--- NOTE | 2023-11-05 13:53 | NURSING ---
ICU OBS JOPPERI UNABLE TO WALK, PARKINSONS, FALLS
--- NOTE | 2023-11-05 13:58 | HP.PCM.HOS_ITS ---
[facility] - General General Date of Service: 11/05/23 Chief Complaint: Weakness HPI Narrative SILVIANO WU, is a 83 F who presents with weakness. Patient was in her normal state of health on Thursday and [place] the [place] indoor [place] her rollator. provided video evidence of that for me. But starting Thursday was feeling weak and then yesterday had fell in the bathroom. With her profound weakness, they sent her to the emergency room. Workup in the emergency room was unremarkable. They tried a walker but she was unable to do so. The hospital service was contacted for admission. REPLACED BY [facility] Medical History Alcohol use Arthritis Chronic cough Chronic renal failure, stage 3a Depression DVT (deep venous thrombosis) Eosinophilia Former smoker Gastric reflux GERD (gastroesophageal reflux disease) Hiatal hernia History of edema History of Holter monitoring History of pain when walking History of steroid therapy History of stress test Hypertension Hypocalcemia Hypokalemia Hypothyroidism Kidney stone Osteoarthritis of left knee Parkinson's disease Post-menopausal Pyloric stenosis Thyroid disease Wears glasses Wears partial dentures Home Medications carbidopa 25 mg-levodopa 100 mg tablet 1.5 tab PO 4X/DAY Parkinson 11/15/19 [History Last Taken 04/28/23] amlodipine 2.5 mg tablet 2.5 mg PO DAILY Blood Pressure 04/06/23 [History Last Taken 04/28/23] atorvastatin 40 mg tablet 40 mg PO QHS Cholesterol 04/06/23 [History Last Taken 04/27/23] levothyroxine 50 mcg tablet 50 mcg PO DAILY Thyroid 04/06/23 [History Last Taken 04/28/23] meloxicam 15 mg tablet 15 mg PO DAILY Arthritis 04/06/23 [History Last Taken 04/26/23] potassium chloride 10 mEq tablet,extended release (Klor-Con) 10 meq PO DAILY supplement 04/06/23 [History Last Taken 04/28/23] acetaminophen 500 mg tablet 1,000 mg (2 x 500 mg) PO Q8 #1 TAB 05/08/23 [Rx Last Taken Unknown] cholecalciferol (vitamin D3) 25 mcg (1,000 unit) tablet 50 mcg (2 x 25 mcg (1,000 unit)) PO DAILY #60 tabs 05/08/23 [Rx Last Taken Unknown] nystatin 100,000 unit/mL oral suspension 500,000 unit (5 mL) PO 4X/DAY #200 mL 05/08/23 [Rx Last Taken Unknown] paroxetine HCl 20 mg tablet 20 mg PO DAILY #30 tabs 05/08/23 [Rx Last Taken Unknown] tramadol 50 mg tablet 50 mg PO Q6H PRN PRN Pain Score 1-5 #28 tabs 05/08/23 [Rx Last Taken Unknown] pantoprazole 40 mg tablet,delayed release 40 mg PO BID #60 tabs 06/15/23 [Rx Last Taken Unknown] Allergy/AdvReac Type Severity Reaction Status Date / Time No Known Allergies Allergy Verified 11/05/23 10:46 Family History (Updated 11/05/23 @ 14:[address] Santosh Wang DO) Other Heart disease Surgical History History of carpal tunnel surgery of right wrist Hx of bilateral cataract extraction Hx of tubal ligation Status post left knee replacement Status post total left knee replacement Social History household members: spouse Smoking Status: Former smoker alcohol intake: current details: Social. substance use type: does not use ROS ROS Narrative Tremulousness from Parkinson's. Does have urinary urgency at baseline. All review of systems were negative except as mentioned above in the history of present illness and the other review of systems. Vital Signs Vital Signs Vital Signs: 11/05/23 10:46 11/05/23 11:03 11/05/23 12:45 Temperature 36.6 C Temperature Source Temporal Pulse Rate 71 68 Respiratory Rate 16 18 Respiratory Effort Normal Non-Labored Respiratory Depth Normal Respiratory Pattern Normal Blood Pressure 147/90 H 130/70 H Blood Pressure Mean 109 90 Pulse Ox 100 97 Oxygen Delivery Method Room Air Room Air Physical Exam Const alert and no apparent distress Constitutional Narrative: Upper extremity tremors HEENT normocephalic, head/scalp atraumatic, hearing grossly normal bilaterally and moist oral mucous membranes Neck no lymphadenopathy Resp normal respiratory effort, no retractions, no use of accessory muscles and clear to auscultation bilaterally Cardio regular rate, regular rhythm, S1 normal heart sound and S2 normal heart sound GI normal to inspection, nondistended, normoactive bowel sounds, soft to palpation, non-tender and non-distended Extremity normal to inspection and full ROM Neuro Sensorium / Orientation: awake and alert Psych affect normal Results Lab / Micro Data 11/05/23 11:15 11/05/23 11:15 Labs: Laboratory Results - last 24 hr 11/05/23 11:15: WBC 5.3, RBC 4.14 L, Hgb 12.3, Hct 39.8, MCV 96.1, MCH 29.7, MCHC 30.9 L, RDW Std Deviation 54.4 H, RDW Coeff of Sasha 15.3 H, Plt Count 241, M PV 9.8, Immature Gran % (Auto) 0.200, Neut % (Auto) 66.3, Lymph % (Auto) 21.3, [place] % (Auto) 7.3, Eos % (Auto) 4.5, Baso % (Auto) 0.4, Absolute Neuts (auto) 3.5, Absolute Lymphs (auto) 1.13, Nucleated RBC % 0, Sodium 143, Potassium 3.8, Chloride 108 H, Carbon Dioxide 31.0, Anion Gap 4 L, BUN 17, Creatinine 1.05 H, Est GFR (MDRD) Af Amer 64, Est GFR (MDRD) Non-Af 53 L, BUN/Creatinine Ratio 16.2, Glucose 103, Calcium 8.9, Total Bilirubin 0.50, AST 18, ALT 10 L, Alkaline Phosphatase 93, Total Protein 7.2, Albumin 3.4, Globulin 3.8, Albumin/Globulin Ratio 0.9 11/05/23 11:57: Urine Color Yellow, Urine Clarity Sl. Cloudy, Urine pH 5.0, Ur Specific [place] 1.020, Urine Protein 30 H, Urine Glucose (UA) Normal, Urine Ketones 5 H, Urine Occult Blood 10 H, Urine Nitrite Negative, Urine Bilirubin Negative, Urine Urobilinogen Normal, Ur Leukocyte Esterase Negative, Urine RBC 0-5 SEEN, Urine WBC 0-5 SEEN, Ur Squamous Epith Cells 0-5 SEEN, Urine Bacteria 0 SEEN, Urine Mucus 0 SEEN Rhythm Strip Rhythm Strip: Sinus Rhythm Rate: 68 Ectopy: None Imaging Radiology Impression Brain CT 11/05/23 11:01 IMPRESSION: Chronic involutional changes of the brain. Electronically Signed: Tonny eTe MD at 12:01 EDT , Knee X-Ray 11/05/23 11:01 IMPRESSION: Status post left total knee replacement. There is good alignment. Residual soft tissue swelling and a joint effusion. Electronically Signed: Tonny Tee MD at 12:03 EDT , Hip/Pelvis X-Ray 11/05/23 11:40 IMPRESSION: Arthritis of both hip joints worse on the right side with right femoral acetabular impingement. Electronically Signed: Tonny Tee MD at 12:08 EDT , Assessment & Plan Assessment/Plan (1) Debility: PLAN: Plan Debility * Likely multifactorial with patient's known Parkinson's disease, limited baseline performance status as patient does use a rollator at baseline, no obvious other source of infection though specific gravity on urinalysis was slightly elevated. * Will give the patient some IV fluids. Though I do not suspect this is can be enough to improve her enough to her baseline. * PT OT evaluate and treat * Case management to assist. * Sound like the patient has a good support network at home with her but it is unclear if patient will be able to go home directly from the hospital or not or if she would require half-way facility. * Patient was recently started on a memory pill. But that was initiated about 2 weeks ago. I do not feel that that was the cause of this weakness. Parkinson's disease * Continue with Sinemet Other chronic conditions * Hypothyroidism: Continue with levothyroxine * Depression: Continue with paroxetine * Hyperlipidemia: Continue with amlodipine * Hyperlipidemia: Continue statin VTE prophylaxis not indicated given current observation status CODE STATUS: Addressed with the patient. Patient wished to be full code.
[2023-11-05] MEDS: 0.9% Normal Saline (1000mL) 1,000 ML 150 ML IV (20:34)
[2023-11-05] MEDS: Carbidopa/Levodopa 25/100 Tablet PO (23:05)
[2023-11-05] MEDS: Atorvastatin Calcium 40 MG Tablet PO (23:05)
[2023-11-05] MEDS: Donepezil HCl 10 MG Tablet PO (23:05)
[2023-11-05] MEDS: Acetaminophen 500 MG Tablet 1000 MG PO (23:05)
[2023-11-06 04:04] VITALS: BP 125/69; PULSE 64; RESP 18; TEMP 36.6; O2SAT 97
[2023-11-06] MEDS: Acetaminophen 500 MG Tablet 1000 MG PO (06:42)
[2023-11-06] MEDS: Levothyroxine 50 MCG Tablet PO (06:42)
[2023-11-06 08:31] VITALS: BP 133/52; PULSE 76; RESP 18; TEMP 35.9; O2SAT 94
[2023-11-06] MEDS: Paroxetine 20 MG Tablet PO (08:37)
[2023-11-06] MEDS: Pantoprazole Sodium 40 MG Tablet PO (08:37)
[2023-11-06] MEDS: Cholecalciferol (VIT D3) 25 MCG TABLET (1,000 UNITS) 50 MCG PO (08:38)
[2023-11-06] MEDS: Potassium Chloride Oral Tablet 10 MEQ PO (08:38)
[2023-11-06] MEDS: amLODIPine 2.5 MG Tablet PO (08:39)
[2023-11-06] MEDS: Meloxicam 15 MG Tablet PO (08:39)
[2023-11-06] MEDS: Carbidopa/Levodopa 25/100 Tablet PO (10:26)
--- NOTE | 2023-11-06 12:55 | CASEMGMT ---
JAVI CM into pt room, pt and dtr present. Pt [place]. She is already set up at [facility] and does not need a new rx. Pt states that she has some good days and some bad days. She has a rollator at home and has been going to the [employer] daily to walk. She is getting a lift chair. Pt needs 's assist for bathing and dressing at times. Pt does the meals, groceries and laundry. Pt denies any homegoing needs.
--- NOTE | 2023-11-06 13:03 | PCM.DC.SUM ---
Providers Date of Admission: 11/05/23 Date of Discharge: 11/06/23 Primary Care Physician: Dr. Sanchez Lacey MD Reason For Visit: DEBILITY Diagnosis Discharge Diagnosis (1) Debility: Status: Acute Code(s): R53.81 - Other malaise Medications at Discharge Home Medications carbidopa 25 mg-levodopa 100 mg tablet 1.5 tab PO 4X/DAY Parkinson 11/15/19 amlodipine 2.5 mg tablet 2.5 mg PO DAILY Blood Pressure 04/06/23 atorvastatin 40 mg tablet 40 mg PO QHS Cholesterol 04/06/23 levothyroxine 50 mcg tablet 50 mcg PO DAILY Thyroid 04/06/23 meloxicam 15 mg tablet 15 mg PO DAILY Arthritis 04/06/23 potassium chloride 10 mEq tablet,extended release (Klor-Con) 10 meq PO DAILY supplement 04/06/23 acetaminophen 500 mg tablet 1,000 mg (2 x 500 mg) PO Q8 #1 TAB 05/08/23 paroxetine HCl 20 mg tablet 20 mg PO DAILY #30 tabs 05/08/23 alendronate 70 mg tablet 70 mg PO SCHAEFER 11/05/23 donepezil 10 mg tablet 10 mg PO QHS 11/05/23 pantoprazole 40 mg tablet,delayed release 40 mg PO DAILY 11/05/23 Hospital Course Operations None Procedures EKG and - (CT brain/knee x-ray/hip and pelvic x-ray) Summary of Care Provided Minutes Spent on Discharge: 37 Hospital Course: Patient is an 83-year-old white female who presented to emergency department at [facility] on 11/05/2023 for generalized weakness and inability to ambulate. The patient has a history of left knee replacement and Parkinson's disease. Her reported she had fallen about 3 times in the last 2 weeks and they feel that her mental status had changed a little bit. They saw neurologist 2 weeks ago and she had been doing fine. She was started on donepezil not that long ago for her memory. Family was concerned potentially she had a urinary tract infection or another etiology that was causing worsening of her symptoms. She has urinary urgency and incontinence at baseline. Vital signs on presentation showed temperature of 36.6, heart rate 71, respiratory 16, blood pressure was 147/90 oxygen saturations were 100% on room air. Her CBC was essentially unremarkable. Her chemistry panel was unremarkable. Liver functions were normal. Bilirubin was normal. Her UA was not suggestive of infection however she did appear to be mildly hydrated with specific gravity of 1.02. CT of the brain showed chronic involutional changes but no acute findings. Knee and hip and pelvic x-rays were performed secondary to fall and demonstrated no acute fractures or soft tissue abnormalities noted. She does appear to have arthritic changes in both hip joints. And right femoral acetabular impingement was noted. She was given some IV fluids and admitted to the medical floor. Physical and Occupational Therapy were consulted and evaluated her and felt she did quite well. Within 12 hours of admission she was feeling much better. Her felt that her functional status had improved enough that she could come home and she would continue her outpatient therapy and daily walking at the goal. I did review with her the importance of continuing her exercise regimen and maintaining her current strength and hopefully improving her strength some. She is to use her wheeled walker at all times. We will hold her donepezil for about 2 weeks to see if this does not help with her strength. Family is going to reevaluate her to see if this makes difference and then decide whether or not to reinitiate the medication. With improvement since admission we were able to discharge home in stable condition on 11/06/2023. I advised her to follow-up with her primary care physician within the next week. Discharge plan was reviewed with the patient, her , and her daughter. Discharge diagnoses: Generalized weakness Falls Debility secondary to multifactorial reasons including Parkinson's disease, dementia, and osteoarthritis Parkinson's disease Dementia Hypothyroidism Depression Hyperlipidemia Hypertension Physical Exam Const alert, oriented x3, no apparent distress, average body habitus, no limitations and well nourished Constitutional Narrative: Elderly, white female, sitting up in bed and then up in a chair at bedside, appears comfortable, nontoxic, resting tremor noted, at bedside General Appearance: cooperative, comfortable, well kempt and well developed Orientation / Consciousness: awake, oriented to person, oriented to place and oriented to time Exam Limitations: no limitations HEENT normocephalic, head/scalp atraumatic and hearing grossly normal bilaterally HEENT Narrative: Mallampati is 2, no thrush Eyes PERRL, EOMs intact bilaterally and conjunctivae normal Eyes Narrative: No scleral icterus Neck no lymphadenopathy and supple Neck Narrative: Trachea midline, no thyroid enlargement Resp normal respiratory effort, no retractions, no use of accessory muscles and clear to auscultation bilaterally Auscultation: Negative for rales, rhonchi or wheezes Cardio regular rate, regular rhythm, S1 normal heart sound, S2 normal heart sound, no murmurs, no rub, no gallops and no clicks GI normal to inspection, nondistended, normoactive bowel sounds, soft to palpation and non-tender Extremity no clubbing, cyanosis or edema Extremity Narrative: 2+ pedal pulses, well-healed incision on left knee with mild soft tissue swelling residual from her knee replacement Skin no wounds, skin turgor normal and no jaundice Skin Narrative: Few scattered ecchymosis Neuro oriented x3, CN's II-XII intact bilaterally, moves all extremities and no focal motor deficits Neuro Narrative: Patient with generalized weakness-proximal greater than distal, resting tremor noted, mildly masked facies, response times are slightly delayed but overall appropriate Psych affect normal Psych Narrative: Very pleasant, interacts appropriately Weight / BMI Weight Weight: 73.845 kg Body Mass Index (BMI) 28.8 ABG / Lab / Microbiology Data 11/05/23 11:15 11/05/23 11:15 D/C Instructions Discharge Diet: Low fat / Low cholesterol Discharge Activity: Return to Normal Activity Meaningful Use Info Meaningful Use Meaningful Use Diagnoses (Choose all that apply): None applicable Ischemic Stroke Statin Dosing Therapy Reference: STATIN DOSE THERAPY REFERENCE: * Patients > 75 years receive moderate or high dose statin therapy. * Patients 75 years or YOUNGER should receive HIGH intensity statin dose unless contraindicated. You will be required to document reason for non-treatment if statin daily dose does not meet guidelines. HIGH DOSE STATIN THERAPY DAILY Atorvastatin > than or = to 40 mg Rosuvastatin > than or = to 20 mg Amlodipine + Atorvastatin > than or = to 2.5/40 mg Ezetimibe + Simvastatin 10/80 mg Simvastatin 80mg Discharge Plan Admission Admit Date/Time: 11/05/23 13:42 Primary Reason for Your Visit: Weakness Attending Provider: Marimar Mueller Primary Care Provider: Sanchez Lacey Consulting Providers: Santosh Wang Instructions Additional Instructions / Restrictions: 1. Hold donepezil for at least 2 weeks to see if it makes a difference in strength 2. Continue exercise program. If you do not you will lose the strength you have and not develop any more and continue to get weaker and weaker. Discharge Orders/Prescriptions Prescriptions: Continued carbidopa-levodopa 1 EACH tablet 1.5 tab PO 4X/DAY amlodipine 2.5 mg tablet 2.5 mg PO DAILY atorvastatin 40 mg tablet 40 mg PO QHS levothyroxine 50 mcg tablet 50 mcg PO DAILY Patient Comments: TAKE 1 TABLET BY MOUTH ONCE DAILY. TAKE ON EMPTY STOMACH. FOR THYROID. meloxicam 15 mg tablet 15 mg PO DAILY potassium chloride [Klor-Con 10] 10 mEq tablet extended release 10 meq PO DAILY Patient Comments: TAKE 1 TABLET BY MOUTH EVERY DAY WITH BREAKFAST acetaminophen 500 mg Tablet 1,000 mg PO Q8 Qty: 1 0RF Rx Instructions: Take 1,000 mg every 8 hours for 1-2 weeks and as the pain gets better you can convert to taking it every 8 hours as needed. paroxetine HCl 20 mg Tablet 20 mg PO DAILY Qty: 30 0RF alendronate 70 mg tablet 70 mg PO SCHAEFER pantoprazole 40 mg tablet,delayed release (DR/EC) 40 mg PO DAILY Held donepezil 10 mg tablet 10 mg PO QHS Hold Instructions: I would hold this and see if it makes a difference-would hold for at least 2 weeks Discontinued donepezil 5 mg tablet 5 mg PO QHS Referrals / Follow Up: Sanchez Lacey MD [Primary Care Provider] - Within 1 Week Disposition Disposition (needs filled in before D/C Order can be placed): Home, Self Care Charges/Coding Visit Charges Inpatient E&M: 74164 Disch Hosp >30min
[2023-11-06 14:31] VITALS: BP 112/85; PULSE 87; RESP 16; TEMP 36.6; O2SAT 95
--- NOTE | 2023-11-06 14:53 | PHA.DC.MR.R ---
Pharmacy MS Med Reconciliation Pharmacy Service has performed discharge medication reconciliation for this patient. The patient's discharge medication list was reviewed for discrepancies and discrepancies were resolved. Medications at Discharge Home Medications carbidopa 25 mg-levodopa 100 mg tablet 1.5 tab PO 4X/DAY Parkinson 11/15/19 amlodipine 2.5 mg tablet 2.5 mg PO DAILY Blood Pressure 04/06/23 atorvastatin 40 mg tablet 40 mg PO QHS Cholesterol 04/06/23 levothyroxine 50 mcg tablet 50 mcg PO DAILY Thyroid 04/06/23 meloxicam 15 mg tablet 15 mg PO DAILY Arthritis 04/06/23 potassium chloride 10 mEq tablet,extended release (Klor-Con) 10 meq PO DAILY supplement 04/06/23 acetaminophen 500 mg tablet 1,000 mg (2 x 500 mg) PO Q8 #1 TAB 05/08/23 paroxetine HCl 20 mg tablet 20 mg PO DAILY #30 tabs 05/08/23 alendronate 70 mg tablet 70 mg PO SCHAEFER 11/05/23 donepezil 10 mg tablet 10 mg PO QHS 11/05/23 pantoprazole 40 mg tablet,delayed release 40 mg PO DAILY 11/05/23
== END 2023-11-06 15:44 | disposition home or self-care (01) ==
LOC: ED 13:47 → MS3 14:26
PROVIDERS: Emergency Provider Emergency Medicine; PCP Internal Medicine; Visit Provider Internal Medicine
DX: R53.1 Weakness (principal); G20.A1 Parkinson's disease without dyskinesia, without mention of fluctuations; F02.80 Dementia in other diseases classified elsewhere, unspecified severity, without behavioral disturbance, psychotic disturbance, mood disturbance, and anxiety; N18.31 Chronic kidney disease, stage 3a; R53.81 Other malaise; Z96.652 Presence of left artificial knee joint; I12.9 Hypertensive chronic kidney disease with stage 1 through stage 4 chronic kidney disease, or unspecified chronic kidney disease; S09.90XA Unspecified injury of head, initial encounter; R32 Unspecified urinary incontinence; Z87.891 Personal history of nicotine dependence; E03.9 Hypothyroidism, unspecified; R10.2 Pelvic and perineal pain; R26.2 Difficulty in walking, not elsewhere classified; E78.5 Hyperlipidemia, unspecified; R29.6 Repeated falls; Z79.899 Other long term (current) drug therapy; Z79.890 Hormone replacement therapy; W19.XXXA Unspecified fall, initial encounter; Y92.89 Other specified places as the place of occurrence of the external cause
CPT/HCPCS: 70450; 73502; 73564; 80053; 81001; 85025; 93005; 96360; 96361; 97162; 97166; 99221; 99284; J7030; G0378

== ENCOUNTER 2025-06-19 08:42 | Inpatient (IN) | payer MEDICARE, OTHER, SELFPAY ==
[2025-06-19] VITALS (9 sets, daily range): BP systolic 127–175; BP diastolic 70–106; PULSE 73–87; RESP 16–20; TEMP 36.2–37.4; O2SAT 92–99; BMI 29.5
--- NOTE | 2025-06-19 09:12 | RAD_ITS ---
PROCEDURE: CHEST 1 VIEW (PORTABLE) 06/19/2025 REASON FOR EXAM: WEAKNESS, MILD COUGH TECHNIQUE: Frontal view of the chest. COMPARISON: 05/01/2023 FINDINGS: Hardware: None Heart: Mild cardiomegaly. Tortuous atherosclerotic aorta. Lungs: The lungs are hypoinflated but clear. There is no focal consolidation or effusion. Bones: Multilevel spondylosis and degenerative disc disease. RAD/Chest 1 View (Portable) IMPRESSION: Low lung volumes. No acute cardiopulmonary process. Reading Location: [id number]
--- NOTE | 2025-06-19 09:12 | CT_ITS ---
PROCEDURE: BRAIN/HEAD WITHOUT CONTRAST 06/19/2025 REASON FOR EXAM: MENTAL STATUS CHG History of fall. TECHNIQUE: Procedure Code: CTBR Modality: CT Procedure: BRAIN/HEAD WITHOUT CONTRAST Coronal and Sagittal reconstruction series were provided. One or more dose reduction techniques were used (e.g., Automated exposure control, adjustment of the mA and/or kV according to patient size, use of iterative reconstruction technique. RADIATION DOSE SUMMARY: CTDlvol: 44.99 mGy DLP: 779.24 mGycm COMPARISON: November 05, 2023. FINDINGS: Brain: Low density in the periventricular white matter suggests mild chronic small vessel ischemic changes. Tiny calcifications in the basal ganglia bilaterally. This is a normal variant for the patient's age. Atherosclerotic calcification of the cavernous portions of the internal carotid arteries bilaterally. CSF Spaces: Moderate generalized cerebral atrophy cerebellar atrophy. Sinuses/Mastoids: Partial opacification of the ethmoid sinuses. Small air-fluid levels in both maxillary sinuses. Bones: No bony abnormality is seen. CT/Brain/Head without Contrast IMPRESSION: CHRONIC CHANGES. NO ACUTE FINDINGS. Sinusitis. Reading Location: [place] [address]
--- NOTE | 2025-06-19 09:13 | EKG12_ITS ---
Test Reason : Blood Pressure : */* mmHG Vent. Rate : 82 BPM Atrial Rate : 82 BPM P-R Int : 184 ms QRS Dur : 74 ms QT Int : 396 ms P-R-T Axes : 58 51 75 degrees QTcB Int : 462 ms Normal sinus rhythm Baseline wander/artifact Confirmed by Isac Srinivasan ([id number]), editorial intern JOVANNY ALCARAZ ([id number]) on 06/21/2025 1:04:05 PM Referred By: Confirmed By: Isac Srinivasan
--- NOTE | 2025-06-19 09:15 | EX.ED.DYSGE1 ---
HPI History of Present Illness Chief Complaint: Fall Informant: patient, spouse/S.O., family and EMS Narrative Narrative: Patient is an 84-year-old female with a history of Parkinson's disease and dementia, presenting with weakness, confusion, and headache. Patient is accompanied by her daughter and , who are providing history on her behalf. - Reports significant weakness and confusion beginning last night. Hx of parkinson's dementia and sundowning, but sx worse & persistent this AM. - found her on the floor multiple times, unable to get up; no known falls with injury. - Weakness and confusion have worsened over the past few evenings, coinciding with sundown syndrome. - Recent episodes of possible hypotension - readings unobtainable; BP medications were discontinued 2 weeks ago due to low readings. - History of UTIs with similar symptoms of confusion and weakness. - Reports a headache; denies nausea or emesis. - Chronic rhinorrhea; denies congestion or dyspnea. - Chronic cough and snoring; denies abdominal pain. - Reports back pain for over a month. [facility] Medical History UTI (urinary tract infection) Former smoker Migraines Fall History of Parkinson's disease Pyloric stenosis Hiatal hernia Eosinophilia Hypocalcemia Chronic renal failure, stage 3a Hypokalemia Depression GERD (gastroesophageal reflux disease) Hypothyroidism Osteoarthritis of left knee Wears partial dentures Wears glasses Post-menopausal Alcohol use History of steroid therapy Thyroid disease Arthritis Kidney stone DVT (deep venous thrombosis) Gastric reflux Former smoker Chronic cough History of pain when walking History of edema History of Holter monitoring History of stress test Hypertension Parkinson's disease Home Medications ?Medication ?Instructions ?Recorded ?Last Taken ?Type carbidopa 25 mg-levodopa 100 mg 1.5 tab PO DAILY Parkinson 11/15/19 06/18/25 History tablet atorvastatin 40 mg tablet 40 mg PO QHS Cholesterol 04/06/23 06/18/25 History levothyroxine 50 mcg tablet 50 mcg PO DAILY Thyroid 04/06/23 06/18/25 History meloxicam 15 mg tablet 15 mg PO DAILY PRN Arthritis 04/06/23 06/18/25 History potassium chloride 10 mEq 10 meq PO DAILY supplement 04/06/23 06/18/25 History tablet,extended release (Klor-Con) acetaminophen 500 mg tablet 1,000 mg (2 x 500 mg) PO Q8 #1 TAB 05/08/23 Unknown Rx paroxetine HCl 20 mg tablet 20 mg PO DAILY #30 tabs 05/08/23 06/18/25 Rx alendronate 70 mg tablet 70 mg PO SCHAEFER 11/05/23 06/18/25 History donepezil 10 mg tablet 10 mg PO QHS 11/05/23 Unknown History Held on 11/06/23. Instructions: I would hold this and see if it makes a difference-would hold for at least 2 weeks buspirone 10 mg tablet 10 mg PO BID 06/19/25 06/18/25 History carbidopa 25 mg-levodopa 100 mg 2 tab PO TID parkinsons 06/19/25 06/18/25 History tablet (Sinemet) cholecalciferol (vitamin D3) 25 50 mcg PO QDAY 06/19/25 06/18/25 History mcg (1,000 unit) tablet memantine 10 mg tablet 10 mg PO BID 06/19/25 06/18/25 History mirabegron 25 mg tablet,extended 25 mg PO DAILY 06/19/25 06/18/25 History release 24 hr pantoprazole 40 mg tablet,delayed 40 mg PO DAILY 06/19/25 06/18/25 History release Allergy/AdvReac Type Severity Reaction Status Date / Time No Known Allergies Allergy Verified 06/19/25 08:55 Family History (Updated 11/05/23 @ 14:[address] Santosh Wang DO) Other Heart disease Surgical History Status post left knee replacement Status post total left knee replacement Hx of bilateral cataract extraction History of carpal tunnel surgery of right wrist Hx of tubal ligation Social History household members: spouse Smoking Status: Former smoker alcohol intake: current details: Social. substance use type: does not use ROS ROS ED Review of Systems ROS Unobtainable: due to mental status Constitutional Constitutional ED: Reports weakness Eyes Eyes: Denies change in vision ENT ENT ED: Reports rhinorrhea Respiratory/Chest Respiratory/Chest: Reports cough; Denies dyspnea Gastrointestinal Gastrointestinal: Denies abdominal pain or nausea Musculoskeletal Musculoskeletal: Reports back pain; Denies neck pain Neurologic Neurologic: Reports headache(s) EXAM Physical Exam Const Vital Signs: 06/19/25 08:52 06/19/25 08:58 06/19/25 08:59 Temperature 98.1 F Temperature Source Oral Pulse Rate 85 Respiratory Rate 20 H Respiratory Effort Normal Non-Labored Normal Non-Labored Respiratory Depth Normal Respiratory Pattern Normal Normal Blood Pressure 139/104 H Blood Pressure Mean 115 Pulse Ox 97 Oxygen Delivery Method Room Air 06/19/25 10:34 Temperature Temperature Source Pulse Rate 87 Respiratory Rate 18 Respiratory Effort Respiratory Depth Respiratory Pattern Blood Pressure 150/89 H Blood Pressure Mean 109 Pulse Ox 97 Oxygen Delivery Method Room Air Positive well nourished and well developed Constitutional Narrative: Keenly alert, fine tremor well-appearing otherwise General Appearance ED: well developed and NAD HEENT Reports moist mucous membranes HEENT Narrative: No significant sinus tenderness normocephalic and atraumatic Eyes PERRL and EOMs intact bilaterally Neck full ROM, no lymphadenopathy and supple Resp normal respiratory effort and clear to auscultation bilaterally Resp Narrative: Diminished at the bases, patient not taking deep inspirations. No respiratory distress or splinting with deep inspiration. Cardio regular rate, regular rhythm and no murmurs GI non-tender and non-distended Auscultation: normoactive bowel sounds Palpation: soft Back/Spine no CVA tenderness Back/Spine Narrative: No midline lumbar tenderness. No rashes. General Back: other FROM Extremity normal to inspection General Extremety ED: Negative for edema, pulses abnormal or tenderness General Extremity: Negative for edema or pulses abnormal Neuro CN's II-XII intact bilaterally and no sensory deficits noted Neuro Narrative: Oriented to person. Sensorium / Orientation: awake, alert and orientation impaired Motor Exam: general weakness Psych mental status grossly normal Skin no rashes or lesions noted and no wounds MDM MDM MDM Narrative Medical decision making narrative: Patient is encephalopathic. She has a Parkinson?s tremor but is otherwise non-focal and generally weak. On exam, her vital signs are normal except for mild hypertension, with systolic readings fluctuating between the 130s and about 160 throughout her stay. A catheterized urine specimen shows no signs of infection on urinalysis. Her labs are generally normal. She has very mild pre-renal azotemia (BUN 20, creatinine 1.06), which is not sufficient to explain her weakness or her inability to stand independently, even with family assistance. Her lactate is normal, arguing against sepsis, and her liver enzymes are normal. A single-view chest X-ray appears normal by my interpretation, with radiology agreeing there is no pneumonia. EKG is normal, and her troponin is normal, ruling out acute coronary syndrome. Head CT shows no acute intracranial abnormality but incidentally reveals sinusitis. She reports rhinorrhea, congestion, and some nasal/facial discomfort, suggesting possible acute sinusitis. She does not have purulent discharge, and there is no other apparent cause of her weakness apart from a possible relationship to her Parkinson?s, which, according to her family, has not caused this degree of debility before. Antibiotic treatment covering for possible bacterial sinusitis is warranted. Given her significant weakness, admission to the hospital is indicated. I have discussed this plan with the hospitalist. Portions of this note were generated using voice recognition software (Intelligroupation). I have reviewed the contents and every effort has been made to ensure accuracy; however, inadvertent errors in grammar, spelling, punctuation, or word choice may occur, that were not noted before signing the document and should not alter the intended clinical meaning. Lab Data Attestation: I reviewed the patient's lab results. Labs: Laboratory Results - last 24 hr 06/19/25 06/19/25 09:25 10:15 WBC 8.9 RBC 3.90 L Hgb 11.9 L Hct 36.9 L MCV 94.6 MCH 30.5 MCHC 32.2 RDW Std Deviation 47.5 H RDW Coeff of Sasha 13.7 Plt Count 217 MPV 9.4 Immature Gran % (Auto) 0.200 Neut % (Auto) 84.4 H Lymph % (Auto) 8.6 L [place] % (Auto) 6.5 Eos % (Auto) 0.2 Baso % (Auto) 0.1 Absolute Neuts (auto) 7.5 Absolute Lymphs (auto) 0.77 L Nucleated RBC % 0 Sodium 140 Potassium 3.9 Chloride 104 Carbon Dioxide 23.9 Anion Gap 11 BUN 20 H Creatinine 1.06 Estim Creat Clear Calc 38.51 L Est GFR (MDRD) Non-Af 52 L BUN/Creatinine Ratio 18.5 Glucose 124 H Lactic Acid < 1.0 Calcium 9.0 Total Bilirubin 0.63 AST 17 ALT < 5 Alkaline Phosphatase 83 Total Protein 7.1 Albumin 3.9 Globulin 3.2 Albumin/Globulin Ratio 1.2 Urine Color Yellow Urine Clarity Clear Urine pH 6.0 Ur Specific [place] 1.015 Urine Protein 30 H Urine Glucose (UA) Normal Urine Ketones Negative Urine Occult Blood 25 H Urine Nitrite Negative Urine Bilirubin Negative Urine Urobilinogen Normal Ur Leukocyte Esterase Negative Urine RBC 0-5 SEEN Urine WBC 0 SEEN Ur Squamous Epith Cells 0-5 SEEN Urine Bacteria 0 SEEN Urine Mucus 0 SEEN Radiography Diagnostic Testing: Clinical Impression(s) from Imaging Studies Brain CT 06/19/25 09:12 IMPRESSION: CHRONIC CHANGES. NO ACUTE FINDINGS. Sinusitis. Reading Location: [id number] Chest X-Ray 06/19/25 09:12 IMPRESSION: Low lung volumes. No acute cardiopulmonary process. Reading Location: [facility] Rhythm Strip Rhythm Strip: Sinus Rhythm Rate: 85 Ectopy: None EKG Initial EKG: Attestation: I personally reviewed and interpreted this EKG as follows: Interpretation: Sinus Rhythm and No Acute Injury Pattern Comments: Nml axis & intervals; nml EKG Management Discussion w/another healthcare provider: Hospitalist Discharge Plan Dx/Rx/DC Orders Clinical Impression: Sinusitis, Debility, Parkinson disease, Acute encephalopathy Disposition Disposition: [facility]
[2025-06-19] MEDS: 0.9% Normal Saline (500mL Bag) 500 ML 1000 ML IV (09:35)
[2025-06-19 09:36] LABS: Hematocrit 36.9 % (37-47); Hemoglobin 11.9 g/dL (12.0-15.0); Immature Granulocytes Count 0.020 X10^3/uL (0.0-0.0); Mean Corp Hgb Conc 32.2 g/dL (32-36); Mean Corpuscular Volume 94.6 fL (81-99); Mean Platelet Vol. 9.4 fl (6.2-12.0); NRBC Flagged by Analyzer 0 % (0-5); Platelet Count 217 K/mm3 (150-450); RBC Distribution Width CV 13.7 % (11.6-14.6); RBC Distribution Width SD 47.5 fl (35.1-43.9); Red Blood Count 3.90 M/mm3 (4.2-5.4); White Blood Count 8.9 K/mm3 (4.4-11.0)
[2025-06-19 10:04] LABS: AST(SGOT) 17 U/L (<=31); Alanine Aminotransfer ALT/SGPT < 5 U/L (<=34); Albumin, Serum 3.9 g/dL (3.4-4.8); Alkaline Phosphatase 83 U/L (35-104); Anion Gap 11 (5-15); BUN 20 mg/dL (4-19); BUN/Creat Ratio 18.5 RATIO (10-20); Calcium,Total 9.0 mg/dL (7.6-11.0); Carbon Dioxide 23.9 mmol/L (21.0-32.0); Chloride 104 mmol/L (98-108); Estimated Creatinine Clearance 38.51 ml/min (50-250); Globulin 3.2 g/dL (2.2-4.2); Glucose 124 mg/dL (70-99); Potassium 3.9 mmol/L (3.3-5.1)
[2025-06-19 10:35] LABS: Mucous, Urine 0 SEEN /hpf (<or=2+)
[2025-06-19 10:46] LABS: Color, Urine Yellow (Yellow); Glucose, Dipstick Normal (Normal); Ketone-Dipstick Negative (Negative); Leukocyte Esterase-Dipstick Negative /ul (Negative); Nitrite-Dipstick Negative (Negative); Occult Blood-Urine 25 /ul (Negative); Protein-Dipstick 30 mg/dl (Negative); Specific Gravity, Urine 1.015 (1.002-1.030); Urine Bilirubin Dipstick Negative (Negative)
[2025-06-19 10:52] LABS: Red Blood Cells-Urine 0-5 SEEN /hpf (0-5); Squamous Epithelial Cells - UA 0-5 SEEN /hpf (5-10)
--- NOTE | 2025-06-19 11:58 | PCM.HP.STD ---
HPI - General General Date of Admission: 06/19/25 Date of Service: 06/19/25 Chief Complaint: confusion. weakness HPI Narrative SILVIANO WU, is a 84 F who presents with weakness and confusion. This is a 84-year old female with h/o Parkinson's presents with worsening confusion and weakness. Sent to the ED and there was concerning for sinusitis and she received Augmentin, but given her weakness, admission requested. Patient is a poor historian and no family present, so history obtained from ED physician. [ ] COUNT INCLUDES [facility] Medical History UTI (urinary tract infection) Former smoker Migraines Fall History of Parkinson's disease Pyloric stenosis Hiatal hernia Eosinophilia Hypocalcemia Chronic renal failure, stage 3a Hypokalemia Depression GERD (gastroesophageal reflux disease) Hypothyroidism Osteoarthritis of left knee Wears partial dentures Wears glasses Post-menopausal Alcohol use History of steroid therapy Thyroid disease Arthritis Kidney stone DVT (deep venous thrombosis) Gastric reflux Former smoker Chronic cough History of pain when walking History of edema History of Holter monitoring History of stress test Hypertension Parkinson's disease Home Medications ?Medication ?Instructions ?Recorded ?Last Taken ?Type carbidopa 25 mg-levodopa 100 mg 1.5 tab PO DAILY Parkinson 11/15/19 06/18/25 History tablet atorvastatin 40 mg tablet 40 mg PO QHS Cholesterol 04/06/23 06/18/25 History levothyroxine 50 mcg tablet 50 mcg PO DAILY Thyroid 04/06/23 06/18/25 History meloxicam 15 mg tablet 15 mg PO DAILY PRN Arthritis 04/06/23 06/18/25 History potassium chloride 10 mEq 10 meq PO DAILY supplement 04/06/23 06/18/25 History tablet,extended release (Klor-Con) acetaminophen 500 mg tablet 1,000 mg (2 x 500 mg) PO Q8 #1 TAB 05/08/23 Unknown Rx paroxetine HCl 20 mg tablet 20 mg PO DAILY #30 tabs 05/08/23 06/18/25 Rx alendronate 70 mg tablet 70 mg PO SCHAEFER 11/05/23 06/18/25 History donepezil 10 mg tablet 10 mg PO QHS 11/05/23 Unknown History Held on 11/06/23. Instructions: I would hold this and see if it makes a difference-would hold for at least 2 weeks buspirone 10 mg tablet 10 mg PO BID 06/19/25 06/18/25 History carbidopa 25 mg-levodopa 100 mg 2 tab PO TID parkinsons 06/19/25 06/18/25 History tablet (Sinemet) cholecalciferol (vitamin D3) 25 50 mcg PO QDAY 06/19/25 06/18/25 History mcg (1,000 unit) tablet memantine 10 mg tablet 10 mg PO BID 06/19/25 06/18/25 History mirabegron 25 mg tablet,extended 25 mg PO DAILY 06/19/25 06/18/25 History release 24 hr pantoprazole 40 mg tablet,delayed 40 mg PO DAILY 06/19/25 06/18/25 History release Allergy/AdvReac Type Severity Reaction Status Date / Time No Known Allergies Allergy Verified 06/19/25 08:55 Family History Other Heart disease Surgical History Status post left knee replacement Status post total left knee replacement Hx of bilateral cataract extraction History of carpal tunnel surgery of right wrist Hx of tubal ligation Social History household members: spouse Smoking Status: Former smoker alcohol intake: current details: Social. substance use type: does not use ROS ROS Narrative Tremors. All review of systems were negative except as mentioned above in the history of present illness and the other review of systems. Vital Signs Vital Signs Vital Signs: 06/19/25 08:52 06/19/25 08:58 06/19/25 08:59 Temperature 36.7 C Temperature Source Oral Pulse Rate 85 Respiratory Rate 20 H Respiratory Effort Normal Non-Labored Normal Non-Labored Respiratory Depth Normal Respiratory Pattern Normal Normal Blood Pressure 139/104 H Blood Pressure Mean 115 Pulse Ox 97 Oxygen Delivery Method Room Air 06/19/25 10:34 06/19/25 11:30 06/19/25 11:53 Temperature 36.7 C Temperature Source Pulse Rate 87 84 Respiratory Rate 18 18 Respiratory Effort Respiratory Depth Respiratory Pattern Blood Pressure 150/89 H 144/88 H 144/88 H Blood Pressure Mean 109 106 106 Pulse Ox 97 97 Oxygen Delivery Method Room Air Weight Weight: 75.75 kg Body Mass Index (BMI) 29.5 Physical Exam Const alert General Appearance: cooperative HEENT normocephalic, head/scalp atraumatic and hearing grossly normal bilaterally Resp normal respiratory effort, no retractions, no use of accessory muscles and clear to auscultation bilaterally Cardio regular rate, regular rhythm, S1 normal heart sound and S2 normal heart sound GI normal to inspection, nondistended, normoactive bowel sounds, soft to palpation, non-tender and non-distended Extremity normal to inspection and no clubbing, cyanosis or edema Neuro moves all extremities Sensorium / Orientation: awake, alert, oriented to person and oriented to place; Negative for oriented to time Speech: speech normal Psych affect normal Results Lab / Micro Data 06/19/25 09:25 06/19/25 09:25 Labs: Laboratory Results - last 24 hr 06/19/25 09:25: WBC 8.9, RBC 3.90 L, Hgb 11.9 L, Hct 36.9 L, MCV 94.6, MCH 30.5, MCHC 32.2, RDW Std Deviation 47.5 H, RDW Coeff of Sasha 13.7, Plt Count 217, MPV 9.4, Immature Gran % (Auto) 0.200, Neut % (Auto) 84.4 H, Lymph % (Auto) 8.6 L, [place] % (Auto) 6.5, Eos % (Auto) 0.2, Baso % (Auto) 0.1, Absolute Neuts (auto) 7.5, Absolute Lymphs (auto) 0.77 L, Nucleated RBC % 0, Sodium 140, Potassium 3.9, Chloride 104, Carbon Dioxide 23.9, Anion Gap 11, BUN 20 H, Creatinine 1.06, Estim Creat Clear Calc 38.51 L, Est GFR (MDRD) Non-Af 52 L, BUN/Creatinine Ratio 18.5, Glucose 124 H, Lactic Acid < 1.0, Calcium 9.0, Total Bilirubin 0.63, AST 17, ALT < 5, Alkaline Phosphatase 83, Total Protein 7.1, Albumin 3.9, Globulin 3.2, Albumin/Globulin Ratio 1.2 06/19/25 10:15: Urine Color Yellow, Urine Clarity Clear, Urine pH 6.0, Ur Specific [place] 1.015, Urine Protein 30 H, Urine Glucose (UA) Normal, Urine Ketones Negative, Urine Occult Blood 25 H, Urine Nitrite Negative, Urine Bilirubin Negative, Urine Urobilinogen Normal, Ur Leukocyte Esterase Negative, Urine RBC 0-5 SEEN, Urine WBC 0 SEEN, Ur Squamous Epith Cells 0-5 SEEN, Urine Bacteria 0 SEEN, Urine Mucus 0 SEEN Rhythm Strip Rhythm Strip: Sinus Rhythm Rate: 85 Ectopy: None Imaging Radiology Impression Brain CT 06/19/25 09:12 IMPRESSION: CHRONIC CHANGES. NO ACUTE FINDINGS. Sinusitis. Reading Location: [facility] Chest X-Ray 06/19/25 09:12 IMPRESSION: Low lung volumes. No acute cardiopulmonary process. Reading Location: [facility] Assessment & Plan Assessment/Plan (1) Debility: PLAN: from possible sinusitis in patient with Parkinson's PT OT eval and treat. CM to assist PLAN: Plan Possible sinusitis: continue Augmentin. Parkinson's: continue sinemet Hypothyroidism: levothyoxine VTE prophylaxis: LMWH. Charges/Coding Visit Charges Inpatient E&M: 52415 Init Hosp L2
[2025-06-19] MEDS: 0.9% Saline Lock 10 ML Syringe IV (19:07)
[2025-06-19] MEDS: Memantine Hydrochloride 10 MG Tablet PO (20:17)
[2025-06-20 00:04] VITALS: BP 129/75; PULSE 64; RESP 16; TEMP 37.2; O2SAT 93
[2025-06-20 02:25] VITALS: BP 120/74; PULSE 62; RESP 14; TEMP 37.1; O2SAT 93
[2025-06-20 08:37] VITALS: BP 155/94; PULSE 79; RESP 17; TEMP 36.8; O2SAT 93
--- NOTE | 2025-06-20 08:37 | PCM.PN.HOSP ---
Reason for Visit Chief Complaint: confusion. weakness Subjective Subjective DW patient's at bedside. Patient still confused. Gets weaker at night typically. Objective Data Objective Data Vital Signs: Vital Signs Temp Pulse Resp BP Pulse Ox O2 Del Method 37.1 C 62 14 120/74 93 Room Air 06/20/25 02:25 06/20/25 02:25 06/20/25 02:25 06/20/25 02:25 06/20/25 02:25 06/20/25 02:25 Oxygen Delivery Method Room Air Weight: 75.75 kg Body Mass Index (BMI) 29.5 Intake & Output: Intake and Output for Last 24 Hours 06/18/25 06/19/25 06/20/25 23:59 23:59 23:59 Intake Total 750 / 750 Output Total 350 / 350 200 / 200 Balance 400 / 400 -200 / -200 Lab / Micro Data 06/19/25 09:25 06/19/25 09:25 Labs: Laboratory Results - last 24 hr 06/19/25 09:25: WBC 8.9, RBC 3.90 L, Hgb 11.9 L, Hct 36.9 L, MCV 94.6, MCH 30.5, MCHC 32.2, RDW Std Deviation 47.5 H, RDW Coeff of Sasha 13.7, Plt Count 217, MPV 9.4, Immature Gran % (Auto) 0.200, Neut % (Auto) 84.4 H, Lymph % (Auto) 8.6 L, [place] % (Auto) 6.5, Eos % (Auto) 0.2, Baso % (Auto) 0.1, Absolute Neuts (auto) 7.5, Absolute Lymphs (auto) 0.77 L, Nucleated RBC % 0, Sodium 140, Potassium 3.9, Chloride 104, Carbon Dioxide 23.9, Anion Gap 11, BUN 20 H, Creatinine 1.06, Estim Creat Clear Calc 38.51 L, Est GFR (MDRD) Non-Af 52 L, BUN/Creatinine Ratio 18.5, Glucose 124 H, Lactic Acid < 1.0, Calcium 9.0, Total Bilirubin 0.63, AST 17, ALT < 5, Alkaline Phosphatase 83, Total Protein 7.1, Albumin 3.9, Globulin 3.2, Albumin/Globulin Ratio 1.2 06/19/25 10:15: Urine Color Yellow, Urine Clarity Clear, Urine pH 6.0, Ur Specific [place] 1.015, Urine Protein 30 H, Urine Glucose (UA) Normal, Urine Ketones Negative, Urine Occult Blood 25 H, Urine Nitrite Negative, Urine Bilirubin Negative, Urine Urobilinogen Normal, Ur Leukocyte Esterase Negative, Urine RBC 0-5 SEEN, Urine WBC 0 SEEN, Ur Squamous Epith Cells 0-5 SEEN, Urine Bacteria 0 SEEN, Urine Mucus 0 SEEN Radiography Diagnostic Testing: Radiology Impression Brain CT 06/19/25 09:12 IMPRESSION: CHRONIC CHANGES. NO ACUTE FINDINGS. Sinusitis. Reading Location: [facility] Chest X-Ray 06/19/25 09:12 IMPRESSION: Low lung volumes. No acute cardiopulmonary process. Reading Location: [facility] Rhythm Strip Rhythm Strip: Sinus Rhythm Rate: 85 Ectopy: None Physical Exam Const Constitutional Narrative: up in chair. pleasantly confused. Assessment & Plan Assessment/Plan (1) Debility: PLAN: from possible sinusitis in patient with Parkinson's PT OT eval and treat. CM to assist PLAN: Plan Possible sinusitis: continue Augmentin. Parkinson's: continue sinemet Hypothyroidism: levothyoxine VTE prophylaxis: LMWH. Disposition: TBD. Therapy evaluations pending. Charges/Coding Visit Charges Inpatient E&M: 52257 [facility] Hosp L1
[2025-06-20] MEDS: Potassium Chloride Oral Tablet 10 MEQ PO (08:43)
[2025-06-20] MEDS: Memantine Hydrochloride 10 MG Tablet PO ×2 (08:43→20:30)
[2025-06-20] MEDS: Cholecalciferol (VIT D3) 25 MCG TABLET (1,000 UNITS) 50 MCG PO (08:43)
--- NOTE | 2025-06-20 11:40 | CASEMGMT ---
HUNT Met with patient to complete HUNT form. HUNT form and its content were verbally explained and patient's questions were answered to the best of my ability.? Patient voiced understanding and signed HUNT form.? Patient provided a copy of signed HUNT form and original placed in patient's chart.? Patient had no further questions. Stacey Lassiter, Discharge Planning Asst
--- NOTE | 2025-06-20 12:04 | CASEMGMT ---
JAVI ROBB Assessment Face to Face with patient for initial transition planning/care coordination assessment. JAVI ROBB introduced self and role at [facility], pt voices understanding. Pt is A&Ox4 and is resting comfortably in the chair and is calm. Pt's at the bedside. Care providers, pharmacy, and demographics verified. Admitting dx: Debility LACE Strata: 2 PCP: Sanchez Lacey Specialists: Zoë Whitmore ([facility] Neuro), Geeta ([facility] Neuro) Preferred Pharmacy: [facility] Insurance: [facility] A/B, [facility] Prescription Benefit: Yes LNOK: Lefty (H), Toyin (Daughter) Living Arrangements: Pt lives with her in a 2 story home with a FFSU and one step to enter ADLs/IADLs: Indep at baseline. However, pt's current 6-Click score is 6 and PT is pending Transportation: DME: Rollator, Lift chair, tub bench, FWW, RTS, cane HHC/SNF: Hx at [facility] RU. Hx with OP PT at [facility] Pt?s goal: Return to PLOF Plan: TBD. Anticipate Inpt RU vs HH vs OP Tx. CM to follow PT evaluation. At this time, the pt states that she is unsure of what she needs or wants to do at the time of DC and would like to work with PT/OT first. Pt and pt's deny further questions or concerns at this time. Report given to MS3 JAVI ROBB. Tayla Hernandez RN, CM
--- NOTE | 2025-06-20 13:50 | CASEMGMT ---
Addendum entered by Rosa Pruett 06/20/25 15:55: Pt will be reviewed tomorrow for acceptance. Updated hospitalist as well as pt and family. Addendum entered by Rosa Pruett 06/20/25 15:28: Pt dtr present in room, pt and family have decided that patient would like a referral to [facility] Rehab unit. Referral made at this time. Original Note: Spoke with therapy regarding pt status. RN CM into pt room, pt and want to speak with their dtr before making any decisions regarding dc plans. Pt dtr to be present this date at approx 3:30pm. They will notify RN CM when she arrives. Discussed 3 MN rule and that pt is in observation status. Pt and deny further needs at this time.
[2025-06-20 14:26] VITALS: BP 121/61; PULSE 86; RESP 16; TEMP 36.6; O2SAT 94
--- NOTE | 2025-06-20 15:43 | CASEMGMT ---
Social Work SW asked family to bring in the documents as able. , daughter Toyin and step son Mat present. states he is HCPOA but was thinking to change it to daughter Toyin. SW explained that the pt would need to be directing that change, and she may not be able to do that right now. SW did explain to pt's he can elicit the help of the family to make decisions. Pt has another daughter Radha as well, as per Toyin they are all working together to make decisions. SIMRAN Ragland
[2025-06-20 20:21] VITALS: BP 100/77; PULSE 78; RESP 15; TEMP 36.6; O2SAT 94
[2025-06-21 04:00] VITALS: BP 151/90; PULSE 78; RESP 15; TEMP 37.1; O2SAT 94
[2025-06-21 07:54] VITALS: BP 149/57; PULSE 80; RESP 17; TEMP 36.8; O2SAT 93
[2025-06-21 07:57] VITALS: O2SAT 93
[2025-06-21] MEDS: Cholecalciferol (VIT D3) 25 MCG TABLET (1,000 UNITS) 50 MCG PO (08:05)
[2025-06-21] MEDS: Potassium Chloride Oral Tablet 10 MEQ PO (08:06)
[2025-06-21] MEDS: Memantine Hydrochloride 10 MG Tablet PO ×2 (08:06→21:22)
--- NOTE | 2025-06-21 08:36 | PCM.PN.HOSP ---
Reason for Visit Chief Complaint: confusion. weakness Subjective Subjective weak with therapy. Objective Data Objective Data Vital Signs: Vital Signs Temp Pulse Resp BP Pulse Ox O2 Del Method 36.8 C 80 17 149/57 H 93 Room Air 06/21/25 07:54 06/21/25 07:54 06/21/25 07:54 06/21/25 07:54 06/21/25 07:57 06/21/25 07:57 Oxygen Delivery Method Room Air Weight: 75.75 kg Body Mass Index (BMI) 29.5 Intake & Output: Intake and Output for Last 24 Hours 06/19/25 06/20/25 06/21/25 23:59 23:59 23:59 Intake Total 750 / 750 30 / 30 Output Total 350 / 350 700 / 700 Balance 400 / 400 -700 / -700 30 / 30 Lab / Micro Data 06/19/25 09:25 06/19/25 09:25 Rhythm Strip Rhythm Strip: Sinus Rhythm Rate: 85 Ectopy: None Physical Exam Const alert and no apparent distress Constitutional Narrative: up in chair. pleasantly confused. Neuro Sensorium / Orientation: awake and alert Assessment & Plan Assessment/Plan (1) Debility: PLAN: from possible sinusitis in patient with Parkinson's PT OT eval and treat. CM to assist PLAN: Plan Possible sinusitis: continue Augmentin. Parkinson's: continue sinemet Hypothyroidism: levothyoxine VTE prophylaxis: LMWH. Disposition:looking into acute rehab. says if that does not work, then he plan to take the patient home with additional care. Charges/Coding Visit Charges Inpatient E&M: 02263 Subs Hosp L1
--- NOTE | 2025-06-21 10:44 | CASEMGMT ---
TC to Rehab Unit admissions, spoke with Oksana, she will notify RN CM when an answer to accept pt is received.
--- NOTE | 2025-06-21 12:06 | CASEMGMT ---
Addendum entered by Rosa Pruett 06/21/25 15:18: 1430- JAVI ROBB into pt room, pt and aware that pt will be reviewed tomorrow for acceptance. Pt states if pt cannot go to [facility] Rehab, then they will take pt home. Discussed the possibility of HH if that is the case. Pt states he would be interested in that. Requested dc food trades assistants take list to pt and of HHC choices. Original Note: Received tc from Oksana at [facility] Rehab unit, Dr. Fung is not going to be in today. Pt referral will need to be reviewed tomorrow.
[2025-06-21 14:00] VITALS: BP 131/69; PULSE 69; RESP 17; TEMP 36.8; O2SAT 97
--- NOTE | 2025-06-21 15:50 | CASEMGMT ---
Discharge Planning A list of?HH providers including quality and resource use data and consistent with the patient's preferred geographic region, medical needs, and insurance network was created in CarePort Guide.? This list was provided to the pt and her . Stacey Lassiter, Discharge Planning Asst.
[2025-06-21 21:21] VITALS: BP 124/77; PULSE 82; RESP 17; TEMP 36.6; O2SAT 95
[2025-06-21] MEDS: 0.9% Saline Lock 10 ML Syringe IV (21:23)
[2025-06-21] MEDS: MELATONIN 3 MG TABLET PO (21:23)
[2025-06-22 06:06] VITALS: BP 117/69; PULSE 60; RESP 18; TEMP 36.6; O2SAT 92
--- NOTE | 2025-06-22 08:07 | PCM.PN.HOSP ---
Reason for Visit Chief Complaint: confusion. weakness Subjective Subjective No events overnight. Objective Data Objective Data Vital Signs: Vital Signs Temp Pulse Resp BP Pulse Ox O2 Del Method 36.6 C 60 18 117/69 92 Room Air 06/22/25 06:06 06/22/25 06:06 06/22/25 06:06 06/22/25 06:06 06/22/25 06:06 06/22/25 06:25 Oxygen Delivery Method Room Air Weight: 75.75 kg Body Mass Index (BMI) 29.5 Intake & Output: Intake and Output for Last 24 Hours 06/20/25 06/21/25 06/22/25 23:59 23:59 23:59 Intake Total 510 / 510 480 / 480 Output Total 700 / 700 200 / 200 Balance -700 / -700 310 / 310 480 / 480 Lab / Micro Data 06/19/25 09:25 06/19/25 09:25 Rhythm Strip Rhythm Strip: Sinus Rhythm Rate: 85 Ectopy: None Physical Exam Const alert and no apparent distress HEENT head/scalp atraumatic and moist oral mucous membranes Resp normal respiratory effort, no retractions, no use of accessory muscles and clear to auscultation bilaterally Cardio regular rate, regular rhythm, S1 normal heart sound and S2 normal heart sound GI normal to inspection, nondistended, normoactive bowel sounds, soft to palpation, non-tender and non-distended Neuro Sensorium / Orientation: awake and alert Assessment & Plan Assessment/Plan (1) Debility: PLAN: from possible sinusitis in patient with Parkinson's PT OT eval and treat. CM to assist Declined by rehab. Plan is for the patient go home with home care. PLAN: Plan Possible sinusitis: continue Augmentin. Parkinson's: continue sinemet Hypothyroidism: levothyoxine VTE prophylaxis: LMWH. Disposition:looking into acute rehab. says if that does not work, then he plan to take the patient home with additional care. Charges/Coding Visit Charges Inpatient E&M: 56520 [facility] Hosp L1
[2025-06-22 10:21] VITALS: BP 115/62; PULSE 69; RESP 16; TEMP 36.6; O2SAT 92
[2025-06-22] MEDS: Potassium Chloride Oral Tablet 10 MEQ PO (10:25)
[2025-06-22] MEDS: Cholecalciferol (VIT D3) 25 MCG TABLET (1,000 UNITS) 50 MCG PO (10:26)
[2025-06-22] MEDS: Memantine Hydrochloride 10 MG Tablet PO (10:26)
--- NOTE | 2025-06-22 11:00 | CASEMGMT ---
Received confirmation that pt is not accepted at [facility] Rehab unit d/t end stage Parkinsons and needing 2 assist with therapy. Updated dc telecom assistant of this who will notify pt and family and obtain HH choices. Hospitalist reports pt states again this date that she will dc home if not accepted.
--- NOTE | 2025-06-22 11:32 | CASEMGMT ---
Discharge Planning A list of?HH providers including quality and resource use data and consistent with the patient's preferred geographic region, medical needs, and insurance network was created in CarePort Guide.? Per pts husbands request, this list was sent via text to pts daughterToyin ([phone]). Stacey Lassiter, Discharge Planning Asst.
--- NOTE | 2025-06-22 13:34 | CASEMGMT ---
Addendum entered by Rosa Pruett 06/22/25 16:11: Pt accepted by [facility], they can see pt on Thursday. JAVI ROBB into pt room, discussed with pt and that HH can come out on Thursday, that they eval pt and determine frequency of visits. Answered all questions regarding HHC. Received tc from [facility]. She is also aware of what [facility] will provide. She states they are planning on getting more hours from [facility]. Pt , pt and dtr all agree they do not want pt to go to SNF. Answered all questions. TC to Tabatha at [facility] to make aware that Thursday is acceptable for pt and to add WAREHOUSE ASSEMBLY WORKER to referral, left vm. Addendum entered by Rosa Pruett 06/22/25 13:35: Updated hospitalist on pt dc plan. Original Note: DC social worker assistant notified JAVI ROBB that pt first choice is [facility] HH. TC to [facility], left vm with referral.
[2025-06-22 14:22] VITALS: BP 138/71; PULSE 75; RESP 18; TEMP 36.5; O2SAT 95
--- NOTE | 2025-06-22 15:56 | PCM.DC.SUM ---
Providers Date of Admission: 06/20/25 Primary Care Physician: Dr. Sanchez Lacey MD Reason For Visit: DEBILITY Diagnosis Discharge Diagnosis (1) Debility: Status: Acute Code(s): R53.81 - Other malaise Plan: from possible sinusitis in patient with Parkinson's PT OT eval and treat. CM to assist Declined by rehab. Plan is for the patient go home with home care. Plan Possible sinusitis: continue Augmentin. Parkinson's: continue sinemet Hypothyroidism: levothyoxine VTE prophylaxis: LMWH. Disposition:looking into acute rehab. says if that does not work, then he plan to take the patient home with additional care. Medications at Discharge Home Medications carbidopa 25 mg-levodopa 100 mg tablet 1.5 tab PO DAILY Parkinson 11/15/19 atorvastatin 40 mg tablet 40 mg PO QHS Cholesterol 04/06/23 levothyroxine 50 mcg tablet 50 mcg PO DAILY Thyroid 04/06/23 meloxicam 15 mg tablet 15 mg PO DAILY PRN Arthritis 04/06/23 potassium chloride 10 mEq tablet,extended release (Klor-Con) 10 meq PO DAILY supplement 04/06/23 acetaminophen 500 mg tablet 1,000 mg (2 x 500 mg) PO Q8 #1 TAB 05/08/23 paroxetine HCl 20 mg tablet 20 mg PO DAILY #30 tabs 05/08/23 alendronate 70 mg tablet 70 mg PO SCHAEFER 11/05/23 donepezil 10 mg tablet 10 mg PO QHS 11/05/23 buspirone 10 mg tablet 10 mg PO BID 06/19/25 carbidopa 25 mg-levodopa 100 mg tablet (Sinemet) 2 tab PO TID parkinsons 06/19/25 cholecalciferol (vitamin D3) 25 mcg (1,000 unit) tablet 50 mcg PO QDAY 06/19/25 memantine 10 mg tablet 10 mg PO BID 06/19/25 mirabegron 25 mg tablet,extended release 24 hr 25 mg PO DAILY 06/19/25 pantoprazole 40 mg tablet,delayed release 40 mg PO DAILY 06/19/25 amoxicillin 875 mg-potassium clavulanate 125 mg tablet 1 tab PO BID #8 tabs 06/22/25 Hospital Course Operations None Procedures None Summary of Care Provided Hospital Course: Patient with increased confusion and weakness at home. Patient was valued with therapy recommendation with therapy. Family was interested in acute rehab. [facility]. Patient was evaluated by rehab but not deemed a candidate for that. The family would prefer to take her home with home care. Patient otherwise doing well no other events. Patient did have a CAT scan that was concerning for sinusitis. While not patient has a bacterial sinusitis she was started on Augmentin and will continue for total 7 days. Weight / BMI Weight Weight: 75.75 kg Body Mass Index (BMI) 29.5 ABG / Lab / Microbiology Data 06/19/25 09:25 06/19/25 09:25 D/C Instructions DC O2, CPAP, BIPAP Needs Home O2 Discharge instructions: No Meaningful Use Info Meaningful Use Meaningful Use Diagnoses (Choose all that apply): None applicable Discharge Plan Admission Admit Date/Time: 06/20/25 15:58 Primary Reason for Your Visit: Debility Attending Provider: Santosh Wang Primary Care Provider: Sanchez Lacey Discharge Orders/Prescriptions Prescriptions: New amoxicillin-pot clavulanate 875-125 mg Tablet 1 tab PO BID Qty: 8 0RF Continued carbidopa-levodopa 1 EACH tablet 1.5 tab PO DAILY Rx Instructions: at 10 pm atorvastatin 40 mg tablet 40 mg PO QHS levothyroxine 50 mcg tablet 50 mcg PO DAILY Patient Comments: TAKE 1 TABLET BY MOUTH ONCE DAILY. TAKE ON EMPTY STOMACH. FOR THYROID. meloxicam 15 mg tablet 15 mg PO DAILY PRN (Reason: Arthritis ) potassium chloride [Klor-Con 10] 10 mEq tablet extended release 10 meq PO DAILY Patient Comments: TAKE 1 TABLET BY MOUTH EVERY DAY WITH BREAKFAST acetaminophen 500 mg Tablet 1,000 mg PO Q8 Qty: 1 0RF Rx Instructions: Take 1,000 mg every 8 hours for 1-2 weeks and as the pain gets better you can convert to taking it every 8 hours as needed. paroxetine HCl 20 mg Tablet 20 mg PO DAILY Qty: 30 0RF buspirone 10 mg tablet 10 mg PO BID memantine 10 mg tablet 10 mg PO BID carbidopa-levodopa [Sinemet] 25-100 mg tablet 2 tab PO TID Rx Instructions: 10 am, 2 pm, 6pm cholecalciferol (vitamin D3) 25 mcg (1,000 unit) tablet 50 mcg PO QDAY mirabegron 25 mg tablet extended release 24 hr 25 mg PO DAILY pantoprazole 40 mg tablet,delayed release (DR/EC) 40 mg PO DAILY donepezil 10 mg tablet 10 mg PO QHS alendronate 70 mg tablet 70 mg PO SCHAEFER Referrals / Follow Up: Sanchez Lacey MD [Primary Care Provider, Internal Medicine] Charges/Coding Visit Charges Inpatient E&M: 20383 Disch Hosp
[2025-06-22 17:49] VITALS: BP 141/76; PULSE 80; RESP 18; TEMP 36.6; O2SAT 94
== END 2025-06-22 17:46 | disposition home health service (06) | DRG 948 ==
LOC: ED 11:42 → MS3 12:08
PROVIDERS: Emergency Provider Emergency Medicine; PCP Internal Medicine
DX: R53.81 Other malaise (principal); E03.9 Hypothyroidism, unspecified; G20.A1 Parkinson's disease without dyskinesia, without mention of fluctuations; N18.31 Chronic kidney disease, stage 3a; I12.9 Hypertensive chronic kidney disease with stage 1 through stage 4 chronic kidney disease, or unspecified chronic kidney disease; J32.9 Chronic sinusitis, unspecified; Z79.83 Long term (current) use of bisphosphonates; Z86.718 Personal history of other venous thrombosis and embolism; Z87.891 Personal history of nicotine dependence; Z79.899 Other long term (current) drug therapy
CPT/HCPCS: 51702; 70450; 71045; 80053; 81001; 83605; 85025; 93005; 97116; 97162; 97167; 97530; 97535; 99285; A4216